=== PATIENT | female | born 1950 | race Caucasian/White ===

== ENCOUNTER → 2020-06-22 | Outpatient (CLI) | payer MEDICARE ==
[~2020-06-22] VITALS: Ht 162.6 cm; Wt 53.5 kg
[~2020-06-22] MED LIST: MAGNESIUM SULFATE 1GM 100 ML IV ONE; MULTIVIT INFUSN,ADULT 4,VIT K 10 ML, THIAMINE INJ 100 MG, FOLIC ACID INJ 1 MG in IV NOR... IV ONE
== END | disposition home or self-care (01) ==
LOC: OPS 10:39
PROVIDERS: ATTEND Internal Medicine
DX: K70.0 Alcoholic fatty liver (principal)
CPT/HCPCS: 96365; 96368; J3411; J3475; J3490; J7030; 96366

== ENCOUNTER → 2020-10-17 | Outpatient (CLI) | payer MEDICARE ==
[~2020-10-17] VITALS: Ht 170.2 cm; Wt 55.8 kg
[~2020-10-17] MED LIST changes: +LIDOCAINE WITH 8.4% SOD BICARB 3 ML DISP.SYRIN. ONE; -MAGNESIUM SULFATE 1GM 100 ML IV ONE; -MULTIVIT INFUSN,ADULT 4,VIT K 10 ML, THIAMINE INJ 100 MG, FOLIC ACID INJ 1 MG in IV NOR... IV ONE
[2020-10-17 08:32] VITALS: BP 132/72
--- NOTE | 2020-10-17 09:31 | NUR ---
pt arrived on foot to unit. she stated that her incision line has been draining clear yellow liquid since she was sent home post surgery about 10 days ago. upon inspection the mid abd incision line was continuously draining from the very top of the incision line. no specific open area noted , the rest of the incision line is dry and intact. Within minutes of pt changing into a hospital gown and a blanket covering her , she was soaked. fitted an ostomy bag over incision line to catch the continuous flow of ascites fluid. pt's sister stated that the pt has not been seen for follow up from surgeon. she stated that she didn't even have an appointment . discussed with pt and her sister that the surgeon needs to be seen as soon as she can get in so that he can look at the incision site. gave them the name and phone number of the surgeon's office. she mad an appointment for tomorrow afternoon. showed patient how to empty ostomy bag and to measure drainage and keep a total amount record for the doctor. the paracentesis was not done as pt did not have enough fluid accumulation in an area to safely access for drainage. discussed with pt and family that once wound is healed and she is not continuously leaking anymore that her ascites fluid will probably start to accumulate and that she will need to follow up with her primary physician and they will have to order a paracentesis at that time. pt out to vehicle per w/c
--- NOTE | 2020-10-17 09:34 | RAD ---
Limited abdominal ultrasound 10/17/2020 INDICATION: Evaluate for ascites, possible paracentesis Discussion: Limited abdominal ultrasound was performed. Only scant ascites is seen between the diaphragm and liver. No other significant ascites was identified throughout all 4 quadrants of the abdomen. There was not adequate fluid for paracentesis. IMPRESSION: Only trace ascites between liver and diaphragm noted. Paracentesis was not performed.
== END | disposition home or self-care (01) ==
LOC: INTRAD 07:22
PROVIDERS: ATTEND Internal Medicine
DX: R18.8 Other ascites (principal); F41.9 Anxiety disorder, unspecified; F32.9 Major depressive disorder, single episode, unspecified; Z79.899 Other long term (current) drug therapy; Z87.891 Personal history of nicotine dependence; Z72.89 Other problems related to lifestyle
CPT/HCPCS: 76705

== ENCOUNTER 2020-12-05 10:08 | Outpatient (CLI) | payer MEDICARE ==
[2020-12-05] VITALS (7 sets, daily range): BP systolic 13–146; BP diastolic 64–77
[~2020-12-05] VITALS: Ht 170.2 cm; Wt 59.0 kg
[2020-12-05 10:59] LABS: BASO % 0 % (0-3); EOS # 0.1 x10^3/uL (0.0-0.7); EOS % 1 % (0-3); HEMATOCRIT 34.6 % (36.0-47.0); HEMOGLOBIN 11.7 g/dL (12.0-15.5); LYMPH # 0.8 x10^3/uL (1.0-4.8); LYMPH % 12 % (24-48); MEAN CORPUSCULAR HEMOGLOBIN 36 pg (25-35); MEAN CORPUSCULAR HGB CONC 34 g/dL (31-37); MEAN CORPUSCULAR VOLUME 108 fL (79-100); MONO # 0.4 x10^3/uL (0.0-1.1); MONO % 6 % (0-9); NEUT # 5.9 x10^3/uL (1.8-7.7); NEUT % 81 % (31-73); PLATELET COUNT 149 x10^3/uL (140-400); RED BLOOD COUNT 3.21 x10^6/uL (3.50-5.40); RED CELL DISTRIBUTION WIDTH 12.6 % (11.5-14.5); WHITE BLOOD COUNT 7.2 x10^3/uL (4.0-11.0)
[2020-12-05] MEDS ORDERED: VITA80003 PO (11:11)
[2020-12-05] MEDS ORDERED: VITA1TAB31 PO (11:12)
[2020-12-05] MEDS ORDERED: IBUP-1027 PO (11:13)
[2020-12-05] MEDS ORDERED: MILK140C PO (11:13)
[2020-12-05 11:23] LABS: PROTHROMBIN TIME PATIENT 15.3 SEC (11.7-14.0)
[2020-12-05] MEDS ORDERED: LIDOCAINE WITH 8.4% SOD BICARB 3 ML DISP.SYRIN. ONE (11:53)
[2020-12-05] MEDS ORDERED: LIDOCAINE WITH 8.4% SOD BICARB 3 ML DISP.SYRIN. IJ ONE (12:30)
--- NOTE | 2020-12-05 13:30 | NUR ---
Discharge Note: JOSIAH GREENBERG Discharge instructions and discharge home medications reviewed with Patient and a copy given. All questions have been answered and understanding verbalized. The following instructions and handouts were given: PARACENTESIS RIGHT LOWER ABDOMINAL DRESSING REMAINED CLEAN, DRY AND INTACT. Patient discharged to HOME with HER BROTHER, DOREEN via PRIVATE VEHICLE.
[2020-12-05 14:00] LABS: BF CLARITY CLEAR; BF COLOR YELLOW; BF MON % 36 %; BF PMN % 64 %; BF RBC COUNT 60 /cmm (Not Established); BF SOURCE ASCITES; BF WBC COUNT 2153 /cmm (Not Established)
--- NOTE | 2020-12-06 08:43 | RAD ---
Ultrasound-guided paracentesis 12/06/2020 6:39 AM Procedure: The risks and benefits of the procedure were discussed the patient. Informed consent was obtained. A timeout procedure was performed. Sonographic evaluation of the abdomen was performed demonstrating ascites . The right lower quadrant was prepped and draped using maximum sterile barrier technique. 1% lidocaine without epinephrine was administered for local anesthesia. Real-time ultrasonographic guidance was used in passing a 5 English Yueh catheter into the fluid collection. 3.1 L of serous ascites was removed. The catheter was removed and pressure held to achieve hemostasis. A sterile dressing was applied. Impression: Successful ultrasound-guided paracentesis
--- NOTE | 2020-12-06 18:06 | PATHOLOGY ---
Note [facility] Accession Number: [id number] TESTS RESULT FLAG UNITS REF RANGE LAB Clinician Provided Cytology Information No. of containers..01 Other (Miscellaneous) Source: 01 PERITONEAL FLUID DIAGNOSIS: 02 PERITONEAL FLUID NEGATIVE FOR MALIGNANT CELLS. FOCALLY REACTIVE MESOTHELIAL CELLS PRESENT WITHIN A BACKGROUND OF CHRONIC AND ACUTE INFLAMMATORY CELLS. THIS INTERPRETATION INCLUDES EVALUATION OF A CELL BLOCK. Signed out by: 02 Jacob Martinez MD, Pathologist NPI- [id number] Performed by: Shannen Jackson, Master Police Detective ([facility]) Gross description: 32ML, YELLOW, 1TP 1CB /LCS 12/06/2020 0631 Local FLAG LEGEND: L-Low Normal,H-High Normal,LL-Alert Low,HH-Alert High <-Panic Low,>-Panic High,A-Abnormal,AA-Critical Abnormal Performed at: [facility] [place] [address] Dennis Liz MD, [address] [facility] [address] [place] [address] Jacob Martinez MD, Performed at: [address], [place], [place] [id number] MD Dennis Liz MD Phone: [phone]
== END 2020-12-05 13:45 | disposition home or self-care (01) ==
LOC: INTRAD 10:08
PROVIDERS: ATTEND Internal Medicine
DX: K70.31 Alcoholic cirrhosis of liver with ascites (principal); F41.9 Anxiety disorder, unspecified; F32.9 Major depressive disorder, single episode, unspecified; Z87.891 Personal history of nicotine dependence; Z79.899 Other long term (current) drug therapy; Z72.89 Other problems related to lifestyle; Z98.890 Other specified postprocedural states
CPT/HCPCS: 36415; 49083; 85025; 85610; 87071; 87075; 89050; C1892; J3490

== ENCOUNTER 2020-12-27 08:02 | Outpatient (CLI) | payer MEDICARE ==
[~2020-12-27] VITALS: Ht 165.1 cm; Wt 59.0 kg
[2020-12-27] VITALS (9 sets, daily range): BP systolic 118–128; BP diastolic 64–80
[~2020-12-27 08:02] MED LIST changes: +IBUP-1027 PO; -LIDOCAINE WITH 8.4% SOD BICARB 3 ML DISP.SYRIN. ONE; +MILK140C PO; +VITA1TAB31 PO; +VITA80003 PO
[2020-12-27] MEDS ORDERED: LIDOCAINE WITH 8.4% SOD BICARB 3 ML DISP.SYRIN. ONE (09:07)
[2020-12-27] MEDS ORDERED: LIDOCAINE WITH 8.4% SOD BICARB 3 ML DISP.SYRIN. IJ ONE (09:15)
[2020-12-27] MEDS ORDERED: ALBUMIN HUMAN 25% 50 ML IV ONE (10:00)
[2020-12-27] MEDS ORDERED: ALBUMIN HUMAN 25% 100 ML IV ONE ×2 (10:00→10:22)
--- NOTE | 2020-12-27 11:08 | NUR ---
OLGA barkley'gisselle. Pt home with family. Discharge instructions reviewed with pt.
--- NOTE | 2020-12-28 08:01 | RAD ---
Ultrasound-guided paracentesis 12/28/2020 5:56 AM Procedure: The risks and benefits of the procedure were discussed the patient. Informed consent was obtained. A timeout procedure was performed. Sonographic evaluation of the abdomen was performed demonstrating ascites . The right lower quadrant was prepped and draped using maximum sterile barrier technique. 1% lidocaine without epinephrine was administered for local anesthesia. Real-time ultrasonographic guidance was used in passing a 5 Luxembourgish Yueh catheter into the fluid collection. 5.3 L of serous ascites was removed. The catheter was removed and pressure held to achieve hemostasis. A sterile dressing was applied. Impression: Successful ultrasound-guided paracentesis
== END 2020-12-27 11:32 | disposition home or self-care (01) ==
LOC: INTRAD 08:02
PROVIDERS: ATTEND Internal Medicine
DX: R18.8 Other ascites (principal); F41.9 Anxiety disorder, unspecified; F32.9 Major depressive disorder, single episode, unspecified; Z79.899 Other long term (current) drug therapy; Z98.890 Other specified postprocedural states; Z87.891 Personal history of nicotine dependence; Z72.89 Other problems related to lifestyle
CPT/HCPCS: 49083; C1892; J3490

== ENCOUNTER 2021-01-03 17:20 | Inpatient (IN) | payer MEDICARE ==
[~2021-01-03] VITALS: Ht 170.2 cm; Wt 59.3 kg
[2021-01-03] MEDS ORDERED: PIPERACILLIN/TAZOBACTAM 3.375 GM in IV NORMAL SALINE 50ML 50 ML IV ONE (18:45)
--- NOTE | 2021-01-03 18:48 | ED.ADGEN ---
Past Medical History Past Medical History: Liver Disease, Other Additional Past Medical Histor: "LIVER FAILURE" Past Surgical History: Tonsillectomy Smoking Status: Former Smoker Alcohol Use: Occasionally General Adult EDM: Chief Complaint: ABDOMINAL PAIN HPI: HPI: Patient is a 70-year-old female with past medical history of cirrhosis who presents to the emergency room with a distended abdomen and tachycardia. She saw her primary care physician today who noticed that she was tachycardic and wa s concerned that she might have peritonitis. Patient does have a hernia and the family has noticed that there is some purple discoloration to it. They state that the primary care physician was able to get it fully reduced in the clinic. This hernia is new. She had a hernia repair for hernia above this in September. Patient denies any URI symptoms, shortness of breath, cough, fever, chills, swe ats, nausea, vomiting, diarrhea. She has been lethargic and listless. Review of Systems: Review of Systems: Complete ROS is negative unless otherwise documented in HPI Current Medications: Current Medications Medications (Trade) Dose Ordered Sig/Ramya Start Time Stop Time Status Last Admin Dose Admin Info (CONTRAST GIVEN -- Rx MONITORING) 1 each PRN DAILY PRN 01/03/21 20:45 01/05/21 20:44 Iohexol (Omnipaque 240 Mg/ml) 50 ml 1X ONCE 01/03/21 20:45 01/03/21 20:46 DC 01/03/21 20:46 50 ML Iohexol (Omnipaque 300 Mg/ml) 60 ml 1X ONCE 01/03/21 20:00 01/03/21 20:01 DC 01/03/21 20:00 60 ML Piperacillin Sod/ Tazobactam Sod 3.375 gm/Sodium Chloride 50 ml @ 100 mls/hr 1X ONCE 01/03/21 18:45 01/03/21 19:14 DC 01/03/21 19:12 100 MLS/HR Sodium Chloride 1,000 ml @ 1,000 mls/hr 1X ONCE 01/03/21 21:45 01/03/21 22:44 Allergies: Allergies: Allergies Coded Allergies Type Severity Reaction Last Updated Verified No Known Drug Allergies 06/22/20 No Physical Exam: PE: General: Awake, alert, NAD. Cachectic, well hydrated. Cooperative HEENT: Atraumatic, EOMI, PERRL, airway patent, moist oral mucosa Neck: Supple, trachea midline Respiratory: CTA bilaterally, normal effort, no wheezing/crackles CV: Sinus tachycardia, no murmur, cap refill <2 GI: Soft, distended abdomen, nontender, umbilical hernia with bruising on the overlying skin MSK: No obvious deformities Skin: Warm, dry, intact Neuro: A&O x3, speech NL, sensory and motor grossly intact, no focal deficits Psych: Normal affect, normal mood, not suicidal or homicidal Current Patient Data: Labs: Laboratory Tests Test 01/03/21 18:42 01/03/21 19:58 White Blood Count 14.3 x10^3/uL (4.0-11.0) H Red Blood Count 3.54 x10^6/uL (3.50-5.40) Hemoglobin 12.2 g/dL (12.0-15.5) Hematocrit 36.5 % (36.0-47.0) Mean Corpuscular Volume 103 fL (79-100) H Mean Corpuscular Hemoglobin 34 pg (25-35) Mean Corpuscular Hemoglobin Concent 33 g/dL (31-37) Red Cell Distribution Width 13.3 % (11.5-14.5) Platelet Count 356 x10^3/uL (140-400) Neutrophils (%) (Auto) 88 % (31-73) H Lymphocytes (%) (Auto) 7 % (24-48) L Monocytes (%) (Auto) 5 % (0-9) Eosinophils (%) (Auto) 0 % (0-3) Basophils (%) (Auto) 0 % (0-3) Neutrophils # (Auto) 12.6 x10^3/uL (1.8-7.7) H Lymphocytes # (Auto) 1.0 x10^3/uL (1.0-4.8) Monocytes # (Auto) 0.7 x10^3/uL (0.0-1.1) Eosinophils # (Auto) 0.0 x10^3/uL (0.0-0.7) Basophils # (Auto) 0.0 x10^3/uL (0.0-0.2) Segmented Neutrophils % 83 % (35-66) H Band Neutrophils % 2 % (0-9) Lymphocytes % 12 % (24-48) L Monocytes % 3 % (0-10) Toxic Granulation Slight Platelet Estimate Adequate (ADEQUATE) Macrocytosis Slight Sodium Level 133 mmol/L (136-145) L Potassium Level 4.4 mmol/L (3.5-5.1) Chloride Level 97 mmol/L (98-107) L Carbon Dioxide Level 27 mmol/L (21-32) Anion Gap 9 (6-14) Blood Urea Nitrogen 25 mg/dL (7-20) H Creatinine 1.0 mg/dL (0.6-1.0) Estimated GFR (Cockcroft-Gault) 55.0 BUN/Creatinine Ratio 25 (6-20) H Glucose Level 138 mg/dL (70-99) H Lactic Acid Level 3.3 mmol/L (0.4-2.0) H Calcium Level 9.1 mg/dL (8.5-10.1) Total Bilirubin 2.3 mg/dL (0.2-1.0) H Aspartate Amino Transferase (AST) 31 U/L (15-37) Alanine Aminotransferase (ALT) 21 U/L (14-59) Alkaline Phosphatase 137 U/L (46-116) H Total Protein 7.9 g/dL (6.4-8.2) Albumin 2.1 g/dL (3.4-5.0) L Albumin/Globulin Ratio 0.4 (1.0-1.7) L Urine Collection Type U cath Urine Color Kajal Urine Clarity Hazy Urine pH 5.0 (<5.0-8.0) Urine Specific Dyess >=1.030 (1.000-1.030) Urine Protein Negative mg/dL (NEG-TRACE) Urine Glucose (UA) Negative mg/dL (NEG) Urine Ketones (Stick) Negative mg/dL (NEG) Urine Blood Negative (NEG) Urine Nitrite Positive (NEG) Urine Bilirubin Negative (NEG) Urine Urobilinogen Dipstick 1.0 mg/dL (0.2 mg/dL) Urine Leukocyte Esterase Trace (NEG) Urine RBC 0 /HPF (0-2) Urine WBC 1-4 /HPF (0-4) Urine Bacteria Mod /HPF (0-FEW) Urine Mucus Mod /LPF Laboratory Tests 01/03/21 18:42 Laboratory Tests 01/03/21 18:42 Vital Signs: Vital Signs Date Time Temp Pulse Resp B/P (MAP) Pulse Ox O2 Delivery O2 Flow Rate FiO2 2/17/21 18:04 98.3 135 27 144/90 (108) 94 Room Air 98.3 EKG: EKG: [] Heart Score: Risk Factors: Risk Factors: DM, Current or recent (<one month) smoker, HTN, HLP, family history of CAD, obesity. Risk Scores: Score 0 - 3: 2.5% MACE over next 6 weeks - Discharge Home Score 4 - 6: 20.3% MACE over next 6 weeks - Admit for Clinical Observation Score 7 - 10: 72.7% MACE over next 6 weeks - Early Invasive Strategies Radiology/Procedures: Radiology/Procedures: [] Course & Med Decision Making: Course & Med Decision Making Pertinent Labs and Imaging studies reviewed. (See chart for details) Patient is a 70-year-old female who presents to the emergency room with concerns of possible peritonitis. Family does feel like her abdomen is more distended than it was after her paracentesis. Patient is tachycardic upon arrival. Pat ient was given Zosyn, blood cultures and lactic were ordered. Patient is hernia is reducible. CT on pelvis will be done to evaluate for any bowel or other signs of infection. We will also determine the amount of ascites. CT shows large amount of ascites with a possible transition point within the hernia concerning for possible small bowel obstruction. Patient does not have any signs of ischemic bowel on the CT. Patient's hernia is fully reducible on exam. She does not have any abdominal pain or vomiting. She does not have any nausea. Given that she is asymptomatic and clinically does not appear to have a small bowel obstruction will hold off on putting an NG in at this time. I will consult Dr. Sneed her surgeon for evaluation in the morning. GI is also consulted. I discussed the case with Dr. Delgadillo who will admit the patient for further care and evaluation. Nona Disclaimer: Nona Disclaimer: This electronic medical record was generated, in whole or in part, using a voice recognition dictation system. Departure Departure Impression: Primary Impression: UTI (urinary tract infection) Additional Impressions: Hernia Sepsis Disposition: ADMITTED INPT THIS HOSP Condition: STABLE Referrals: SCOTT MCCORMICK MD (PCP) Problem Qualifiers ANDRES HAUSER MD Jan 03, 2021 18:48
[2021-01-03 19:11] LABS: BASO % 0 % (0-3); EOS % 0 % (0-3); HEMATOCRIT 36.5 % (36.0-47.0); HEMOGLOBIN 12.2 g/dL (12.0-15.5); LYMPH % 7 % (24-48); MEAN CORPUSCULAR HEMOGLOBIN 34 pg (25-35); MEAN CORPUSCULAR HGB CONC 33 g/dL (31-37); MEAN CORPUSCULAR VOLUME 103 fL (79-100); MONO # 0.7 x10^3/uL (0.0-1.1); MONO % 5 % (0-9); NEUT # 12.6 x10^3/uL (1.8-7.7); NEUT % 88 % (31-73); PLATELET COUNT 356 x10^3/uL (140-400); RED BLOOD COUNT 3.54 x10^6/uL (3.50-5.40); RED CELL DISTRIBUTION WIDTH 13.3 % (11.5-14.5); WHITE BLOOD COUNT 14.3 x10^3/uL (4.0-11.0)
[2021-01-03 19:24] LABS: CALCIUM 9.1 mg/dL (8.5-10.1); POTASSIUM 4.4 mmol/L (3.5-5.1)
--- NOTE | 2021-01-03 19:24 | RAD ---
XR CHEST 1V History: Reason: sepsis / Spl. Instructions: / History: Comparison: None. Findings: Low lung volumes. Elevation the right hemidiaphragm. Linear bibasilar opacities, likely atelectasis. Possible small right pleural effusion. No pneumothorax. Normal heart size. Impression: 1. Low lung volumes with elevation the right hemidiaphragm and linear bibasilar opacities, likely at electasis. 2. Possible small right pleural effusion. Electronically signed by: Gael Powell DO (01/03/2021 7:22 PM) [facility]
[2021-01-03 19:30] LABS: ALBUMIN 2.1 g/dL (3.4-5.0); ALBUMIN/GLOBULIN RATIO 0.4 (1.0-1.7); TOTAL BILIRUBIN 2.3 mg/dL (0.2-1.0); TOTAL PROTEIN 7.9 g/dL (6.4-8.2)
[2021-01-03 19:49] LABS: % BANDS 2 % (0-9); % LYMPHS 12 % (24-48); % MONOS 3 % (0-10); % SEGS 83 % (35-66); PLT ESTIMATE ADEQUATE (ADEQUATE)
[2021-01-03 19:53] LABS: TOXIC GRANULATION SLIGHT
[2021-01-03] MEDS ORDERED: IOHEXOL 300 MG/ML 100ML VIAL. IV ONE (20:00)
[2021-01-03 20:11] LABS: BILIRUBIN,URINE NEGATIVE (NEG); COLOR,URINE AMBER; NITRITE,URINE POSITIVE (NEG); PROTEIN,URINE NEGATIVE (NEG-TRACE)
[2021-01-03 20:16] LABS: CLARITY,URINE HAZY
[2021-01-03 20:17] LABS: BACTERIA,URINE MOD /HPF (0-FEW); RBC,URINE 0 /HPF (0-2)
[2021-01-03] MEDS ORDERED: IOHEXOL 240 MG/ML 50ML VIAL. PO ONE (20:45)
[2021-01-03] MEDS ORDERED: CONTRAST GIVEN. MC PRN (20:45)
--- NOTE | 2021-01-03 21:06 | RAD ---
CT ABDOMEN+PELVIS W History: Reason: abd pain, hernia, tachycardia / Spl. Instructions: OMNI 60ML / History: Technique: After the administration of intravenous contrast, CT imaging was performed of the abdomen and pelvis. Multiplanar images are reviewed. Exposure: One or more of the following individualized dose reduction techniques were utilized for thi s examination: 1. Automated exposure control 2. Adjustment of the mA and/or kV according to patient size 3. Use of iterative reconstruction technique. Comparison: October 05, 2020 Findings: Lower chest: Elevation of the right hemidiaphragm. Right middle and lower lobe atelectasis. Linear le ft basilar atelectasis. Abdomen and pelvis: Large abdominal and pelvic ascites. The liver, spleen, adrenal glands, pancreas a nd gallbladder are unremarkable. No biliary ductal dilatation. Patent portal veins. Small right renal hypodensity, likely cyst although too small to further characterize. No hydronephrosis. Colonic diverticulosis. Normal appendix. There are regions of colonic wall thickening may relate to n ondistention or venous congestion. Small retroperitoneal lymph nodes, unchanged. Decompressed urinary bladder. Mild atheromatous plaque within the nonaneurysmal abdominal aorta and branch vessels. Mildly dilated small bowel loops with transition point at the level of the anterior abdominal wall he rnia containing several loops of small bowel. Decompressed distal small bowel loops. Contrast noted w ithin the proximal mid small bowel loops. Fluid within the hernia sac. Diffuse mesenteric edema. Bones: No pathologic osseous lesions. Impression: 1. Mildly dilated small bowel loops with transition point at the anterior abdominal wall bowel conta ining hernia, concerning for small bowel obstruction. 2. Large abdominal and pelvic ascites. Electronically signed by: Gael Powell DO (01/03/2021 9:04 PM) [facility]
[2021-01-03] MEDS ORDERED: IV NORMAL SALINE 1000ML BAG 1,000 ML IV ONE (21:45)
[2021-01-03 23:30] VITALS: BP 123/69
[2021-01-04] MEDS ORDERED: IBUPROFEN 400 MG TABLET. PO PRN (00:45)
[2021-01-04] MEDS ORDERED: MAGNESIUM HYDROXIDE 2,400 MG/30 ML ORAL.SUSP. PO PRN (01:30)
[2021-01-04] MEDS ORDERED: CALCIUM CARBONATE 500 MG TAB.CHEW PO PRN (01:30)
[2021-01-04] MEDS ORDERED: ONDANSETRON PF 4 MG/2 ML VIAL. IVP PRN (01:30)
[2021-01-04] MEDS ORDERED: BISACODYL 10 MG SUPP.RECT. PR PRN (01:30)
[2021-01-04] MEDS ORDERED: MAG HYDROX/ALUMINUM HYD/SIMETH 30 ML ORAL.SUSP PO PRN (01:30)
[2021-01-04] MEDS: IBUPROFEN 400 MG TABLET. PO PRN ×2 (02:50→16:39)
[2021-01-04 03:00] VITALS: BP 125/62
[2021-01-04 06:23] LABS: BASO # 0.1 x10^3/uL (0.0-0.2); BASO % 1 % (0-3); EOS % 0 % (0-3); HEMATOCRIT 31.7 % (36.0-47.0); HEMOGLOBIN 10.7 g/dL (12.0-15.5); LYMPH # 1.2 x10^3/uL (1.0-4.8); LYMPH % 9 % (24-48); MEAN CORPUSCULAR HEMOGLOBIN 35 pg (25-35); MEAN CORPUSCULAR HGB CONC 34 g/dL (31-37); MEAN CORPUSCULAR VOLUME 102 fL (79-100); MONO # 0.8 x10^3/uL (0.0-1.1); MONO % 6 % (0-9); NEUT # 11.4 x10^3/uL (1.8-7.7); NEUT % 84 % (31-73); PLATELET COUNT 277 x10^3/uL (140-400); RED BLOOD COUNT 3.11 x10^6/uL (3.50-5.40); RED CELL DISTRIBUTION WIDTH 13.1 % (11.5-14.5); WHITE BLOOD COUNT 13.6 x10^3/uL (4.0-11.0)
[2021-01-04 06:41] LABS: CALCIUM 8.3 mg/dL (8.5-10.1); CREATININE 0.8 mg/dL (0.6-1.0); GFR 71.1; POTASSIUM 3.5 mmol/L (3.5-5.1)
[2021-01-04 07:00] VITALS: BP 102/62
[2021-01-04] MEDS: HEPARIN for SUB-Q USE 5,000 UNIT/ML VIAL. SQ SCH ×2 (08:54→12:30)
[2021-01-04] MEDS ORDERED: PIP/TAZO PER PHARMACY MC PRN (09:00)
--- NOTE | 2021-01-04 09:02 | PDOC2 ---
CARLOS A WHEAT PHLEBOTOMY SERVICES REPRESENTATIVE 01/04/21 0902: CONSULT Date of Consult Date of Consult DATE: 01/04/21 TIME: 08:46 Reason for Consult Reason for Consult: SBO, hernia Referring Physician Referring Physician: ER Identification/Chief Complaint Chief Complaint distention, tachycardia Source Source: Chart review, Patient History of Present Illness Reason for Visit: Hx of alcoholic cirrhosis, underwent umbilical hernia repair with Dr Cat 10/05/20. Seen by PCP yesterday and noted distention, tachycardia, and abdominal bugle had some discoloration. Noted she had a paracentesis on 12/27 5.3 L of serous ascites was removed--significant ascites again noted reports no abdominal pain, no n/v, had a stool today per patient Past Medical History Heme/Onc: No pertinent hx Hepatobiliary: Cirrhosis Psych: Addictions Past Surgical History Past Surgical History: Hernia Repair Family History Family History: No Significant Social History Quit ALCOHOL: heavy (quit 11/16/20) Current Problem List Problem List Problems Medical Problems: (1) Sepsis Status: Acute Current Medications Current Medications Current Medications Piperacillin Sod/ Tazobactam Sod 3.375 gm/Sodium Chloride 50 ml @ 100 mls/hr 1X ONCE IV Last administered on 01/03/21at 19:12; Start 01/03/21 at 18:45; Stop 01/03/21 at 19:14; Status DC Iohexol (Omnipaque 300 Mg/ml) 60 ml 1X ONCE IV Last administered on 01/03/21at 20:00; Start 01/03/21 at 20:00; Stop 01/03/21 at 20:01; Status DC Iohexol (Omnipaque 240 Mg/ml) 50 ml 1X ONCE PO Last administered on 01/03/21at 20:46; Start 01/03/21 at 20:45; Stop 01/03/21 at 20:46; Status DC Info (CONTRAST GIVEN -- Rx MONITORING) 1 each PRN DAILY PRN MC SEE COMMENTS; Start 01/03/21 at 20:45; Stop 01/05/21 at 20:44 Sodium Chloride 1,000 ml @ 1,000 mls/hr 1X ONCE IV Last administered on 01/03/21at 21:54; Start 01/03/21 at 21:45; Stop 01/03/21 at 22:44; Status DC Ibuprofen (Motrin) 400 mg PRN Q6HRS PRN PO INFLAMMATION; Start 01/04/21 at 00:45 Ondansetron HCl (Zofran) 4 mg PRN Q6HRS PRN IVP NAUSEA/VOMITING; Start 01/04/21 at 01:30 Al Hydroxide/Mg Hydroxide (Mylanta Plus Xs) 30 ml PRN Q3HRS PRN PO HEARTBURN / GAS; Start 01/04/21 at 01:30 Calcium Carbonate/ Glycine (Tums) 500 mg PRN Q3HRS PRN PO UPSET STOMACH; Start 01/04/21 at 01:30 Ibuprofen (Motrin) 400 mg PRN Q6HRS PRN PO MILD PAIN 1-3 Last administered on 01/04/21at 02:50; Start 01/04/21 at 01:30 Magnesium Hydroxide (Milk Of Magnesia) 2,400 mg PRN Q12HR PRN PO CONSTIPATION; Start 01/04/21 at 01:30 Bisacodyl (Dulcolax Supp) 10 mg PRN DAILY PRN [place] CONSTIPATION; Start 01/04/21 at 01:30 Heparin Sodium (Porcine) (Heparin Sodium) 5,000 unit Q12HR SQ ; Start 01/04/21 at 09:00 Active Scripts Active Reported Milk Thistle (Milk Thistle Seed Extract) 140 Mg Capsule 140 Mg PO DAILY Ibuprofen 400 Mg Tablet 400 Mg PO PRN Q6HRS PRN D3 + K2 Dots 1,000 Units Tab (Vitamin D3/Vitamin K2) 1 Each Tab.rapdis 1 Tab PO DAILY 30 Days Vitamin A 8,000 Unit Capsule 1 Cap PO DAILY 30 Days Allergies Allergies: Coded Allergies: No Known Drug Allergies (Unverified , 06/22/20) ROS General: YES: Fatigue, Malaise; No: Chills PSYCHOLOGICAL ROS: No: Anxiety, Depression Eyes: No Blurry vision, No Double vision HEENT: No: Heacaches, Sore Throat Hematological and Lymphatic: YES: Bleeding Problems; No: Blood Clots Respiratory: No: Cough, Shortness of breath Cardiovascular: No Chest Pain, No Palpitations Gastrointestinal: Yes Other (see hpi) Genitourinary: No Dysuria, No Hematuria Musculoskeletal: No Joint Pain, No Muscle Pain Neurological: No Impaired Coord/balance, No Numbness/Tingling Skin: No Pruritus, No Rash Physical Exam General: Cooperative, No acute distress, Other HEENT: Other (scleral icterus ) Lungs: Clear to auscultation, Normal air movement Heart: Other (tachy) Abdomen: Other (distended from ascites, large umbilical hernia with skin discoloration, however reducible and none tender ) Extremities: No clubbing, No cyanosis Skin: No rashes, No breakdown Neuro: Normal speech, Sensation intact Psych/Mental Status: Mental status NL, Mood NL Vitals VITALS Vital Signs Date Time Temp Pulse Resp B/P (MAP) Pulse Ox O2 Delivery O2 Flow Rate FiO2 01/04/21 07:28 Room Air 01/04/21 07:00 97.6 104 16 102/62 (75) 95 97.6 Labs Labs Laboratory Tests Test 01/03/21 18:42 01/03/21 19:58 01/04/21 01:01 01/04/21 05:19 White Blood Count 14.3 x10^3/uL (4.0-11.0) 13.6 x10^3/uL (4.0-11.0) Red Blood Count 3.54 x10^6/uL (3.50-5.40) 3.11 x10^6/uL (3.50-5.40) Hemoglobin 12.2 g/dL (12.0-15.5) 10.7 g/dL (12.0-15.5) Hematocrit 36.5 % (36.0-47.0) 31.7 % (36.0-47.0) Mean Corpuscular Volume 103 fL (79-100) 102 fL (79-100) Mean Corpuscular Hemoglobin 34 pg (25-35) 35 pg (25-35) Mean Corpuscular Hemoglobin Concent 33 g/dL (31-37) 34 g/dL (31-37) Red Cell Distribution Width 13.3 % (11.5-14.5) 13.1 % (11.5-14.5) Platelet Count 356 x10^3/uL (140-400) 277 x10^3/uL (140-400) Neutrophils (%) (Auto) 88 % (31-73) 84 % (31-73) Lymphocytes (%) (Auto) 7 % (24-48) 9 % (24-48) Monocytes (%) (Auto) 5 % (0-9) 6 % (0-9) Eosinophils (%) (Auto) 0 % (0-3) 0 % (0-3) Basophils (%) (Auto) 0 % (0-3) 1 % (0-3) Neutrophils # (Auto) 12.6 x10^3/uL (1.8-7.7) 11.4 x10^3/uL (1.8-7.7) Lymphocytes # (Auto) 1.0 x10^3/uL (1.0-4.8) 1.2 x10^3/uL (1.0-4.8) Monocytes # (Auto) 0.7 x10^3/uL (0.0-1.1) 0.8 x10^3/uL (0.0-1.1) Eosinophils # (Auto) 0.0 x10^3/uL (0.0-0.7) 0.0 x10^3/uL (0.0-0.7) Basophils # (Auto) 0.0 x10^3/uL (0.0-0.2) 0.1 x10^3/uL (0.0-0.2) Segmented Neutrophils % 83 % (35-66) Band Neutrophils % 2 % (0-9) Lymphocytes % 12 % (24-48) Monocytes % 3 % (0-10) Toxic Granulation Slight Platelet Estimate Adequate (ADEQUATE) Macrocytosis Slight Sodium Level 133 mmol/L (136-145) 131 mmol/L (136-145) Potassium Level 4.4 mmol/L (3.5-5.1) 3.5 mmol/L (3.5-5.1) Chloride Level 97 mmol/L (98-107) 96 mmol/L (98-107) Carbon Dioxide Level 27 mmol/L (21-32) 26 mmol/L (21-32) Anion Gap 9 (6-14) 9 (6-14) Blood Urea Nitrogen 25 mg/dL (7-20) 20 mg/dL (7-20) Creatinine 1.0 mg/dL (0.6-1.0) 0.8 mg/dL (0.6-1.0) Estimated GFR (Cockcroft-Gault) 55.0 71.1 BUN/Creatinine Ratio 25 (6-20) Glucose Level 138 mg/dL (70-99) 105 mg/dL (70-99) Lactic Acid Level 3.3 mmol/L (0.4-2.0) 1.7 mmol/L (0.4-2.0) Calcium Level 9.1 mg/dL (8.5-10.1) 8.3 mg/dL (8.5-10.1) Total Bilirubin 2.3 mg/dL (0.2-1.0) Aspartate Amino Transf (AST/SGOT) 31 U/L (15-37) Alanine Aminotransferase (ALT/SGPT) 21 U/L (14-59) Alkaline Phosphatase 137 U/L (46-116) Total Protein 7.9 g/dL (6.4-8.2) Albumin 2.1 g/dL (3.4-5.0) Albumin/Globulin Ratio 0.4 (1.0-1.7) Urine Collection Type U cath Urine Color Kajal Urine Clarity Hazy Urine pH 5.0 (<5.0-8.0) Urine Specific [place] >=1.030 (1.000-1.030) Urine Protein Negative mg/dL (NEG-TRACE) Urine Glucose (UA) Negative mg/dL (NEG) Urine Ketones (Stick) Negative mg/dL (NEG) Urine Blood Negative (NEG) Urine Nitrite Positive (NEG) Urine Bilirubin Negative (NEG) Urine Urobilinogen Dipstick 1.0 mg/dL (0.2 mg/dL) Urine Leukocyte Esterase Trace (NEG) Urine RBC 0 /HPF (0-2) Urine WBC 1-4 /HPF (0-4) Urine Bacteria Mod /HPF (0-FEW) Urine Mucus Mod /LPF Laboratory Tests Test 01/03/21 18:42 01/03/21 19:58 01/04/21 01:01 01/04/21 05:19 White Blood Count 14.3 x10^3/uL (4.0-11.0) 13.6 x10^3/uL (4.0-11.0) Red Blood Count 3.54 x10^6/uL (3.50-5.40) 3.11 x10^6/uL (3.50-5.40) Hemoglobin 12.2 g/dL (12.0-15.5) 10.7 g/dL (12.0-15.5) Hematocrit 36.5 % (36.0-47.0) 31.7 % (36.0-47.0) Mean Corpuscular Volume 103 fL (79-100) 102 fL (79-100) Mean Corpuscular Hemoglobin 34 pg (25-35) 35 pg (25-35) Mean Corpuscular Hemoglobin Concent 33 g/dL (31-37) 34 g/dL (31-37) Red Cell Distribution Width 13.3 % (11.5-14.5) 13.1 % (11.5-14.5) Platelet Count 356 x10^3/uL (140-400) 277 x10^3/uL (140-400) Neutrophils (%) (Auto) 88 % (31-73) 84 % (31-73) Lymphocytes (%) (Auto) 7 % (24-48) 9 % (24-48) Monocytes (%) (Auto) 5 % (0-9) 6 % (0-9) Eosinophils (%) (Auto) 0 % (0-3) 0 % (0-3) Basophils (%) (Auto) 0 % (0-3) 1 % (0-3) Neutrophils # (Auto) 12.6 x10^3/uL (1.8-7.7) 11.4 x10^3/uL (1.8-7.7) Lymphocytes # (Auto) 1.0 x10^3/uL (1.0-4.8) 1.2 x10^3/uL (1.0-4.8) Monocytes # (Auto) 0.7 x10^3/uL (0.0-1.1) 0.8 x10^3/uL (0.0-1.1) Eosinophils # (Auto) 0.0 x10^3/uL (0.0-0.7) 0.0 x10^3/uL (0.0-0.7) Basophils # (Auto) 0.0 x10^3/uL (0.0-0.2) 0.1 x10^3/uL (0.0-0.2) Segmented Neutrophils % 83 % (35-66) Band Neutrophils % 2 % (0-9) Lymphocytes % 12 % (24-48) Monocytes % 3 % (0-10) Toxic Granulation Slight Platelet Estimate Adequate (ADEQUATE) Macrocytosis Slight Sodium Level 133 mmol/L (136-145) 131 mmol/L (136-145) Potassium Level 4.4 mmol/L (3.5-5.1) 3.5 mmol/L (3.5-5.1) Chloride Level 97 mmol/L (98-107) 96 mmol/L (98-107) Carbon Dioxide Level 27 mmol/L (21-32) 26 mmol/L (21-32) Anion Gap 9 (6-14) 9 (6-14) Blood Urea Nitrogen 25 mg/dL (7-20) 20 mg/dL (7-20) Creatinine 1.0 mg/dL (0.6-1.0) 0.8 mg/dL (0.6-1.0) Estimated GFR (Cockcroft-Gault) 55.0 71.1 BUN/Creatinine Ratio 25 (6-20) Glucose Level 138 mg/dL (70-99) 105 mg/dL (70-99) Lactic Acid Level 3.3 mmol/L (0.4-2.0) 1.7 mmol/L (0.4-2.0) Calcium Level 9.1 mg/dL (8.5-10.1) 8.3 mg/dL (8.5-10.1) Total Bilirubin 2.3 mg/dL (0.2-1.0) Aspartate Amino Transf (AST/SGOT) 31 U/L (15-37) Alanine Aminotransferase (ALT/SGPT) 21 U/L (14-59) Alkaline Phosphatase 137 U/L (46-116) Total Protein 7.9 g/dL (6.4-8.2) Albumin 2.1 g/dL (3.4-5.0) Albumin/Globulin Ratio 0.4 (1.0-1.7) Urine Collection Type U cath Urine Color Kajal Urine Clarity Hazy Urine pH 5.0 (<5.0-8.0) Urine Specific [place] >=1.030 (1.000-1.030) Urine Protein Negative mg/dL (NEG-TRACE) Urine Glucose (UA) Negative mg/dL (NEG) Urine Ketones (Stick) Negative mg/dL (NEG) Urine Blood Negative (NEG) Urine Nitrite Positive (NEG) Urine Bilirubin Negative (NEG) Urine Urobilinogen Dipstick 1.0 mg/dL (0.2 mg/dL) Urine Leukocyte Esterase Trace (NEG) Urine RBC 0 /HPF (0-2) Urine WBC 1-4 /HPF (0-4) Urine Bacteria Mod /HPF (0-FEW) Urine Mucus Mod /LPF Assessment/Plan Assessment/Plan alcoholic cirrhosis --ascites, umbilical hernia---does not appear obstructed--no pain, having bowel function--? worsened by her ongoing ascites will review with Dr Cat, poor surgical candidate JADYN CAT MD 01/04/21 1103: CONSULT Assessment/Plan Assessment/Plan Patient seen and examined by me currently resting comfortably in bed denies any abdominal pain. Recurrent umbilical hernia secondary to her ascites from her alcoholic liver disease. No signs of obstruction hernia was easily reduced without any pain. No reason to repair umbilical hernia at this time due to significantly high surgical risk as well as recurrence as long as ascites is present. Agree with Brenda assessment plan CARLOS A WHEAT APRN Jan 04, 2021 09:02 JADYN CAT MD Jan 04, 2021 11:03
--- NOTE | 2021-01-04 09:16 | NUR ---
SW following. Discussed with RN, pt from home with brother, room air, cardiac diet. Surgery and GI consulted. Surgery still reviewing. Pt had a paracentesis on 01/03/21. Currently on IV abx. RN advised no SW needs at this time. SW will continue to follow.
--- NOTE | 2021-01-04 09:17 | PDOC1 ---
History and Physical Date of Admission Date of Admission DATE: 01/04/21 TIME: 09:16 Source Source: Chart review, Patient History of Present Illness History of Present Illness Ms. Galeano, is a 70-year-old female with past medical history of cirrhosis who presents to the emergency room with a distended abdomen and tachycardia. She saw her primary care physician today who noticed that she was tachycardic and was concerned that she might have peritonitis. Patient does have a hernia and the family has noticed that there is some purple discoloration to it. They state that the primary care physician was able to get it fully reduced in the clinic. This hernia is new. She had a hernia repair for hernia above this in September. Patient denies any URI symptoms, shortness of breath, cough, fever, chills, sweats, nausea, vomiting, diarrhea. She has been lethargic and listless. Past Medical History Cardiovascular: HTN Heme/Onc: No pertinent hx Hepatobiliary: Cirrhosis Psych: Addictions Past Surgical History Past Surgical History: Hernia Repair Family History Family History: No Significant Social History Smoke: No ALCOHOL: heavy (quit 11/16/20) Drugs: None Current Problem List Problem List Problems Medical Problems: (1) Sepsis Status: Acute Current Medications Current Medications Current Medications Piperacillin Sod/ Tazobactam Sod 3.375 gm/Sodium Chloride 50 ml @ 100 mls/hr 1X ONCE IV Last administered on 01/03/21at 19:12; Start 01/03/21 at 18:45; Stop 01/03/21 at 19:14; Status DC Iohexol (Omnipaque 300 Mg/ml) 60 ml 1X ONCE IV Last administered on 01/03/21at 20:00; Start 01/03/21 at 20:00; Stop 01/03/21 at 20:01; Status DC Iohexol (Omnipaque 240 Mg/ml) 50 ml 1X ONCE PO Last administered on 01/03/21at 20:46; Start 01/03/21 at 20:45; Stop 01/03/21 at 20:46; Status DC Info (CONTRAST GIVEN -- Rx MONITORING) 1 each PRN DAILY PRN MC SEE COMMENTS; Start 01/03/21 at 20:45; Stop 01/05/21 at 20:44 Sodium Chloride 1,000 ml @ 1,000 mls/hr 1X ONCE IV Last administered on 01/03/21at 21:54; Start 01/03/21 at 21:45; Stop 01/03/21 at 22:44; Status DC Ibuprofen (Motrin) 400 mg PRN Q6HRS PRN PO INFLAMMATION; Start 01/04/21 at 00:45 Ondansetron HCl (Zofran) 4 mg PRN Q6HRS PRN IVP NAUSEA/VOMITING; Start 01/04/21 at 01:30 Al Hydroxide/Mg Hydroxide (Mylanta Plus Xs) 30 ml PRN Q3HRS PRN PO HEARTBURN / GAS; Start 01/04/21 at 01:30 Calcium Carbonate/ Glycine (Tums) 500 mg PRN Q3HRS PRN PO UPSET STOMACH; Start 01/04/21 at 01:30 Ibuprofen (Motrin) 400 mg PRN Q6HRS PRN PO MILD PAIN 1-3 Last administered on 01/04/21at 02:50; Start 01/04/21 at 01:30 Magnesium Hydroxide (Milk Of Magnesia) 2,400 mg PRN Q12HR PRN PO CONSTIPATION; Start 01/04/21 at 01:30 Bisacodyl (Dulcolax Supp) 10 mg PRN DAILY PRN [place] CONSTIPATION; Start 01/04/21 at 01:30 Heparin Sodium (Porcine) (Heparin Sodium) 5,000 unit Q12HR SQ Last administered on 01/04/21at 08:54; Start 01/04/21 at 09:00 Piperacillin Sod/ Tazobactam Sod (Zosyn Per Pharmacy) 1 each PRN DAILY PRN MC SEE COMMENTS; Start 01/04/21 at 09:00 Piperacillin Sod/ Tazobactam Sod 3.375 gm/Sodium Chloride 50 ml @ 100 mls/hr Q6H IV ; Start 01/04/21 at 09:00 Active Scripts Active Reported Milk Thistle (Milk Thistle Seed Extract) 140 Mg Capsule 140 Mg PO DAILY Ibuprofen 400 Mg Tablet 400 Mg PO PRN Q6HRS PRN D3 + K2 Dots 1,000 Units Tab (Vitamin D3/Vitamin K2) 1 Each Tab.rapdis 1 Tab PO DAILY 30 Days Vitamin A 8,000 Unit Capsule 1 Cap PO DAILY 30 Days Allergies Allergies: Coded Allergies: No Known Drug Allergies (Unverified , 06/22/20) ROS General: No: Chills, Night Sweats, Fatigue, Malaise, Appetite, Other HEENT: No: Heacaches, Visual Changes, Hearing change, Nasal congestion, Nasal discharge, Oral lesions, Sinus pain, Sore Throat, Epistaxis, Sneezing, Snoring, Tinnitus, Vertigo, Vocal changes, Other Respiratory: No: Cough, Hemoptysis, Orthopnea, Pleuritic Pain, Shortness of breath, SOB with excertion, Sputum Changes, Stridor, Tachypnea, Wheezing, Other Cardiovascular: No Chest Pain, No Palpitations, No Orthopnea, No Paroxysmal Noc. Dyspnea, No Edema, No Lt Headedness, No Other Gastrointestinal: No Nausea, No Vomiting, No Abdominal Pain, No Diarrhea, No Constipation, No Melena, No Hematochezia, No Other Genitourinary: No Dysuria, No Frequency, No Incontinence, No Hematuria, No Re tention, No Discharge, No Urgency, No Pain, No Flank Pain, No Other, No , No , No , No , No , No , No Musculoskeletal: No Gait Disturbance, No Joint Pain, No Joint Stiffness, No Joint Swelling, No Muscle Pain, No Muscular Weakness, No Pain In:, No Swelling In:, No Other Neurological: No Behavorial Changes, No Bowel/Bladder ControlChng, No Confusion, No Dizziness, No Gait Disturbance, No Headaches, No Impaired Coord/balance, No Memory Loss, No Numbness/Tingling, No Seizures, No Speech Problems, No Tremors, No Visual Changes, No Weakness, No Other Skin: No Dry Skin, No Eczema, No Hair Changes, No Lumps, No Mole Changes, No Mottling, No Nail Changes, No Pruritus, No Rash, No Skin Lesion Changes, No Other, No Acne Physical Exam General: Alert, Cooperative, mild distress, Other HEENT: Atraumatic, Other (icterus) Lungs: Clear to auscultation Abdomen: Other (disteded, fluid, hernia vental is repaired, some fluid wave noted, ) Extremities: No cyanosis Neuro: Normal tone, Sensation intact Psych/Mental Status: Mental status NL, Mood NL Vitals Vitals Vital Signs Date Time Temp Pulse Resp B/P (MAP) Pulse Ox O2 Delivery O2 Flow Rate FiO2 01/04/21 07:28 Room Air 01/04/21 07:00 97.6 104 16 102/62 (75) 95 97.6 Labs Labs Laboratory Tests Test 01/03/21 18:42 01/03/21 19:58 01/04/21 01:01 01/04/21 05:19 White Blood Count 14.3 x10^3/uL (4.0-11.0) 13.6 x10^3/uL (4.0-11.0) Red Blood Count 3.54 x10^6/uL (3.50-5.40) 3.11 x10^6/uL (3.50-5.40) Hemoglobin 12.2 g/dL (12.0-15.5) 10.7 g/dL (12.0-15.5) Hematocrit 36.5 % (36.0-47.0) 31.7 % (36.0-47.0) Mean Corpuscular Volume 103 fL (79-100) 102 fL (79-100) Mean Corpuscular Hemoglobin 34 pg (25-35) 35 pg (25-35) Mean Corpuscular Hemoglobin Concent 33 g/dL (31-37) 34 g/dL (31-37) Red Cell Distribution Width 13.3 % (11.5-14.5) 13.1 % (11.5-14.5) Platelet Count 356 x10^3/uL (140-400) 277 x10^3/uL (140-400) Neutrophils (%) (Auto) 88 % (31-73) 84 % (31-73) Lymphocytes (%) (Auto) 7 % (24-48) 9 % (24-48) Monocytes (%) (Auto) 5 % (0-9) 6 % (0-9) Eosinophils (%) (Auto) 0 % (0-3) 0 % (0-3) Basophils (%) (Auto) 0 % (0-3) 1 % (0-3) Neutrophils # (Auto) 12.6 x10^3/uL (1.8-7.7) 11.4 x10^3/uL (1.8-7.7) Lymphocytes # (Auto) 1.0 x10^3/uL (1.0-4.8) 1.2 x10^3/uL (1.0-4.8) Monocytes # (Auto) 0.7 x10^3/uL (0.0-1.1) 0.8 x10^3/uL (0.0-1.1) Eosinophils # (Auto) 0.0 x10^3/uL (0.0-0.7) 0.0 x10^3/uL (0.0-0.7) Basophils # (Auto) 0.0 x10^3/uL (0.0-0.2) 0.1 x10^3/uL (0.0-0.2) Segmented Neutrophils % 83 % (35-66) Band Neutrophils % 2 % (0-9) Lymphocytes % 12 % (24-48) Monocytes % 3 % (0-10) Toxic Granulation Slight Platelet Estimate Adequate (ADEQUATE) Macrocytosis Slight Sodium Level 133 mmol/L (136-145) 131 mmol/L (136-145) Potassium Level 4.4 mmol/L (3.5-5.1) 3.5 mmol/L (3.5-5.1) Chloride Level 97 mmol/L (98-107) 96 mmol/L (98-107) Carbon Dioxide Level 27 mmol/L (21-32) 26 mmol/L (21-32) Anion Gap 9 (6-14) 9 (6-14) Blood Urea Nitrogen 25 mg/dL (7-20) 20 mg/dL (7-20) Creatinine 1.0 mg/dL (0.6-1.0) 0.8 mg/dL (0.6-1.0) Estimated GFR (Cockcroft-Gault) 55.0 71.1 BUN/Creatinine Ratio 25 (6-20) Glucose Level 138 mg/dL (70-99) 105 mg/dL (70-99) Lactic Acid Level 3.3 mmol/L (0.4-2.0) 1.7 mmol/L (0.4-2.0) Calcium Level 9.1 mg/dL (8.5-10.1) 8.3 mg/dL (8.5-10.1) Total Bilirubin 2.3 mg/dL (0.2-1.0) Aspartate Amino Transf (AST/SGOT) 31 U/L (15-37) Alanine Aminotransferase (ALT/SGPT) 21 U/L (14-59) Alkaline Phosphatase 137 U/L (46-116) Total Protein 7.9 g/dL (6.4-8.2) Albumin 2.1 g/dL (3.4-5.0) Albumin/Globulin Ratio 0.4 (1.0-1.7) Urine Collection Type U cath Urine Color Kajal Urine Clarity Hazy Urine pH 5.0 (<5.0-8.0) Urine Specific [place] >=1.030 (1.000-1.030) Urine Protein Negative mg/dL (NEG-TRACE) Urine Glucose (UA) Negative mg/dL (NEG) Urine Ketones (Stick) Negative mg/dL (NEG) Urine Blood Negative (NEG) Urine Nitrite Positive (NEG) Urine Bilirubin Negative (NEG) Urine Urobilinogen Dipstick 1.0 mg/dL (0.2 mg/dL) Urine Leukocyte Esterase Trace (NEG) Urine RBC 0 /HPF (0-2) Urine WBC 1-4 /HPF (0-4) Urine Bacteria Mod /HPF (0-FEW) Urine Mucus Mod /LPF Laboratory Tests Test 01/03/21 18:42 01/03/21 19:58 01/04/21 01:01 01/04/21 05:19 White Blood Count 14.3 x10^3/uL (4.0-11.0) 13.6 x10^3/uL (4.0-11.0) Red Blood Count 3.54 x10^6/uL (3.50-5.40) 3.11 x10^6/uL (3.50-5.40) Hemoglobin 12.2 g/dL (12.0-15.5) 10.7 g/dL (12.0-15.5) Hematocrit 36.5 % (36.0-47.0) 31.7 % (36.0-47.0) Mean Corpuscular Volume 103 fL (79-100) 102 fL (79-100) Mean Corpuscular Hemoglobin 34 pg (25-35) 35 pg (25-35) Mean Corpuscular Hemoglobin Concent 33 g/dL (31-37) 34 g/dL (31-37) Red Cell Distribution Width 13.3 % (11.5-14.5) 13.1 % (11.5-14.5) Platelet Count 356 x10^3/uL (140-400) 277 x10^3/uL (140-400) Neutrophils (%) (Auto) 88 % (31-73) 84 % (31-73) Lymphocytes (%) (Auto) 7 % (24-48) 9 % (24-48) Monocytes (%) (Auto) 5 % (0-9) 6 % (0-9) Eosinophils (%) (Auto) 0 % (0-3) 0 % (0-3) Basophils (%) (Auto) 0 % (0-3) 1 % (0-3) Neutrophils # (Auto) 12.6 x10^3/uL (1.8-7.7) 11.4 x10^3/uL (1.8-7.7) Lymphocytes # (Auto) 1.0 x10^3/uL (1.0-4.8) 1.2 x10^3/uL (1.0-4.8) Monocytes # (Auto) 0.7 x10^3/uL (0.0-1.1) 0.8 x10^3/uL (0.0-1.1) Eosinophils # (Auto) 0.0 x10^3/uL (0.0-0.7) 0.0 x10^3/uL (0.0-0.7) Basophils # (Auto) 0.0 x10^3/uL (0.0-0.2) 0.1 x10^3/uL (0.0-0.2) Segmented Neutrophils % 83 % (35-66) Band Neutrophils % 2 % (0-9) Lymphocytes % 12 % (24-48) Monocytes % 3 % (0-10) Toxic Granulation Slight Platelet Estimate Adequate (ADEQUATE) Macrocytosis Slight Sodium Level 133 mmol/L (136-145) 131 mmol/L (136-145) Potassium Level 4.4 mmol/L (3.5-5.1) 3.5 mmol/L (3.5-5.1) Chloride Level 97 mmol/L (98-107) 96 mmol/L (98-107) Carbon Dioxide Level 27 mmol/L (21-32) 26 mmol/L (21-32) Anion Gap 9 (6-14) 9 (6-14) Blood Urea Nitrogen 25 mg/dL (7-20) 20 mg/dL (7-20) Creatinine 1.0 mg/dL (0.6-1.0) 0.8 mg/dL (0.6-1.0) Estimated GFR (Cockcroft-Gault) 55.0 71.1 BUN/Creatinine Ratio 25 (6-20) Glucose Level 138 mg/dL (70-99) 105 mg/dL (70-99) Lactic Acid Level 3.3 mmol/L (0.4-2.0) 1.7 mmol/L (0.4-2.0) Calcium Level 9.1 mg/dL (8.5-10.1) 8.3 mg/dL (8.5-10.1) Total Bilirubin 2.3 mg/dL (0.2-1.0) Aspartate Amino Transf (AST/SGOT) 31 U/L (15-37) Alanine Aminotransferase (ALT/SGPT) 21 U/L (14-59) Alkaline Phosphatase 137 U/L (46-116) Total Protein 7.9 g/dL (6.4-8.2) Albumin 2.1 g/dL (3.4-5.0) Albumin/Globulin Ratio 0.4 (1.0-1.7) Urine Collection Type U cath Urine Color Kajal Urine Clarity Hazy Urine pH 5.0 (<5.0-8.0) Urine Specific [place] >=1.030 (1.000-1.030) Urine Protein Negative mg/dL (NEG-TRACE) Urine Glucose (UA) Negative mg/dL (NEG) Urine Ketones (Stick) Negative mg/dL (NEG) Urine Blood Negative (NEG) Urine Nitrite Positive (NEG) Urine Bilirubin Negative (NEG) Urine Urobilinogen Dipstick 1.0 mg/dL (0.2 mg/dL) Urine Leukocyte Esterase Trace (NEG) Urine RBC 0 /HPF (0-2) Urine WBC 1-4 /HPF (0-4) Urine Bacteria Mod /HPF (0-FEW) Urine Mucus Mod /LPF VTE Prophylaxis Ordered VTE Prophylaxis Devices: No VTE Pharmacological Prophylaxi: Yes Assessment/Plan Assessment/Plan sepsis UTI abd ascites, cirrhosis, liver disease from EtOH abuse for years. will check paracentesis to r/o SBP on zosyn mal;nutrition, weight loss long discussion with patient and her son on risks of recurrent paracentesis and benefit of fluid balance, and need to est. psychology care and f/u at for possible liver transplant list. Justifications for Admission Other Justification Cirrhosis, abdominal ascites, UTI JENNIFER ARREGUIN MD Jan 04, 2021 09:17
[2021-01-04] MEDS: PIPERACILLIN/TAZOBACTAM 3.375 GM in IV NORMAL SALINE 50ML 50 ML IV SCH ×3 (09:30→21:10)
--- NOTE | 2021-01-04 10:23 | PDOC2 ---
GI CONSULT Date of Service: DATE: 01/04/21 TIME: 10:22 Reason For Consult: hernia, possible SBO, cirrhosis HPI: HPI: 70 y/o female admitted through ER. Very pleasant, not the greatest historian. Sent to ER for abdominal distention and tachycardia per PCP. Chart indicates h/o alcoholic liver disease. Had paracentesis on 12/05/20 and 12/28/20 (5.3L). Fluid studies okay. This time w/ possible UTI, also concern for abd wall hernia w/ obstruction on CT. Decreased appetite and weight loss (35-50 pounds) recently, though weight has stabilized. Denies reflux/heartburn, dysphagia, n/v, diarrhea, constipation, hematochezia, or melena. Unremarkable liver on imaging here. Recalls seeing Dr. Crystal, a corn popper at , thinks she has had testing for Hepatitis there, doesn't know if she's on the transplant list. EGD and colonoscopy long ago, recalls no significant findings. No GB, pancreas, or PUD history. Takes milk thistle at home. Also thinks recently she was given two new medications, one that starts with an S. PMH: PMH: recurrent ascites requiring paracentesis tonsillectomy, umbilical hernia repair FH: Family History: No pertinent hx (denies liver disease) Social History: Smoke: Quit ALCOHOL: heavy (drank wine in the past - last drink 11/16/20) ROS: GEN: Denies fevers, chills, sweats HEENT: Denies blurred vision, sore throat CV: Denies chest pain RESP: Denies shortness of air, cough GI: Per HPI : Denies hematuria, dysuria ENDO: +weight loss NEURO: Denies confusion, dizziness MSK: Denies weakness, joint pain/swelling SKIN: Denies jaundice, pruritus Vitals: Vitals: Vital Signs Date Time Temp Pulse Resp B/P (MAP) Pulse Ox O2 Delivery O2 Flow Rate FiO2 01/04/21 07:28 Room Air 01/04/21 07:00 97.6 104 16 102/62 (74) 95 97.6 Labs: Labs: Laboratory Tests Test 01/03/21 18:42 01/03/21 19:58 01/04/21 01:01 01/04/21 05:19 White Blood Count 14.3 x10^3/uL (4.0-11.0) 13.6 x10^3/uL (4.0-11.0) Red Blood Count 3.54 x10^6/uL (3.50-5.40) 3.11 x10^6/uL (3.50-5.40) Hemoglobin 12.2 g/dL (12.0-15.5) 10.7 g/dL (12.0-15.5) Hematocrit 36.5 % (36.0-47.0) 31.7 % (36.0-47.0) Mean Corpuscular Volume 103 fL (79-100) 102 fL (79-100) Mean Corpuscular Hemoglobin 34 pg (25-35) 35 pg (25-35) Mean Corpuscular Hemoglobin Concent 33 g/dL (31-37) 34 g/dL (31-37) Red Cell Distribution Width 13.3 % (11.5-14.5) 13.1 % (11.5-14.5) Platelet Count 356 x10^3/uL (140-400) 277 x10^3/uL (140-400) Neutrophils (%) (Auto) 88 % (31-73) 84 % (31-73) Lymphocytes (%) (Auto) 7 % (24-48) 9 % (24-48) Monocytes (%) (Auto) 5 % (0-9) 6 % (0-9) Eosinophils (%) (Auto) 0 % (0-3) 0 % (0-3) Basophils (%) (Auto) 0 % (0-3) 1 % (0-3) Neutrophils # (Auto) 12.6 x10^3/uL (1.8-7.7) 11.4 x10^3/uL (1.8-7.7) Lymphocytes # (Auto) 1.0 x10^3/uL (1.0-4.8) 1.2 x10^3/uL (1.0-4.8) Monocytes # (Auto) 0.7 x10^3/uL (0.0-1.1) 0.8 x10^3/uL (0.0-1.1) Eosinophils # (Auto) 0.0 x10^3/uL (0.0-0.7) 0.0 x10^3/uL (0.0-0.7) Basophils # (Auto) 0.0 x10^3/uL (0.0-0.2) 0.1 x10^3/uL (0.0-0.2) Segmented Neutrophils % 83 % (35-66) Band Neutrophils % 2 % (0-9) Lymphocytes % 12 % (24-48) Monocytes % 3 % (0-10) Toxic Granulation Slight Platelet Estimate Adequate (ADEQUATE) Macrocytosis Slight Sodium Level 133 mmol/L (136-145) 131 mmol/L (136-145) Potassium Level 4.4 mmol/L (3.5-5.1) 3.5 mmol/L (3.5-5.1) Chloride Level 97 mmol/L (98-107) 96 mmol/L (98-107) Carbon Dioxide Level 27 mmol/L (21-32) 26 mmol/L (21-32) Anion Gap 9 (6-14) 9 (6-14) Blood Urea Nitrogen 25 mg/dL (7-20) 20 mg/dL (7-20) Creatinine 1.0 mg/dL (0.6-1.0) 0.8 mg/dL (0.6-1.0) Estimated GFR (Cockcroft-Gault) 55.0 71.1 BUN/Creatinine Ratio 25 (6-20) Glucose Level 138 mg/dL (70-99) 105 mg/dL (70-99) Lactic Acid Level 3.3 mmol/L (0.4-2.0) 1.7 mmol/L (0.4-2.0) Calcium Level 9.1 mg/dL (8.5-10.1) 8.3 mg/dL (8.5-10.1) Total Bilirubin 2.3 mg/dL (0.2-1.0) Aspartate Amino Transf (AST/SGOT) 31 U/L (15-37) Alanine Aminotransferase (ALT/SGPT) 21 U/L (14-59) Alkaline Phosphatase 137 U/L (46-116) Total Protein 7.9 g/dL (6.4-8.2) Albumin 2.1 g/dL (3.4-5.0) Albumin/Globulin Ratio 0.4 (1.0-1.7) Urine Collection Type U cath Urine Color Kajal Urine Clarity Hazy Urine pH 5.0 (<5.0-8.0) Urine Specific [place] >=1.030 (1.000-1.030) Urine Protein Negative mg/dL (NEG-TRACE) Urine Glucose (UA) Negative mg/dL (NEG) Urine Ketones (Stick) Negative mg/dL (NEG) Urine Blood Negative (NEG) Urine Nitrite Positive (NEG) Urine Bilirubin Negative (NEG) Urine Urobilinogen Dipstick 1.0 mg/dL (0.2 mg/dL) Urine Leukocyte Esterase Trace (NEG) Urine RBC 0 /HPF (0-2) Urine WBC 1-4 /HPF (0-4) Urine Bacteria Mod /HPF (0-FEW) Urine Mucus Mod /LPF Allergies: Coded Allergies: No Known Drug Allergies (Unverified , 06/22/20) Medications: Current Medications Medications (Trade) Dose Ordered Sig/Ramya Route PRN Reason Start Time Stop Time Status Last Admin Dose Admin Piperacillin Sod/ Tazobactam Sod 3.375 gm/Sodium Chloride 50 ml @ 100 mls/hr 1X ONCE IV 01/03/21 18:45 01/03/21 19:14 DC 01/03/21 19:12 Iohexol (Omnipaque 300 Mg/ml) 60 ml 1X ONCE IV 01/03/21 20:00 01/03/21 20:01 DC 01/03/21 20:00 Iohexol (Omnipaque 240 Mg/ml) 50 ml 1X ONCE PO 01/03/21 20:45 01/03/21 20:46 DC 01/03/21 20:46 Sodium Chloride 1,000 ml @ 1,000 mls/hr 1X ONCE IV 01/03/21 21:45 01/03/21 22:44 DC 01/03/21 21:54 Ibuprofen (Motrin) 400 mg PRN Q6HRS PRN PO MILD PAIN 1-3 01/04/21 01:30 01/04/21 02:50 Heparin Sodium (Porcine) (Heparin Sodium) 5,000 unit Q12HR SQ 01/04/21 09:00 01/04/21 08:54 Piperacillin Sod/ Tazobactam Sod 3.375 gm/Sodium Chloride 50 ml @ 100 mls/hr Q6H IV 01/04/21 09:00 01/04/21 09:30 Imaging: Imaging: CT A/P Impression: 1. Mildly dilated small bowel loops with transition point at the anterior abdominal wall bowel containing hernia, concerning for small bowel obstruction. 2. Large abdominal and pelvic ascites. PE: GEN: NAD HEENT: Atraumatic, PERRL LUNGS: CTAB HEART: RRR ABD: BS+, distended w/ ascites, large reducible hernia EXTREMITY: No edema SKIN: No rashes, no jaundice NEURO/PSYCH: A & O 3, forgetful A/P: A/P: Tachycardia, UTI Recurrent ascites, h/o alcoholic liver disease - ?seen at [facility] ?on diuretics - last paracentesis 12/28/20 Macrocytic anemia, leukocytosis, lactic acidosis, hyponatremia Decreased appetite, weight loss Abd wall hernia containing SB w/ mild dilation and transition point (per CT) - clinically doesn't seem obstructed currently CRC screen - reports past colonoscopy -- Will check doppler, ask for paracentesis, and ask for records from [facility]. Check INR, additional labs. Follow surgery recs re: hernia. KATHIE CLEMENTS Jan 04, 2021 10:22
[2021-01-04 11:00] VITALS: BP 102/56
[2021-01-04] MEDS: IV NORMAL SALINE 1000ML BAG 1,000 ML IV SCH ×2 (11:18→21:10)
[2021-01-04 15:00] VITALS: BP 100/58
[2021-01-04] MEDS ORDERED: VANCOMYCIN 1.25 GM in IV NORMAL SALINE 250ML 250 ML IV ONE (15:30)
--- NOTE | 2021-01-04 17:13 | RAD ---
EXAM: Abdominal Doppler sonogram. HISTORY: Ascites. TECHNIQUE: Argueta scale and color Doppler sonographic imaging of the abdomen was performed. COMPARISON: CT dated 01/03/2021. FINDINGS: There is hepatic surface nodularity due to cirrhosis. No focal hepatic lesion is seen sonog raphically. There is moderate to large amount of ascites. The portal veins are patent with normal dir ectional flow. The hepatic veins and splenic vein are not assessed. IMPRESSION: 1. Patent portal veins with normal directional flow. 2. Hepatic cirrhosis. 3. Moderate to large ascites. Electronically signed by: Annie Soria MD (01/04/2021 5:11 PM) [id number]
[2021-01-04] MEDS ORDERED: SPIR100T4 PO (18:05)
[2021-01-04] MEDS ORDERED: VITA1TAB19 PO (18:05)
[2021-01-04] MEDS ORDERED: FURO-69 PO (18:08)
[2021-01-04] MEDS: VANCOMYCIN PER PHARMACY MC PRN (18:15)
--- NOTE | 2021-01-04 18:17 | NUR ---
Pharmacy Vancomycin Dosing Note S:Consulted to monitor and dose vancomycin started 01/04/21. O:JOSIAH GREENBERG is a 70 year old F with Empiric . Height: 5 feet, 7 inches Weight: 52.6 kg [place] Body Weight: 61.60 Adjusted Body Weight: 58.00 Dosing Weight: Actual Other Antibiotics: ZOSYN LABS: Last BUN: Last Creatinine: 0.8 Creatinine Clearance: 45 mL/min Last WBC: 13.6 Last Procalcitonin: 0.99 Tmax (past 24 hours): 99.6 Microbiology: I/O: Drug Levels: Last level: on at Last dose given 01/04/21 at 1600 Vancomycin Dosing: Loading Dose: 1250 mg x1 Dosing Weight: Actual Target Trough: 10-20 A: Based on: WEIGHT AND RENAL FUNCTION, VANCOMYCIN 1.25GM IV BOLUS GIVEN, P: 1. Begin Vancomycin 750 mg IV q24h 2. Follow up Trough level on 01/06/21 at 1530 3. Pharmacy will continue to monitor, follow and adjust therapy as needed. MARLO JO [facility], 01/04/21 [id number]
[2021-01-04 19:00] VITALS: BP 110/68
[2021-01-04 23:00] VITALS: BP 105/66
[2021-01-05] VITALS (10 sets, daily range): BP systolic 98–127; BP diastolic 52–72
[2021-01-05] MEDS: PIPERACILLIN/TAZOBACTAM 3.375 GM in IV NORMAL SALINE 50ML 50 ML IV SCH ×4 (05:33→20:59)
[2021-01-05] MEDS ORDERED: LIDOCAINE WITH 8.4% SOD BICARB 3 ML DISP.SYRIN. ONE (07:43)
--- NOTE | 2021-01-05 08:28 | PDOC ---
CARLOS A WHEAT LEATHER DRIER 01/05/21 0828: SURGICAL PROGRESS NOTE DATE: 01/05/21 TIME: 08:26 Subjective paracentesis planned today "hernia is hideous looking" Vital Signs Vital Signs Date Time Temp Pulse Resp B/P (MAP) Pulse Ox O2 Delivery O2 Flow Rate FiO2 01/05/21 07:00 98.1 91 16 102/62 (75) 95 Room Air 98.1 I&O Intake and Output 01/05/21 06:59 Intake Total 0 ml Balance 0 ml Intake Oral 0 ml # Voids 1 General: Alert, Oriented X3, Cooperative Abdomen: Soft, Other (Nontender, hernia reducible, ascites noted ) Labs Laboratory Tests Test 01/03/21 18:42 01/03/21 19:58 01/04/21 01:01 01/04/21 05:19 White Blood Count 14.3 x10^3/uL (4.0-11.0) 13.6 x10^3/uL (4.0-11.0) Red Blood Count 3.54 x10^6/uL (3.50-5.40) 3.11 x10^6/uL (3.50-5.40) Hemoglobin 12.2 g/dL (12.0-15.5) 10.7 g/dL (12.0-15.5) Hematocrit 36.5 % (36.0-47.0) 31.7 % (36.0-47.0) Mean Corpuscular Volume 103 fL (79-100) 102 fL (79-100) Mean Corpuscular Hemoglobin 34 pg (25-35) 35 pg (25-35) Mean Corpuscular Hemoglobin Concent 33 g/dL (31-37) 34 g/dL (31-37) Red Cell Distribution Width 13.3 % (11.5-14.5) 13.1 % (11.5-14.5) Platelet Count 356 x10^3/uL (140-400) 277 x10^3/uL (140-400) Neutrophils (%) (Auto) 88 % (31-73) 84 % (31-73) Lymphocytes (%) (Auto) 7 % (24-48) 9 % (24-48) Monocytes (%) (Auto) 5 % (0-9) 6 % (0-9) Eosinophils (%) (Auto) 0 % (0-3) 0 % (0-3) Basophils (%) (Auto) 0 % (0-3) 1 % (0-3) Neutrophils # (Auto) 12.6 x10^3/uL (1.8-7.7) 11.4 x10^3/uL (1.8-7.7) Lymphocytes # (Auto) 1.0 x10^3/uL (1.0-4.8) 1.2 x10^3/uL (1.0-4.8) Monocytes # (Auto) 0.7 x10^3/uL (0.0-1.1) 0.8 x10^3/uL (0.0-1.1) Eosinophils # (Auto) 0.0 x10^3/uL (0.0-0.7) 0.0 x10^3/uL (0.0-0.7) Basophils # (Auto) 0.0 x10^3/uL (0.0-0.2) 0.1 x10^3/uL (0.0-0.2) Segmented Neutrophils % 83 % (35-66) Band Neutrophils % 2 % (0-9) Lymphocytes % 12 % (24-48) Monocytes % 3 % (0-10) Toxic Granulation Slight Platelet Estimate Adequate (ADEQUATE) Macrocytosis Slight Sodium Level 133 mmol/L (136-145) 131 mmol/L (136-145) Potassium Level 4.4 mmol/L (3.5-5.1) 3.5 mmol/L (3.5-5.1) Chloride Level 97 mmol/L (98-107) 96 mmol/L (98-107) Carbon Dioxide Level 27 mmol/L (21-32) 26 mmol/L (21-32) Anion Gap 9 (6-14) 9 (6-14) Blood Urea Nitrogen 25 mg/dL (7-20) 20 mg/dL (7-20) Creatinine 1.0 mg/dL (0.6-1.0) 0.8 mg/dL (0.6-1.0) Estimated GFR (Cockcroft-Gault) 55.0 71.1 BUN/Creatinine Ratio 25 (6-20) Glucose Level 138 mg/dL (70-99) 105 mg/dL (70-99) Lactic Acid Level 3.3 mmol/L (0.4-2.0) 1.7 mmol/L (0.4-2.0) Calcium Level 9.1 mg/dL (8.5-10.1) 8.3 mg/dL (8.5-10.1) Total Bilirubin 2.3 mg/dL (0.2-1.0) Aspartate Amino Transf (AST/SGOT) 31 U/L (15-37) Alanine Aminotransferase (ALT/SGPT) 21 U/L (14-59) Alkaline Phosphatase 137 U/L (46-116) Total Protein 7.9 g/dL (6.4-8.2) Albumin 2.1 g/dL (3.4-5.0) Albumin/Globulin Ratio 0.4 (1.0-1.7) Urine Collection Type U cath Urine Color Kajal Urine Clarity Hazy Urine pH 5.0 (<5.0-8.0) Urine Specific [place] >=1.030 (1.000-1.030) Urine Protein Negative mg/dL (NEG-TRACE) Urine Glucose (UA) Negative mg/dL (NEG) Urine Ketones (Stick) Negative mg/dL (NEG) Urine Blood Negative (NEG) Urine Nitrite Positive (NEG) Urine Bilirubin Negative (NEG) Urine Urobilinogen Dipstick 1.0 mg/dL (0.2 mg/dL) Urine Leukocyte Esterase Trace (NEG) Urine RBC 0 /HPF (0-2) Urine WBC 1-4 /HPF (0-4) Urine Bacteria Mod /HPF (0-FEW) Urine Mucus Mod /LPF Prothrombin Time 17.0 SEC (11.7-14.0) Prothromb Time International Ratio 1.4 (0.8-1.1) Iron Level 19 ug/dL (50-170) Total Iron Binding Capacity 123 ug/dL (250-450) Iron Saturation 15 % (15-34) Vitamin B12 Level 324 pg/mL (247-911) Procalcitonin 0.99 ng/mL (0.00-0.10) Hepatitis A IgM Antibody Nonreactive (Nonreactive) Hepatitis B Surface Antigen Nonreactive (Nonreactive) Hepatitis B Core IgM Antibody Nonreactive (Nonreactive) Hepatitis C IgG Antibody Nonreactive (Nonreactive) Test 01/04/21 12:07 01/04/21 12:45 01/04/21 14:45 Tumor Marker Alpha Fetoprotein 1.9 ng/mL (0.0-8.3) Coronavirus (PCR) Not detected (Not Detected) SARS-CoV-2 Antigen (Rapid) Negative (NEGATIVE) Ammonia < 10 mcmol/L (11-34) Laboratory Tests Test 01/04/21 12:07 01/04/21 12:45 01/04/21 14:45 Tumor Marker Alpha Fetoprotein 1.9 ng/mL (0.0-8.3) Coronavirus (PCR) Not detected (Not Detected) SARS-CoV-2 Antigen (Rapid) Negative (NEGATIVE) Ammonia < 10 mcmol/L (11-34) Problem List Problems Medical Problems: (1) Sepsis Status: Acute Assessment/Plan no plans for hernia repair, reoccurrence with her ongoing ascites related cirrhosis hernia continues to be reducible, non-tender will sign off, please call with questions Justicifation of Admission Dx: Justifications for Admission: Justification of Admission Dx: N/A JADYN CAT MD 01/05/21 0846: SURGICAL PROGRESS NOTE Assessment/Plan Agree with Stephen's assessment and plan CARLOS A WHEAT APRN Jan 05, 2021 08:28 JADYN CAT MD Jan 05, 2021 08:46
[2021-01-05] MEDS ORDERED: LIDOCAINE WITH 8.4% SOD BICARB 3 ML DISP.SYRIN. IJ ONE (08:45)
--- NOTE | 2021-01-05 09:07 | PDOC ---
Date of Service: DATE: 01/05/21 TIME: 09:00 Subjective: Subjective: On the toilet. IR waiting to take her for paracentesis. Objective: Objective: D/w surgery - no plans for hernia repair. Vital Signs: Vital Signs Date Time Temp Pulse Resp B/P (MAP) Pulse Ox O2 Delivery O2 Flow Rate FiO2 01/05/21 08:58 105 15 109/65 (80) 95 Room Air 01/05/21 07:00 98.1 98.1 Labs: Laboratory Tests Test 01/04/21 12:07 01/04/21 12:45 01/04/21 14:45 Tumor Marker Alpha Fetoprotein 1.9 ng/mL Coronavirus (PCR) Not detected SARS-CoV-2 Antigen (Rapid) Negative Ammonia < 10 mcmol/L BLOOD CULTURE Final GRAM POSITIVE COCCI GROWTH IN ONE OF TWO BOTTLES OF ONE SET CALLED TO MEAGAN CASANOVA 01/04/21 AT 1430 BY [employer] CULTURE SENT TO [facility] FOR FURTHER WORKUP Imaging: Doppler US 01/04 IMPRESSION: 1. Patent portal veins with normal directional flow. 2. Hepatic cirrhosis. 3. Moderate to large ascites. PE: GEN: NAD LUNGS: CTAB HEART: RRR ABD: distended NEURO/PSYCH: A & O 3 A/P: UTI, GPC bacteremia Recurrent ascites, alcoholic liver disease Macrocytic anemia (low normal B12), mild coagulopathy, hyponatremia, abnormal LFTs Abd wall hernia containing SB COVID negative 01/04 -- Await paracentesis/fluid studies. Follow labs. Will follow-up re: any records received from Hepatology. ?on diuretics at home - ?restart Could also consider addition of B12. Salt restriction. No alcohol. With most recent labs, MELD 19. Justicifation of Admission Dx: Justifications for Admission: Justification of Admission Dx: N/A KATHIE CLEMENTS Jan 05, 2021 09:07
--- NOTE | 2021-01-05 10:15 | NUR ---
SW following. Discussed with RN, pt from home with brother, room air, cardiac diet, COVID-19 negative. Pt having a paracentesis today. GI following. RN advised no SW needs at this time. SW will continue to follow.
--- NOTE | 2021-01-05 10:33 | PDOC ---
PROGRESS NOTES Date of Service: DATE: 01/05/21 TIME: 10:31 Chief Complaint Chief Complaint sepsis UTI severe malnutrition, abd ascites, cirrhosis, liver disease from EtOH abuse for years. will check paracentesis to r/o SBP History of Present Illness History of Present Illness on zosyn mal;nutrition, weight loss paracentesis today, feels better, Vitals Vitals Vital Signs Date Time Temp Pulse Resp B/P (MAP) Pulse Ox O2 Delivery O2 Flow Rate FiO2 01/05/21 09:13 104 15 110/52 (71) 95 Room Air 01/05/21 07:00 98.1 98.1 Physical Exam General: Alert, Oriented X3, Cooperative Heart: Regular rate, Other (tachy) Lungs: Clear Abdomen: Soft, Other (Nontender, hernia reducible, ascites noted ) Extremities: No cyanosis Skin: No rashes, No breakdown Labs LABS Laboratory Tests Test 01/04/21 12:07 01/04/21 12:45 01/04/21 14:45 Tumor Marker Alpha Fetoprotein 1.9 ng/mL (0.0-8.3) Coronavirus (PCR) Not detected (Not Detected) SARS-CoV-2 Antigen (Rapid) Negative (NEGATIVE) Ammonia < 10 mcmol/L (11-34) Assessment and Plan Assessmemt and Plan Problems Medical Problems: (1) Sepsis Status: Acute Comment Review of Relevant I have reviewed the following items chilo (where applicable) has been applied. Labs Laboratory Tests Test 01/03/21 18:42 01/03/21 19:58 01/04/21 01:01 01/04/21 05:19 White Blood Count 14.3 x10^3/uL (4.0-11.0) 13.6 x10^3/uL (4.0-11.0) Red Blood Count 3.54 x10^6/uL (3.50-5.40) 3.11 x10^6/uL (3.50-5.40) Hemoglobin 12.2 g/dL (12.0-15.5) 10.7 g/dL (12.0-15.5) Hematocrit 36.5 % (36.0-47.0) 31.7 % (36.0-47.0) Mean Corpuscular Volume 103 fL (79-100) 102 fL (79-100) Mean Corpuscular Hemoglobin 34 pg (25-35) 35 pg (25-35) Mean Corpuscular Hemoglobin Concent 33 g/dL (31-37) 34 g/dL (31-37) Red Cell Distribution Width 13.3 % (11.5-14.5) 13.1 % (11.5-14.5) Platelet Count 356 x10^3/uL (140-400) 277 x10^3/uL (140-400) Neutrophils (%) (Auto) 88 % (31-73) 84 % (31-73) Lymphocytes (%) (Auto) 7 % (24-48) 9 % (24-48) Monocytes (%) (Auto) 5 % (0-9) 6 % (0-9) Eosinophils (%) (Auto) 0 % (0-3) 0 % (0-3) Basophils (%) (Auto) 0 % (0-3) 1 % (0-3) Neutrophils # (Auto) 12.6 x10^3/uL (1.8-7.7) 11.4 x10^3/uL (1.8-7.7) Lymphocytes # (Auto) 1.0 x10^3/uL (1.0-4.8) 1.2 x10^3/uL (1.0-4.8) Monocytes # (Auto) 0.7 x10^3/uL (0.0-1.1) 0.8 x10^3/uL (0.0-1.1) Eosinophils # (Auto) 0.0 x10^3/uL (0.0-0.7) 0.0 x10^3/uL (0.0-0.7) Basophils # (Auto) 0.0 x10^3/uL (0.0-0.2) 0.1 x10^3/uL (0.0-0.2) Segmented Neutrophils % 83 % (35-66) Band Neutrophils % 2 % (0-9) Lymphocytes % 12 % (24-48) Monocytes % 3 % (0-10) Toxic Granulation Slight Platelet Estimate Adequate (ADEQUATE) Macrocytosis Slight Sodium Level 133 mmol/L (136-145) 131 mmol/L (136-145) Potassium Level 4.4 mmol/L (3.5-5.1) 3.5 mmol/L (3.5-5.1) Chloride Level 97 mmol/L (98-107) 96 mmol/L (98-107) Carbon Dioxide Level 27 mmol/L (21-32) 26 mmol/L (21-32) Anion Gap 9 (6-14) 9 (6-14) Blood Urea Nitrogen 25 mg/dL (7-20) 20 mg/dL (7-20) Creatinine 1.0 mg/dL (0.6-1.0) 0.8 mg/dL (0.6-1.0) Estimated GFR (Cockcroft-Gault) 55.0 71.1 BUN/Creatinine Ratio 25 (6-20) Glucose Level 138 mg/dL (70-99) 105 mg/dL (70-99) Lactic Acid Level 3.3 mmol/L (0.4-2.0) 1.7 mmol/L (0.4-2.0) Calcium Level 9.1 mg/dL (8.5-10.1) 8.3 mg/dL (8.5-10.1) Total Bilirubin 2.3 mg/dL (0.2-1.0) Aspartate Amino Transf (AST/SGOT) 31 U/L (15-37) Alanine Aminotransferase (ALT/SGPT) 21 U/L (14-59) Alkaline Phosphatase 137 U/L (46-116) Total Protein 7.9 g/dL (6.4-8.2) Albumin 2.1 g/dL (3.4-5.0) Albumin/Globulin Ratio 0.4 (1.0-1.7) Urine Collection Type U cath Urine Color K[place] Urine Clarity Hazy Urine pH 5.0 (<5.0-8.0) Urine Specific [place] >=1.030 (1.000-1.030) Urine Protein Negative mg/dL (NEG-TRACE) Urine Glucose (UA) Negative mg/dL (NEG) Urine Ketones (Stick) Negative mg/dL (NEG) Urine Blood Negative (NEG) Urine Nitrite Positive (NEG) Urine Bilirubin Negative (NEG) Urine Urobilinogen Dipstick 1.0 mg/dL (0.2 mg/dL) Urine Leukocyte Esterase Trace (NEG) Urine RBC 0 /HPF (0-2) Urine WBC 1-4 /HPF (0-4) Urine Bacteria Mod /HPF (0-FEW) Urine Mucus Mod /LPF Prothrombin Time 17.0 SEC (11.7-14.0) Prothromb Time International Ratio 1.4 (0.8-1.1) Iron Level 19 ug/dL (50-170) Total Iron Binding Capacity 123 ug/dL (250-450) Iron Saturation 15 % (15-34) Vitamin B12 Level 324 pg/mL (247-911) Procalcitonin 0.99 ng/mL (0.00-0.10) Hepatitis A IgM Antibody Nonreactive (Nonreactive) Hepatitis B Surface Antigen Nonreactive (Nonreactive) Hepatitis B Core IgM Antibody Nonreactive (Nonreactive) Hepatitis C IgG Antibody Nonreactive (Nonreactive) Test 01/04/21 12:07 01/04/21 12:45 01/04/21 14:45 Tumor Marker Alpha Fetoprotein 1.9 ng/mL (0.0-8.3) Coronavirus (PCR) Not detected (Not Detected) SARS-CoV-2 Antigen (Rapid) Negative (NEGATIVE) Ammonia < 10 mcmol/L (11-34) Laboratory Tests Test 01/04/21 12:07 01/04/21 12:45 01/04/21 14:45 Tumor Marker Alpha Fetoprotein 1.9 ng/mL (0.0-8.3) Coronavirus (PCR) Not detected (Not Detected) SARS-CoV-2 Antigen (Rapid) Negative (NEGATIVE) Ammonia < 10 mcmol/L (11-34) Microbiology 01/03/21 Blood Culture - Preliminary, Resulted Medications Current Medications Piperacillin Sod/ Tazobactam Sod 3.375 gm/Sodium Chloride 50 ml @ 100 mls/hr 1X ONCE IV Last administered on 01/03/21at 19:12; Start 01/03/21 at 18:45; Stop 01/03/21 at 19:14; Status DC Iohexol (Omnipaque 300 Mg/ml) 60 ml 1X ONCE IV Last administered on 01/03/21at 20:00; Start 01/03/21 at 20:00; Stop 01/03/21 at 20:01; Status DC Iohexol (Omnipaque 240 Mg/ml) 50 ml 1X ONCE PO Last administered on 01/03/21at 20:46; Start 01/03/21 at 20:45; Stop 01/03/21 at 20:46; Status DC Info (CONTRAST GIVEN -- Rx MONITORING) 1 each PRN DAILY PRN MC SEE COMMENTS; Start 01/03/21 at 20:45; Stop 01/05/21 at 20:44 Sodium Chloride 1,000 ml @ 1,000 mls/hr 1X ONCE IV Last administered on 01/03/21at 21:54; Start 01/03/21 at 21:45; Stop 01/03/21 at 22:44; Status DC Ibuprofen (Motrin) 400 mg PRN Q6HRS PRN PO INFLAMMATION; Start 01/04/21 at 00:45; Status Cancel Ondansetron HCl (Zofran) 4 mg PRN Q6HRS PRN IVP NAUSEA/VOMITING; Start 01/04/21 at 01:30 Al Hydroxide/Mg Hydroxide (Mylanta Plus Xs) 30 ml PRN Q3HRS PRN PO HEARTBURN / GAS; Start 01/04/21 at 01:30 Calcium Carbonate/ Glycine (Tums) 500 mg PRN Q3HRS PRN PO UPSET STOMACH; Start 01/04/21 at 01:30 Ibuprofen (Motrin) 400 mg PRN Q6HRS PRN PO MILD PAIN 1-3 Last administered on 01/04/21at 16:39; Start 01/04/21 at 01:30 Magnesium Hydroxide (Milk Of Magnesia) 2,400 mg PRN Q12HR PRN PO CONSTIPATION; Start 01/04/21 at 01:30 Bisacodyl (Dulcolax Supp) 10 mg PRN DAILY PRN [place] CONSTIPATION; Start 01/04/21 at 01:30 Heparin Sodium (Porcine) (Heparin Sodium) 5,000 unit Q12HR SQ Last administered on 01/04/21at 08:54; Start 01/04/21 at 09:00 Piperacillin Sod/ Tazobactam Sod (Zosyn Per Pharmacy) 1 each PRN DAILY PRN MC SEE COMMENTS; Start 01/04/21 at 09:00 Piperacillin Sod/ Tazobactam Sod 3.375 gm/Sodium Chloride 50 ml @ 100 mls/hr Q6H IV Last administered on 01/05/21at 10:16; Start 01/04/21 at 09:00 Sodium Chloride 1,000 ml @ 75 mls/hr [id number] IV Last administered on 01/04/21at 21:10; Start 01/04/21 at 12:00 Vancomycin HCl (Vanco Per Pharmacy) 1 each PRN DAILY PRN MC SEE COMMENTS Last administered on 01/04/21at 18:15; Start 01/04/21 at 14:45 Vancomycin HCl 1.25 gm/Sodium Chloride 250 ml @ 166.667 mls/hr 1X ONCE IV Last administered on 01/04/21at 15:58; Start 01/04/21 at 15:30; Stop 01/04/21 at 16:59; Status DC Vancomycin HCl 750 mg/Sodium Chloride 250 ml @ 250 mls/hr Q24H IV ; Start 01/05/21 at 16:00 Vancomycin HCl (Vancomycin Trough Level) 1 each 1X ONCE MC ; Start 01/06/21 at 15:30; Stop 01/06/21 at 15:31 Lidocaine HCl (Buffered Lidocaine 1%) 3 ml STK-MED ONCE .ROUTE ; Start 01/05/21 at 07:43; Stop 01/05/21 at 07:43; Status DC Lidocaine HCl (Buffered Lidocaine 1%) 3 ml 1X ONCE IJ Last administered on 01/05/21at 08:50; Start 01/05/21 at 08:45; Stop 01/05/21 at 08:46; Status DC Active Scripts Active Reported Lasix (Furosemide) 20 Mg Tablet 20 Mg PO DAILY B Complex (Vitamin B Complex) 1 Each Tablet 1 Tab PO DAILY 30 Days Spironolactone 100 Mg Tablet 100 Mg PO DAILY Milk Thistle (Milk Thistle Seed Extract) 140 Mg Capsule 140 Mg PO DAILY Ibuprofen 400 Mg Tablet 400 Mg PO PRN Q6HRS PRN D3 + K2 Dots 1,000 Units Tab (Vitamin D3/Vitamin K2) 1 Each Tab.rapdis 1 Tab PO DAILY 30 Days Vitamin A 8,000 Unit Capsule 1 Cap PO DAILY 30 Days Vitals/I & O Vital Sign - Last 24 Hours 01/04/21 01/04/21 01/04/21 01/04/21 11:00 15:00 19:00 20:00 Temp 97.6 98.0 98.8 97.6 98.0 98.8 Pulse 100 98 116 Resp 16 16 16 B/P (MAP) 102/56 (71) 100/58 (72) 110/68 (82) Pulse Ox 97 97 96 O2 Delivery Room Air Room Air Room Air Room Air 2/01/05/21 01/05/21 01/05/21 23:00 03:00 07:00 07:25 Temp 98.3 98.1 98.1 98.3 98.1 98.1 Pulse 109 89 91 Resp 16 16 16 B/P (MAP) 105/66 (79) 106/60 (75) 102/62 (75) Pulse Ox 96 96 95 O2 Delivery Room Air Room Air Room Air Room Air 01/05/21 01/05/21 01/05/21 08:43 08:58 09:13 Pulse 95 105 104 Resp 15 15 15 B/P (MAP) 127/65 (85) 109/65 (80) 110/52 (71) Pulse Ox 95 95 95 O2 Delivery Room Air Room Air Room Air Intake and Output 01/04/21 01/04/21 01/05/21 15:00 23:00 07:00 Intake Total 0 ml Balance 0 ml Nutrition Consultation Dietary Evaluation: Recommendations by RD: Dietary education by RD, Increase Calorie Intake, Protein supplementation Comments: sending ensure with meals continue low Na ( Cardiac ) diet Expected Outcomes/Goals: to meet >75% est nutr needs Malnutrition Findings: Muscle Mass (Severe): Severe Depletion Weight Status: Underweight Fluid Accumulation (Severe): Severe Justicifation of Admission Dx: Justifications for Admission: Justification of Admission Dx: N/A JENNIFER ARREGUIN MD Jan 05, 2021 10:32
[2021-01-05 10:35] LABS: BF CLARITY HAZY; BF COLOR YELLOW; BF SOURCE ASCITES
[2021-01-05 10:36] LABS: BF RBC COUNT 433 /cmm (Not Established); BF WBC COUNT 1189 /cmm (Not Established)
[2021-01-05] MEDS: VANCOMYCIN PER PHARMACY MC PRN (11:15)
--- NOTE | 2021-01-05 11:15 | RAD ---
Procedure: Ultrasound guided paracentesis Clinical Indication: Adult female with recurrent abdominal ascites Sedation: Local anesthesia only Antibiotics: None Fluoro Time: None Contrast: Not applicable Sterility: The procedure was performed in its entirety using appropriate elements of sterile technique. Consent: The procedure was explained in its entirety to the patient or the patients designated customer contact representative by a member of the treatment team, including a discussion of the risks, benefits and commonly accepted alternatives to the procedure, as well as the expected consequences of no therapy whatsoever. Discussion of the risks included, but was not limited to, those that are most frequent and those that are rare but possibly severe or life-threatening, as well as the possibility of unforeseen complications. Technique and Findings: Following informed consent, the patient was prepped and draped in the usual sterile fashion. Ultrasound interrogation of the abdomen revealed abdominal ascites. A hard copy ultrasound image was recorded. 1% Lidocaine was used to achieve local anesthesia over the area of interest, and a 6 [place] [id number] catheter was advanced into the peritoneal cavity under ultrasound guidance. 4000 cc of thin yellow ascites was then withdrawn. The catheter was removed and hemostasis was achieved with manual compression. Complications: No immediate Impression: 1. Ultrasound-guided paracentesis as described
[2021-01-05] MEDS: IBUPROFEN 400 MG TABLET. PO PRN ×2 (11:44→22:41)
[2021-01-05 12:10] LABS: BF MON % 23 %; BF PMN % 77 %
[2021-01-05 13:00] LABS: HEMATOCRIT 29.3 % (36.0-47.0); HEMOGLOBIN 9.8 g/dL (12.0-15.5); RED BLOOD COUNT 2.87 x10^6/uL (3.50-5.40); RED CELL DISTRIBUTION WIDTH 12.8 % (11.5-14.5); WHITE BLOOD COUNT 11.1 x10^3/uL (4.0-11.0)
[2021-01-05 13:19] LABS: ALBUMIN 1.5 g/dL (3.4-5.0); ALBUMIN/GLOBULIN RATIO 0.3 (1.0-1.7); CALCIUM 7.8 mg/dL (8.5-10.1); CREATININE 0.7 mg/dL (0.6-1.0); TOTAL BILIRUBIN 1.6 mg/dL (0.2-1.0); TOTAL PROTEIN 6.1 g/dL (6.4-8.2)
[2021-01-05 13:24] LABS: POTASSIUM 2.9 mmol/L (3.5-5.1)
[2021-01-05] MEDS ORDERED: POTASSIUM CHLORIDE 20 MEQ TABLET.ER. PO ONE ×2 (14:30→18:00)
[2021-01-05] MEDS ORDERED: CYANOCOBALAMIN (VITAMIN B-12) 1,000 MCG/ML VIAL. IM ONE (14:30)
[2021-01-05] MEDS: VITAMIN B12,B9,B6 COMPLEX 1 TABLET. PO SCH (14:35)
[2021-01-05] MEDS: CHOLECALCIFEROL (VITAMIN D3) 5,000 UNIT CAPSULE PO SCH (14:35)
[2021-01-05] MEDS ORDERED: MAGNESIUM SULFATE 2GM 50 ML IV ONE (15:00)
[2021-01-05] MEDS ORDERED: VANCOMYCIN 750 MG in IV NORMAL SALINE 250ML 250 ML IV SCH (16:00)
[2021-01-05] MEDS: HEPARIN for SUB-Q USE 5,000 UNIT/ML VIAL. SQ SCH (20:56)
[2021-01-05] MEDS: LACTOBACILLUS RHAMNOSUS GG 1 CAPSULE. PO SCH (20:57)
[2021-01-06] MEDS: PIPERACILLIN/TAZOBACTAM 3.375 GM in IV NORMAL SALINE 50ML 50 ML IV SCH ×4 (02:22→17:43)
[2021-01-06 03:00] VITALS: BP 101/63
[2021-01-06 07:00] VITALS: BP 99/63
[2021-01-06] MEDS: CHOLECALCIFEROL (VITAMIN D3) 5,000 UNIT CAPSULE PO SCH (08:58)
[2021-01-06] MEDS: POTASSIUM CHLORIDE 20 MEQ TABLET.ER. PO SCH (08:58)
[2021-01-06] MEDS: VITAMIN B12,B9,B6 COMPLEX 1 TABLET. PO SCH (08:58)
[2021-01-06] MEDS: LACTOBACILLUS RHAMNOSUS GG 1 CAPSULE. PO SCH ×2 (08:58→20:07)
[2021-01-06] MEDS: IBUPROFEN 400 MG TABLET. PO PRN ×2 (08:59→20:07)
[2021-01-06] MEDS: HEPARIN for SUB-Q USE 5,000 UNIT/ML VIAL. SQ SCH ×2 (09:00→20:33)
[2021-01-06] MEDS ORDERED: PIP/TAZO PER PHARMACY MC PRN (09:15)
--- NOTE | 2021-01-06 09:19 | PDOC ---
PROGRESS NOTES Date of Service: DATE: 01/06/21 TIME: 09:14 Chief Complaint Chief Complaint sepsis UTI MSSA bacteremia, severe malnutrition, abd ascites, cirrhosis, liver disease from EtOH abuse for years. s/p paracentesis History of Present Illness History of Present Illness on zosyn since admit, blood cx showed Gm pos cocci, yesterdaay, VANCOmycin dosed, now today, MSSA pos cult. panchal sens. will stop the vanc, order echo, consult ID, severe malntrition paracentesis yesterday, cont current, that cx is pending, the PMN count is < 250, not likely SBP, risk of secondary staph infection is high Vitals Vitals Vital Signs Date Time Temp Pulse Resp B/P (MAP) Pulse Ox O2 Delivery O2 Flow Rate FiO2 01/06/21 07:00 98.4 80 18 99/63 (75) 94 Room Air 98.4 Physical Exam General: Alert, Oriented X3, Cooperative Heart: Regular rate, Other (tachy) Lungs: Clear Abdomen: Soft, Other (Nontender, hernia reducible, ascites noted ) Extremities: No cyanosis Skin: No rashes, No breakdown Labs LABS Laboratory Tests Test 01/05/21 12:48 White Blood Count 11.1 x10^3/uL (4.0-11.0) Red Blood Count 2.87 x10^6/uL (3.50-5.40) Hemoglobin 9.8 g/dL (12.0-15.5) Hematocrit 29.3 % (36.0-47.0) Mean Corpuscular Volume 102 fL (79-100) Mean Corpuscular Hemoglobin 34 pg (25-35) Mean Corpuscular Hemoglobin Concent 33 g/dL (31-37) Red Cell Distribution Width 12.8 % (11.5-14.5) Platelet Count 256 x10^3/uL (140-400) Sodium Level 131 mmol/L (136-145) Potassium Level 2.9 mmol/L (3.5-5.1) Chloride Level 99 mmol/L (98-107) Carbon Dioxide Level 24 mmol/L (21-32) Anion Gap 8 (6-14) Blood Urea Nitrogen 21 mg/dL (7-20) Creatinine 0.7 mg/dL (0.6-1.0) Estimated GFR (Cockcroft-Gault) 83.0 BUN/Creatinine Ratio 30 (6-20) Glucose Level 116 mg/dL (70-99) Calcium Level 7.8 mg/dL (8.5-10.1) Total Bilirubin 1.6 mg/dL (0.2-1.0) Aspartate Amino Transf (AST/SGOT) 23 U/L (15-37) Alanine Aminotransferase (ALT/SGPT) 14 U/L (14-59) Alkaline Phosphatase 108 U/L (46-116) Total Protein 6.1 g/dL (6.4-8.2) Albumin 1.5 g/dL (3.4-5.0) Albumin/Globulin Ratio 0.3 (1.0-1.7) Assessment and Plan Assessmemt and Plan Problems Medical Problems: (1) Sepsis Status: Acute Comment Review of Relevant I have reviewed the following items chilo (where applicable) has been applied. Labs Laboratory Tests Test 01/04/21 12:07 01/04/21 12:45 01/04/21 14:45 01/05/21 08:45 Tumor Marker Alpha Fetoprotein 1.9 ng/mL (0.0-8.3) Coronavirus (PCR) Not detected (Not Detected) SARS-CoV-2 Antigen (Rapid) Negative (NEGATIVE) Ammonia < 10 mcmol/L (11-34) Body Fluid Source Ascites Body Fluid Color Yellow Body Fluid Clarity Hazy Body Fluid Nucleated Cells 1189 /cmm (Not Established) Body Fluid Mononuclear WBCs (%) 23 % Body Fluid Polymorphonuclear Cells 77 % Body Fluid Total RBCs Counted 433 /cmm (Not Established) Test 01/05/21 12:48 White Blood Count 11.1 x10^3/uL (4.0-11.0) Red Blood Count 2.87 x10^6/uL (3.50-5.40) Hemoglobin 9.8 g/dL (12.0-15.5) Hematocrit 29.3 % (36.0-47.0) Mean Corpuscular Volume 102 fL (79-100) Mean Corpuscular Hemoglobin 34 pg (25-35) Mean Corpuscular Hemoglobin Concent 33 g/dL (31-37) Red Cell Distribution Width 12.8 % (11.5-14.5) Platelet Count 256 x10^3/uL (140-400) Sodium Level 131 mmol/L (136-145) Potassium Level 2.9 mmol/L (3.5-5.1) Chloride Level 99 mmol/L (98-107) Carbon Dioxide Level 24 mmol/L (21-32) Anion Gap 8 (6-14) Blood Urea Nitrogen 21 mg/dL (7-20) Creatinine 0.7 mg/dL (0.6-1.0) Estimated GFR (Cockcroft-Gault) 83.0 BUN/Creatinine Ratio 30 (6-20) Glucose Level 116 mg/dL (70-99) Calcium Level 7.8 mg/dL (8.5-10.1) Total Bilirubin 1.6 mg/dL (0.2-1.0) Aspartate Amino Transf (AST/SGOT) 23 U/L (15-37) Alanine Aminotransferase (ALT/SGPT) 14 U/L (14-59) Alkaline Phosphatase 108 U/L (46-116) Total Protein 6.1 g/dL (6.4-8.2) Albumin 1.5 g/dL (3.4-5.0) Albumin/Globulin Ratio 0.3 (1.0-1.7) Laboratory Tests Test 01/05/21 12:48 White Blood Count 11.1 x10^3/uL (4.0-11.0) Red Blood Count 2.87 x10^6/uL (3.50-5.40) Hemoglobin 9.8 g/dL (12.0-15.5) Hematocrit 29.3 % (36.0-47.0) Mean Corpuscular Volume 102 fL (79-100) Mean Corpuscular Hemoglobin 34 pg (25-35) Mean Corpuscular Hemoglobin Concent 33 g/dL (31-37) Red Cell Distribution Width 12.8 % (11.5-14.5) Platelet Count 256 x10^3/uL (140-400) Sodium Level 131 mmol/L (136-145) Potassium Level 2.9 mmol/L (3.5-5.1) Chloride Level 99 mmol/L (98-107) Carbon Dioxide Level 24 mmol/L (21-32) Anion Gap 8 (6-14) Blood Urea Nitrogen 21 mg/dL (7-20) Creatinine 0.7 mg/dL (0.6-1.0) Estimated GFR (Cockcroft-Gault) 83.0 BUN/Creatinine Ratio 30 (6-20) Glucose Level 116 mg/dL (70-99) Calcium Level 7.8 mg/dL (8.5-10.1) Total Bilirubin 1.6 mg/dL (0.2-1.0) Aspartate Amino Transf (AST/SGOT) 23 U/L (15-37) Alanine Aminotransferase (ALT/SGPT) 14 U/L (14-59) Alkaline Phosphatase 108 U/L (46-116) Total Protein 6.1 g/dL (6.4-8.2) Albumin 1.5 g/dL (3.4-5.0) Albumin/Globulin Ratio 0.3 (1.0-1.7) Microbiology 01/03/21 Blood Culture - Final, Complete 01/03/21 Antimicrobic Susceptibility - Final, Complete Medications Current Medications Piperacillin Sod/ Tazobactam Sod 3.375 gm/Sodium Chloride 50 ml @ 100 mls/hr 1X ONCE IV Last administered on 01/03/21at 19:12; Start 01/03/21 at 18:45; Stop 01/03/21 at 19:14; Status DC Iohexol (Omnipaque 300 Mg/ml) 60 ml 1X ONCE IV Last administered on 01/03/21at 20:00; Start 01/03/21 at 20:00; Stop 01/03/21 at 20:01; Status DC Iohexol (Omnipaque 240 Mg/ml) 50 ml 1X ONCE PO Last administered on 01/03/21at 20:46; Start 01/03/21 at 20:45; Stop 01/03/21 at 20:46; Status DC Info (CONTRAST GIVEN -- Rx MONITORING) 1 each PRN DAILY PRN MC SEE COMMENTS; Start 01/03/21 at 20:45; Stop 01/05/21 at 20:44; Status DC Sodium Chloride 1,000 ml @ 1,000 mls/hr 1X ONCE IV Last administered on 01/03/21at 21:54; Start 01/03/21 at 21:45; Stop 01/03/21 at 22:44; Status DC Ibuprofen (Motrin) 400 mg PRN Q6HRS PRN PO INFLAMMATION; Start 01/04/21 at 00:45; Status Cancel Ondansetron HCl (Zofran) 4 mg PRN Q6HRS PRN IVP NAUSEA/VOMITING; Start 01/04/21 at 01:30 Al Hydroxide/Mg Hydroxide (Mylanta Plus Xs) 30 ml PRN Q3HRS PRN PO HEARTBURN / GAS; Start 01/04/21 at 01:30 Calcium Carbonate/ Glycine (Tums) 500 mg PRN Q3HRS PRN PO UPSET STOMACH; Start 01/04/21 at 01:30 Ibuprofen (Motrin) 400 mg PRN Q6HRS PRN PO INFLAMMATION Last administered on 01/06/21at 08:59; Start 01/04/21 at 01:30 Magnesium Hydroxide (Milk Of Magnesia) 2,400 mg PRN Q12HR PRN PO CONSTIPATION; Start 01/04/21 at 01:30 Bisacodyl (Dulcolax Supp) 10 mg PRN DAILY PRN [place] CONSTIPATION; Start 01/04/21 at 01:30 Heparin Sodium (Porcine) (Heparin Sodium) 5,000 unit Q12HR SQ Last administered on 01/06/21at 09:00; Start 01/04/21 at 09:00 Piperacillin Sod/ Tazobactam Sod (Zosyn Per Pharmacy) 1 each PRN DAILY PRN MC SEE COMMENTS; Start 01/04/21 at 09:00; Status Cancel Piperacillin Sod/ Tazobactam Sod 3.375 gm/Sodium Chloride 50 ml @ 100 mls/hr Q6H IV Last administered on 01/06/21at 09:00; Start 01/04/21 at 09:00; Stop 01/06/21 at 09:09; Status DC Sodium Chloride 1,000 ml @ 75 mls/hr [id number] IV Last administered on 01/04/21at 21:10; Start 01/04/21 at 12:00; Stop 01/05/21 at 13:56; Status DC Vancomycin HCl (Vanco Per Pharmacy) 1 each PRN DAILY PRN MC SEE COMMENTS Last administered on 01/05/21at 11:15; Start 01/04/21 at 14:45 Vancomycin HCl 1.25 gm/Sodium Chloride 250 ml @ 166.667 mls/hr 1X ONCE IV Last administered on 01/04/21at 15:58; Start 01/04/21 at 15:30; Stop 01/04/21 at 16:59; Status DC Vancomycin HCl 750 mg/Sodium Chloride 250 ml @ 250 mls/hr Q24H IV Last administered on 01/05/21at 17:49; Start 01/05/21 at 16:00 Vancomycin HCl (Vancomycin Trough Level) 1 each 1X ONCE MC ; Start 01/06/21 at 15:30; Stop 01/06/21 at 15:31 Lidocaine HCl (Buffered Lidocaine 1%) 3 ml STK-MED ONCE .ROUTE ; Start 01/05/21 at 07:43; Stop 01/05/21 at 07:43; Status DC Lidocaine HCl (Buffered Lidocaine 1%) 3 ml 1X ONCE IJ Last administered on 01/05/21at 08:50; Start 01/05/21 at 08:45; Stop 01/05/21 at 08:46; Status DC Lactobacillus Rhamnosus (Culturelle) 1 cap BID PO Last administered on 01/06/21at 08:58; Start 01/05/21 at 21:00 Vitamin B Complex (Folbic Tablet) 1 tab DAILY PO Last administered on 01/06/21at 08:58; Start 01/05/21 at 14:30 Cyanocobalamin (Vitamin B-12) 1,000 mcg 1X ONCE IM Last administered on 01/05/21at 14:36; Start 01/05/21 at 14:30; Stop 01/05/21 at 14:31; Status DC Potassium Chloride (Klor-Con) 20 meq [id number] PO Last administered on 01/06/21at 08:58; Start 01/06/21 at 08:00 Potassium Chloride (Klor-Con) 40 meq 1X ONCE PO Last administered on 01/05/21at 14:35; Start 01/05/21 at 14:30; Stop 01/05/21 at 14:31; Status DC Magnesium Sulfate 50 ml @ 25 mls/hr 1X ONCE IV Last administered on 01/05/21at 14:35; Start 01/05/21 at 15:00; Stop 01/05/21 at 16:59; Status DC Vitamin D (Vitamin D3) 5,000 unit DAILY PO Last administered on 01/06/21at 08:58; Start 01/05/21 at 14:30 Potassium Chloride (Klor-Con) 20 meq 1X ONCE PO Last administered on 01/05/21at 17:49; Start 01/05/21 at 18:00; Stop 01/05/21 at 18:01; Status DC Piperacillin Sod/ Tazobactam Sod (Zosyn Per Pharmacy) 1 each PRN DAILY PRN MC SEE COMMENTS; Start 01/06/21 at 09:15; Status UNV Active Scripts Active Reported Lasix (Furosemide) 20 Mg Tablet 20 Mg PO DAILY B Complex (Vitamin B Complex) 1 Each Tablet 1 Tab PO DAILY 30 Days Spironolactone 100 Mg Tablet 100 Mg PO DAILY Milk Thistle (Milk Thistle Seed Extract) 140 Mg Capsule 140 Mg PO DAILY Ibuprofen 400 Mg Tablet 400 Mg PO PRN Q6HRS PRN D3 + K2 Dots 1,000 Units Tab (Vitamin D3/Vitamin K2) 1 Each Tab.rapdis 1 Tab PO DAILY 30 Days Vitamin A 8,000 Unit Capsule 1 Cap PO DAILY 30 Days Vitals/I & O Vital Sign - Last 24 Hours 01/05/21 01/05/21 01/05/21 01/05/21 11:00 15:00 19:00 20:00 Temp 98.1 97.9 98.3 98.1 97.9 98.3 Pulse 100 98 121 Resp 16 16 18 B/P (MAP) 116/70 (85) 120/69 (86) 98/56 (70) Pulse Ox 94 95 95 O2 Delivery Room Air Room Air Room Air Room Air 01/05/21 01/05/21 01/05/21 01/06/21:19 20: 23:00 03:00 Temp 97.9 98.3 99.2 98.4 97.9 98.3 99.2 98.4 Pulse 98 121 99 111 Resp 18 18 18 B/P (MAP) 120/69 (86) 98/56 (70) 109/72 (84) 101/63 (76) Pulse Ox 95 95 97 94 O2 Delivery Room Air Room Air Room Air Room Air 01/06/21 07:00 Temp 98.4 98.4 Pulse 80 Resp 18 B/P (MAP) 99/63 (75) Pulse Ox 94 O2 Delivery Room Air Intake and Output 01/05/21 01/05/21 01/06/21 15:00 23:00 07:00 Output Total 4000 ml Balance -4000 ml Nutrition Consultation Dietary Evaluation: Recommendations by RD: Dietary education by RD, Increase Calorie Intake, Protein supplementation Comments: sending ensure with meals continue low Na ( Cardiac ) diet Expected Outcomes/Goals: to meet >75% est nutr needs Malnutrition Findings: Muscle Mass (Severe): Severe Depletion Weight Status: Underweight Fluid Accumulation (Severe): Severe Justicifation of Admission Dx: Justifications for Admission: Justification of Admission Dx: N/A JENNIFER ARREGUIN MD Jan 06, 2021 09:19
[2021-01-06 11:00] VITALS: BP 109/69
[2021-01-06] MEDS: FUROSEMIDE 20 MG TABLET PO SCH (11:47)
[2021-01-06] MEDS: SPIRONOLACTONE 25 MG TABLET PO SCH (11:47)
--- NOTE | 2021-01-06 13:06 | PDOC ---
Infectious Disease Note Vital Sign Vital Signs Vital Signs Date Time Temp Pulse Resp B/P (MAP) Pulse Ox O2 Delivery O2 Flow Rate FiO2 01/06/21 11:00 98.8 122 18 109/69 (82) 96 Room Air 98.8 Labs Lab Laboratory Tests Test 01/05/21 12:48 White Blood Count 11.1 x10^3/uL (4.0-11.0) Red Blood Count 2.87 x10^6/uL (3.50-5.40) Hemoglobin 9.8 g/dL (12.0-15.5) Hematocrit 29.3 % (36.0-47.0) Mean Corpuscular Volume 102 fL (79-100) Mean Corpuscular Hemoglobin 34 pg (25-35) Mean Corpuscular Hemoglobin Concent 33 g/dL (31-37) Red Cell Distribution Width 12.8 % (11.5-14.5) Platelet Count 256 x10^3/uL (140-400) Sodium Level 131 mmol/L (136-145) Potassium Level 2.9 mmol/L (3.5-5.1) Chloride Level 99 mmol/L (98-107) Carbon Dioxide Level 24 mmol/L (21-32) Anion Gap 8 (6-14) Blood Urea Nitrogen 21 mg/dL (7-20) Creatinine 0.7 mg/dL (0.6-1.0) Estimated GFR (Cockcroft-Gault) 83.0 BUN/Creatinine Ratio 30 (6-20) Glucose Level 116 mg/dL (70-99) Calcium Level 7.8 mg/dL (8.5-10.1) Total Bilirubin 1.6 mg/dL (0.2-1.0) Aspartate Amino Transf (AST/SGOT) 23 U/L (15-37) Alanine Aminotransferase (ALT/SGPT) 14 U/L (14-59) Alkaline Phosphatase 108 U/L (46-116) Total Protein 6.1 g/dL (6.4-8.2) Albumin 1.5 g/dL (3.4-5.0) Albumin/Globulin Ratio 0.3 (1.0-1.7) Micro Final GROWTH OF GRAM POSITIVE COCCI FINAL ID= [STAPHYLOCOCCUS AUREUS] STAPHYLOCOCCUS AUREUS ANTIMICROBIAL SUSCEPTIBILITY Final Comment POS ISSAC TYPE 38 STAPHYLOCOCCUS AUREUS ANTIBIOTIC RESULT INTERPRETATION AZITHROMYCIN <=2 S CLINDAMYCIN <=0.25 S CEFOXITIN SCREEN <=4 NEG CIPROFLOXACIN <=1 S CEFTAROLINE <=0.5 S DAPTOMYCIN <=0.5 S ERYTHROMYCIN <=0.25 S GENTAMICIN <=4 S LINEZOLID 2 S LEVOFLOXACIN <=1 S OXACILLIN <=0.25 S PENICILLIN >2 Hyun RIFAMPIN <=1 S TRIMETHOPRIM/SULFAMETHOXAZOLE <=0.5/9.5 S TETRACYCLINE <=4 S VANCOMYCIN 1 S Objective Assessment MSSA sepsis POA, 01/03. MSSA peritonitis from 12/05/20. Repeat paracentesis 01/05 no growth. Leukocytosis Alcoholic liver disease with ascites Umbilical hernia s/p repair Sep 2020. Wt loss Plan Plan of Care Hold PICC Repeat BC Echo Continue Zosyn for now Monitor lab values and temp Supportive care Thank you Likely Peritonitis with h/o MSSA in November and now bacteremia and 1100 + WBC in peritoneal fluid Narrow to Nafcillin. F/u Echo and repeat Blood cults Abd distended and likely will need repeat paracentesis Attending Co-Sign Attending Co-Sign The patient was seen and interviewed as well as examined at the bedside. The chart was reviewed. The case was discussed. Agree with the plan of care. BRYAN ROMAN APRN Jan 06, 2021 13:06 DANIEL GRAHAM MD Jan 06, 2021 17:55
[2021-01-06 13:41] LABS: CALCIUM 8.1 mg/dL (8.5-10.1); CREATININE 0.7 mg/dL (0.6-1.0); POTASSIUM 3.7 mmol/L (3.5-5.1)
[2021-01-06 15:00] VITALS: BP 113/72
[2021-01-06 19:00] VITALS: BP 99/71
--- NOTE | 2021-01-06 19:28 | CONS ---
DATE OF CONSULTATION: 01/06/2021 Ismael Fair, nurse practitioner dictating for Dr. Daniel Monae, Infectious Disease. REQUESTING PHYSICIAN: Dr. Hall. REASON FOR CONSULTATION: Methicillin-sensitive Staphylococcus aureus bacteremia. HISTORY OF PRESENT ILLNESS: This patient is a 70-year-old female who has a history of alcoholic liver disease with ascites, who was admitted from primary care office with abdominal distension, tachycardia and leukocytosis. A CT abdomen/pelvis revealed large abdominal and pelvic ascites and findings concerning for a small-bowel obstruction. She was started on vancomycin and Zosyn. She was evaluated by General Surgery with no surgical plans at this time. She underwent a paracentesis on the . Abdominal fluid analysis showed wbc's 1100 with no growth so far. Blood cultures are now positive for MSSA. The patient reports mild abdominal pain and increased distention. She underwent a paracentesis on 12/05/2020. Abdominal fluid analysis at that time showed wbc's greater than 2000 with growth of MSSA. She denies fevers or chills. Her appetite has been poor. She has been losing weight. Her stools have been loose. Denies nausea, vomiting or rash. She does not recall taking any antibiotics within the last month or so. PAST MEDICAL HISTORY: Alcohol liver disease with ascites, hypertension, depression, anxiety, anemia. PAST SURGICAL HISTORY: Umbilical hernia repair in 09/2020, tonsillectomy. FAMILY HISTORY: Noncontributory. SOCIAL HISTORY: She lives at home. She is a former smoker. History of heavy alcohol. ALLERGIES: No known drug allergies. MEDICATIONS: Zosyn. Previously on vancomycin. Lactulose. Other medications are available and have been reviewed on the JAN. REVIEW OF SYSTEMS: Per HPI, otherwise all other review of systems are negative. PHYSICAL EXAMINATION: VITAL SIGNS: Temperature 98.8, blood pressure 109/69, heart rate 122, respiratory rate 18, pulse oximetry 96 on room air. GENERAL: The patient is propped up in bed, alert, thin, in no distress. HEENT: Pupils equally round, normal conjunctivae, mild icterus. Oral cavity, pink. No lesions seen. NECK: Supple. LUNGS: Diminished aeration at the bases. No accessory muscle use. HEART: Normal S1, S2. No murmur appreciated. ABDOMEN: Distended, taut, mildly tender with bowel sounds present. Umbilical hernia noted. EXTREMITIES: No gross edema or cyanosis. SKIN: Warm to touch. No signs of rash. Peripheral IV looks okay. NEUROLOGIC: Alert, answering questions appropriately. LABORATORY DATA: WBC 11.1 from 14.3 on admission, hemoglobin 9.8, platelets 256,000. Sodium 132, potassium 3.7, creatinine 0.7, BUN 19, glucose 113. Lactic acid 1.7 from 3.3, total bilirubin 1.6, AST 23, ALT 14. Albumin 1.5. Procalcitonin 0.99. Urinalysis, few wbc's, nitrite, moderate bacteria. Blood cultures from 01/03/2021 showed Staphylococcus aureus, oxacillin sensitive, ascites yellow hazy with wbc's 1189 and no growth so far. Abdominal/pelvis CT per HPI. Chest x-ray showed low lung volumes with elevation of the right hemidiaphragm and linear bibasilar opacities, likely atelectasis; and possible small right pleural effusion. Abdominal ultrasound showed patent portal veins with normal directional flow, hepatic cirrhosis, moderate to large ascites. IMPRESSION: 1. Methicillin-sensitive Staphylococcus aureus sepsis from 01/03/2021. 2. Methicillin-sensitive Staphylococcus aureus peritonitis from 12/05/2020. Repeat paracentesis on 01/05/2021 also indicative peritonitis with 1100 wbc's. 3. Leukocytosis. 4. Alcoholic liver disease with ascites. 5. Umbilical hernia. 6. Weight loss. PLAN: 1. Dr. Monae recommends switching the Zosyn to nafcillin. 2. Obtain echocardiogram and repeat blood cultures. 3. hold PICC placement. 4. Monitor laboratory values and temperature. 5. Follow up culture results. 6. May need repeat paracentesis with increased abdominal distention. 7. Discussed with nursing. Thank you, Dr. Hall, for asking us to participate in this patient's care. Should you have further questions or concerns, please call. The patient is seen and examined and plan of care implemented by Dr. Daniel Monae. DANIEL MONAE MD DR: ALTAGRACIA/nelson JOB#: [id number] / [id number]
[2021-01-06] MEDS: NAFCILLIN 2 GM in IV DEXTROSE 5% 100ML 100 ML IV SCH ×2 (19:58→23:21)
[2021-01-06 23:00] VITALS: BP 119/70
[2021-01-07 03:00] VITALS: BP 113/67
[2021-01-07] MEDS: NAFCILLIN 2 GM in IV DEXTROSE 5% 100ML 100 ML IV SCH ×6 (03:59→23:51)
[2021-01-07 07:00] VITALS: BP 108/70
[2021-01-07] MEDS: POTASSIUM CHLORIDE 20 MEQ TABLET.ER. PO SCH (08:49)
[2021-01-07] MEDS: VITAMIN B12,B9,B6 COMPLEX 1 TABLET. PO SCH (08:49)
[2021-01-07] MEDS: FUROSEMIDE 20 MG TABLET PO SCH (08:49)
[2021-01-07] MEDS: CHOLECALCIFEROL (VITAMIN D3) 5,000 UNIT CAPSULE PO SCH (08:49)
[2021-01-07] MEDS: SPIRONOLACTONE 25 MG TABLET PO SCH (08:50)
[2021-01-07] MEDS: LACTOBACILLUS RHAMNOSUS GG 1 CAPSULE. PO SCH ×2 (08:51→20:17)
[2021-01-07] MEDS: HEPARIN for SUB-Q USE 5,000 UNIT/ML VIAL. SQ SCH ×2 (08:56→20:22)
--- NOTE | 2021-01-07 09:29 | PDOC ---
Infectious Disease Note Subjective Subjective Doing alright Denies increase abdominal distension or pain Loose stools, taking lactulose Denies fever or chills ROS ROS as mentioned above otherwise negative Vital Sign Vital Signs Vital Signs Date Time Temp Pulse Resp B/P (MAP) Pulse Ox O2 Delivery O2 Flow Rate FiO2 01/07/21 07:20 Room Air 01/07/21 07:00 98.0 103 16 108/70 (83) 93 98.0 Physical Exam PHYSICAL EXAM GENERAL: Propped up in bed, alert, thin, smiling HEENT: Pupils equally round, normal conjunctivae, mild icterus. Oral cavity, pink. No lesions seen. NECK: Supple. LUNGS: Diminished aeration at the bases. No accessory muscle use. HEART: Normal S1, S2. No murmur appreciated. ABDOMEN: Distended, taut, mildly tender with bowel sounds present. Umbilical hernia noted. EXTREMITIES: No gross edema or cyanosis. SKIN: Warm to touch. No signs of rash. NEUROLOGIC: Alert, answering questions appropriately. Peripheral IV looks okay. Labs Lab Laboratory Tests Test 01/06/21 13:10 Sodium Level 132 mmol/L (136-145) Potassium Level 3.7 mmol/L (3.5-5.1) Chloride Level 98 mmol/L (98-107) Carbon Dioxide Level 26 mmol/L (21-32) Anion Gap 8 (6-14) Blood Urea Nitrogen 19 mg/dL (7-20) Creatinine 0.7 mg/dL (0.6-1.0) Estimated GFR (Cockcroft-Gault) 83.0 Glucose Level 113 mg/dL (70-99) Calcium Level 8.1 mg/dL (8.5-10.1) Micro Final GROWTH OF GRAM POSITIVE COCCI FINAL ID= [STAPHYLOCOCCUS AUREUS] STAPHYLOCOCCUS AUREUS ANTIMICROBIAL SUSCEPTIBILITY Final Comment POS ISSAC TYPE 38 STAPHYLOCOCCUS AUREUS ANTIBIOTIC RESULT INTERPRETATION AZITHROMYCIN <=2 S CLINDAMYCIN <=0.25 S CEFOXITIN SCREEN <=4 NEG CIPROFLOXACIN <=1 S CEFTAROLINE <=0.5 S DAPTOMYCIN <=0.5 S ERYTHROMYCIN <=0.25 S GENTAMICIN <=4 S LINEZOLID 2 S LEVOFLOXACIN <=1 S OXACILLIN <=0.25 S PENICILLIN >2 Hyun RIFAMPIN <=1 S TRIMETHOPRIM/SULFAMETHOXAZOLE <=0.5/9.5 S TETRACYCLINE <=4 S VANCOMYCIN 1 S Abd fluid 2-19 ANAEROBIC-AEROBIC CULTURE Preliminary Preliminary No Growth on 01/06/21 at 0958 Objective Assessment MSSA sepsis from 01/03/2021. MSSA peritonitis from 12/05/2020. Repeat paracentesis on 01/05/2021 also indicative peritonitis with 1100 wbc's. Leukocytosis. Alcoholic liver disease with ascites. Umbilical hernia. Weight loss. Plan Plan of Care Continue Nafcillin Hold PICC Repeat BC 2-20 pending Awaiting Echo Monitor lab values and temp Supportive care May need repeat paracentesis with increased abdominal distention. Looking better today Attending Co-Sign Attending Co-Sign The patient was seen and interviewed as well as examined at the bedside. The chart was reviewed. The case was discussed. Agree with the plan of care. BRYAN ROMAN APRN Jan 07, 2021 09:29 DANIEL GRAHAM MD Jan 07, 2021 16:56
[2021-01-07 11:00] VITALS: BP 124/85
[2021-01-07] MEDS: IBUPROFEN 400 MG TABLET. PO PRN ×2 (11:54→18:56)
[2021-01-07 15:00] VITALS: BP 114/75
--- NOTE | 2021-01-07 15:18 | PDOC ---
PROGRESS NOTES Date of Service: DATE: 01/07/21 TIME: 15:17 Chief Complaint Chief Complaint sepsis UTI MSSA bacteremia, severe malnutrition, abd ascites, hepatic cirrhosis, liver disease from EtOH abuse for years. s/p paracentesis History of Present Illness History of Present Illness 01/07 ID consult following, narrowed abx to Nafcillin repeat cx pending echo ordered, May need PICC and IV abx, pt thinks she feels well for DC, need coordination for ID and the abx blood cx showed Gm pos cocci, yesterdaay, VANCOmycin dosed, now today, MSSA pos cult. panchal sens. will stop the vanc, order echo, consult ID, severe malntrition paracentesis yesterday, cont current, that cx is pending, the PMN count is < 250, not likely SBP, risk of secondary staph infection is high Vitals Vitals Vital Signs Date Time Temp Pulse Resp B/P (MAP) Pulse Ox O2 Delivery O2 Flow Rate FiO2 01/07/21 11:00 98.4 120 16 124/85 (98) 94 Room Air 98.4 Physical Exam Physical Exam GENERAL: Propped up in bed, alert, thin, smiling HEENT: Pupils equally round, normal conjunctivae, mild icterus. Oral cavity, pink. No lesions seen. NECK: Supple. LUNGS: Diminished aeration at the bases. No accessory muscle use. HEART: Normal S1, S2. No murmur appreciated. ABDOMEN: Distended, taut, mildly tender with bowel sounds present. Umbilical hernia noted. EXTREMITIES: No gross edema or cyanosis. SKIN: Warm to touch. No signs of rash. NEUROLOGIC: Alert, answering questions appropriately. Peripheral IV looks okay. General: Alert, Oriented X3, Cooperative Heart: Regular rate, Other (tachy) Lungs: Clear Abdomen: Soft, Other (Nontender, hernia reducible, ascites noted ) Extremities: No cyanosis Skin: No rashes, No breakdown Assessment and Plan Assessmemt and Plan Problems Medical Problems: (1) Sepsis Status: Acute Comment Review of Relevant I have reviewed the following items chilo (where applicable) has been applied. Labs Laboratory Tests Test 01/06/21 13:10 Sodium Level 132 mmol/L (136-145) Potassium Level 3.7 mmol/L (3.5-5.1) Chloride Level 98 mmol/L (98-107) Carbon Dioxide Level 26 mmol/L (21-32) Anion Gap 8 (6-14) Blood Urea Nitrogen 19 mg/dL (7-20) Creatinine 0.7 mg/dL (0.6-1.0) Estimated GFR (Cockcroft-Gault) 83.0 Glucose Level 113 mg/dL (70-99) Calcium Level 8.1 mg/dL (8.5-10.1) Microbiology 01/06/21 Blood Culture - Preliminary, Resulted NO GROWTH AFTER 1 DAY 01/05/21 Gram Stain - Final, Resulted 01/05/21 Aerobic and Anaerobic Culture - Preliminary, Resulted Medications Current Medications Piperacillin Sod/ Tazobactam Sod 3.375 gm/Sodium Chloride 50 ml @ 100 mls/hr 1X ONCE IV Last administered on 01/03/21at 19:12; Start 01/03/21 at 18:45; Stop 01/03/21 at 19:14; Status DC Iohexol (Omnipaque 300 Mg/ml) 60 ml 1X ONCE IV Last administered on 01/03/21at 20:00; Start 01/03/21 at 20:00; Stop 01/03/21 at 20:01; Status DC Iohexol (Omnipaque 240 Mg/ml) 50 ml 1X ONCE PO Last administered on 01/03/21at 20:46; Start 01/03/21 at 20:45; Stop 01/03/21 at 20:46; Status DC Info (CONTRAST GIVEN -- Rx MONITORING) 1 each PRN DAILY PRN MC SEE COMMENTS; Start 01/03/21 at 20:45; Stop 01/05/21 at 20:44; Status DC Sodium Chloride 1,000 ml @ 1,000 mls/hr 1X ONCE IV Last administered on 01/03/21at 21:54; Start 01/03/21 at 21:45; Stop 01/03/21 at 22:44; Status DC Ibuprofen (Motrin) 400 mg PRN Q6HRS PRN PO INFLAMMATION; Start 01/04/21 at 00:45; Status Cancel Ondansetron HCl (Zofran) 4 mg PRN Q6HRS PRN IVP NAUSEA/VOMITING; Start 01/04/21 at 01:30 Al Hydroxide/Mg Hydroxide (Mylanta Plus Xs) 30 ml PRN Q3HRS PRN PO HEARTBURN / GAS; Start 01/04/21 at 01:30 Calcium Carbonate/ Glycine (Tums) 500 mg PRN Q3HRS PRN PO UPSET STOMACH; Start 01/04/21 at 01:30 Ibuprofen (Motrin) 400 mg PRN Q6HRS PRN PO INFLAMMATION Last administered on 01/07/21at 11:54; Start 01/04/21 at 01:30 Magnesium Hydroxide (Milk Of Magnesia) 2,400 mg PRN Q12HR PRN PO CONSTIPATION; Start 01/04/21 at 01:30 Bisacodyl (Dulcolax Supp) 10 mg PRN DAILY PRN NE CONSTIPATION; Start 01/04/21 at 01:30 Heparin Sodium (Porcine) (Heparin Sodium) 5,000 unit Q12HR SQ Last administered on 01/07/21at 08:56; Start 01/04/21 at 09:00 Piperacillin Sod/ Tazobactam Sod (Zosyn Per Pharmacy) 1 each PRN DAILY PRN MC SEE COMMENTS; Start 01/04/21 at 09:00; Status Cancel Piperacillin Sod/ Tazobactam Sod 3.375 gm/Sodium Chloride 50 ml @ 100 mls/hr Q6H IV Last administered on 01/06/21at 09:00; Start 01/04/21 at 09:00; Stop 01/06/21 at 09:09; Status DC Sodium Chloride 1,000 ml @ 75 mls/hr [id number] IV Last administered on 01/04/21at 21:10; Start 01/04/21 at 12:00; Stop 01/05/21 at 13:56; Status DC Vancomycin HCl (Vanco Per Pharmacy) 1 each PRN DAILY PRN MC SEE COMMENTS Last administered on 01/05/21at 11:15; Start 01/04/21 at 14:45; Stop 01/06/21 at 09:17; Status DC Vancomycin HCl 1.25 gm/Sodium Chloride 250 ml @ 166.667 mls/hr 1X ONCE IV Last administered on 01/04/21at 15:58; Start 01/04/21 at 15:30; Stop 01/04/21 at 16:59; Status DC Vancomycin HCl 750 mg/Sodium Chloride 250 ml @ 250 mls/hr Q24H IV Last administered on 01/05/21at 17:49; Start 01/05/21 at 16:00; Stop 01/06/21 at 09:15; Status DC Vancomycin HCl (Vancomycin Trough Level) 1 each 1X ONCE MC ; Start 01/06/21 at 15:30; Stop 01/06/21 at 09:17; Status DC Lidocaine HCl (Buffered Lidocaine 1%) 3 ml STK-MED ONCE .ROUTE ; Start 01/05/21 at 07:43; Stop 01/05/21 at 07:43; Status DC Lidocaine HCl (Buffered Lidocaine 1%) 3 ml 1X ONCE IJ Last administered on 01/05/21at 08:50; Start 01/05/21 at 08:45; Stop 01/05/21 at 08:46; Status DC Lactobacillus Rhamnosus (Culturelle) 1 cap BID PO Last administered on 01/07/21at 08:51; Start 01/05/21 at 21:00 Vitamin B Complex (Folbic Tablet) 1 tab DAILY PO Last administered on 01/07/21at 08:49; Start 01/05/21 at 14:30 Cyanocobalamin (Vitamin B-12) 1,000 mcg 1X ONCE IM Last administered on 01/05/21at 14:36; Start 01/05/21 at 14:30; Stop 01/05/21 at 14:31; Status DC Potassium Chloride (Klor-Con) 20 meq [id number] PO Last administered on 01/07/21at 08:49; Start 01/06/21 at 08:00 Potassium Chloride (Klor-Con) 40 meq 1X ONCE PO Last administered on 01/05/21at 14:35; Start 01/05/21 at 14:30; Stop 01/05/21 at 14:31; Status DC Magnesium Sulfate 50 ml @ 25 mls/hr 1X ONCE IV Last administered on 01/05/21at 14:35; Start 01/05/21 at 15:00; Stop 01/05/21 at 16:59; Status DC Vitamin D (Vitamin D3) 5,000 unit DAILY PO Last administered on 01/07/21at 08:49; Start 01/05/21 at 14:30 Potassium Chloride (Klor-Con) 20 meq 1X ONCE PO Last administered on 01/05/21at 17:49; Start 01/05/21 at 18:00; Stop 01/05/21 at 18:01; Status DC Piperacillin Sod/ Tazobactam Sod (Zosyn Per Pharmacy) 1 each PRN DAILY PRN MC SEE COMMENTS; Start 01/06/21 at 09:15; Stop 01/06/21 at 17:55; Status DC Piperacillin Sod/ Tazobactam Sod 3.375 gm/Sodium Chloride 50 ml @ 100 mls/hr Q6HRS IV Last administered on 01/06/21at 17:43; Start 01/06/21 at 12:00; Stop 01/06/21 at 17:55; Status DC Furosemide (Lasix) 20 mg DAILY PO Last administered on 01/07/21at 08:49; Start 01/06/21 at 10:30 Spironolactone (Aldactone) 100 mg DAILY PO Last administered on 01/07/21at 08: 50; Start 01/06/21 at 10:30 Nafcillin Sodium 2 gm/Dextrose 100 ml @ 200 mls/hr Q4HRS IV Last administered on 01/07/21at 11:52; Start 01/06/21 at 20:00 Active Scripts Active Reported Lasix (Furosemide) 20 Mg Tablet 20 Mg PO DAILY B Complex (Vitamin B Complex) 1 Each Tablet 1 Tab PO DAILY 30 Days Spironolactone 100 Mg Tablet 100 Mg PO DAILY Milk Thistle (Milk Thistle Seed Extract) 140 Mg Capsule 140 Mg PO DAILY Ibuprofen 400 Mg Tablet 400 Mg PO PRN Q6HRS PRN D3 + K2 Dots 1,000 Units Tab (Vitamin D3/Vitamin K2) 1 Each Tab.rapdis 1 Tab PO DAILY 30 Days Vitamin A 8,000 Unit Capsule 1 Cap PO DAILY 30 Days Vitals/I & O Vital Sign - Last 24 Hours 01/06/21 01/06/21 01/06/21 01/07/21 19:00 20:00 23:00 03:00 Temp 98.4 98.4 97.8 98.4 98.4 97.8 Pulse 106 108 93 Resp 18 18 18 B/P (MAP) 99/71 (80) 119/70 (86) 113/67 (82) Pulse Ox 96 94 95 O2 Delivery Room Air Room Air Room Air Room Air 01/07/21 01/07/21 01/07/21 07:00 07:20 11:00 Temp 98.0 98.4 98.0 98.4 Pulse 103 120 Resp 16 16 B/P (MAP) 108/70 (83) 124/85 (98) Pulse Ox 93 94 O2 Delivery Room Air Room Air Room Air Intake and Output 01/06/21 01/06/21 01/07/21 15:00 23:00 07:00 Intake Total 950 ml Balance 950 ml Nutrition Consultation Dietary Evaluation: Recommendations by RD: Dietary education by RD, Increase Calorie Intake, Protein supplementation Comments: sending ensure with meals continue low Na ( Cardiac ) diet Expected Outcomes/Goals: to meet >75% est nutr needs Malnutrition Findings: Muscle Mass (Severe): Severe Depletion Weight Status: Underweight Fluid Accumulation (Severe): Severe Justicifation of Admission Dx: Justifications for Admission: Justification of Admission Dx: N/A JENNIFER ARREGUIN MD Jan 07, 2021 15:18
[2021-01-07 19:00] VITALS: BP 86/49
[2021-01-07 23:00] VITALS: BP 103/59
[2021-01-08 03:00] VITALS: BP 98/52
[2021-01-08] MEDS: NAFCILLIN 2 GM in IV DEXTROSE 5% 100ML 100 ML IV SCH ×5 (03:14→19:55)
[2021-01-08] MEDS: IBUPROFEN 400 MG TABLET. PO PRN ×2 (05:59→19:56)
[2021-01-08 07:00] VITALS: BP 106/62
--- NOTE | 2021-01-08 08:58 | PDOC ---
Infectious Disease Note Subjective: Subjective Pt complaints of increase in abdominal distension and abdominal discomfort Loose stools, taking lactulose Denies fever or chills Vital Signs: Vital Signs Vital Signs Date Time Temp Pulse Resp B/P (MAP) Pulse Ox O2 Delivery O2 Flow Rate FiO2 01/08/21 07:00 97.9 96 18 106/62 (77) 95 Room Air 97.9 Physical Exam: PHYSICAL EXAM GENERAL: alert, thin, smiling HEENT: Pupils equally round, normal conjunctivae, mild icterus. Oral cavity, pink. No lesions seen. NECK: Supple. LUNGS: Diminished aeration at the bases. No accessory muscle use. HEART: Normal S1, S2. No murmur appreciated. ABDOMEN: Distended, taut, mildly tender with bowel sounds present. Umbilical hernia noted. EXTREMITIES: No gross edema or cyanosis. SKIN: Warm to touch. No signs of rash. NEUROLOGIC: Alert, answering questions appropriately. Peripheral IV looks okay. Medications: Inpatient Meds: Medications reviewed. Labs: Micro Micro Final GROWTH OF GRAM POSITIVE COCCI FINAL ID= [STAPHYLOCOCCUS AUREUS] STAPHYLOCOCCUS AUREUS ANTIMICROBIAL SUSCEPTIBILITY Final Comment POS ISSAC TYPE 38 STAPHYLOCOCCUS AUREUS ANTIBIOTIC RESULT INTERPRETATION AZITHROMYCIN <=2 S CLINDAMYCIN <=0.25 S CEFOXITIN SCREEN <=4 NEG CIPROFLOXACIN <=1 S CEFTAROLINE <=0.5 S DAPTOMYCIN <=0.5 S ERYTHROMYCIN <=0.25 S GENTAMICIN <=4 S LINEZOLID 2 S LEVOFLOXACIN <=1 S OXACILLIN <=0.25 S PENICILLIN >2 Hyun RIFAMPIN <=1 S TRIMETHOPRIM/SULFAMETHOXAZOLE <=0.5/9.5 S TETRACYCLINE <=4 S VANCOMYCIN 1 S Abd fluid 01-05 ANAEROBIC-AEROBIC CULTURE Preliminary Preliminary No Growth on 01/06/21 at 0958 Objective: Assessment: MSSA sepsis from 01/03/2021. MSSA peritonitis from 12/05/2020. Repeat paracentesis on 01/05/2021 also indicative peritonitis with 1100 wbc's. -Cult neg so far Leukocytosis. Alcoholic liver disease with recurrent ascites. Umbilical hernia. Weight loss. Coagulopathy Hyponatremia, Abd wall hernia containing SB COVID negative 01/04 Plan: Plan of Care Continue Nafcillin Hold PICC Repeat BC 01/06 neg so far F/U Echo results May need repeat paracentesis with increased abdominal distention. Monitor lab values and temp Supportive care CJ HUMPHRIES MD Jan 08, 2021 08:58
--- NOTE | 2021-01-08 09:21 | NUR ---
SW following. Discussed with RN, pt from home with brother, room air, cardiac diet, gets around jazmín, COVID-19 negative. Pt on IV abx q4. RN does not anticipate pt will need custodial IV abx. MARY will continue to follow. Addendum: 01/08/21 at 1505 by YU HERNANDEZ RN notified MARY of pt's brother, Lan wanting to speak to SW about hospice. RN reported pt and family spoke with Dr. Rodas at length today RE hospice. MARY spoke with Lan, he would like a nurse but is not sure about hospice because pt is apparently a candidate for a transplant surgery, and they do not want her to lose her place on the list if she goes on hospice. MARY explained about home health, Lan agreeable to speak with Fabricio Herrera RN to discuss further. MARY notified Fabricio Herrera RN. MARY will continue to follow.
[2021-01-08] MEDS: CHOLECALCIFEROL (VITAMIN D3) 5,000 UNIT CAPSULE PO SCH (10:03)
[2021-01-08] MEDS: LACTOBACILLUS RHAMNOSUS GG 1 CAPSULE. PO SCH ×2 (10:03→19:55)
[2021-01-08] MEDS: VITAMIN B12,B9,B6 COMPLEX 1 TABLET. PO SCH (10:03)
[2021-01-08] MEDS: POTASSIUM CHLORIDE 20 MEQ TABLET.ER. PO SCH (10:03)
[2021-01-08] MEDS: FUROSEMIDE 20 MG TABLET PO SCH (10:04)
[2021-01-08] MEDS: SPIRONOLACTONE 25 MG TABLET PO SCH (10:04)
--- NOTE | 2021-01-08 10:09 | PDOC ---
Date of Service: DATE: 01/08/21 TIME: 10:00 Objective: Objective: D/w nurse - possibly not caring for self appropriately at home (lives w/ brother). On Lasix and Aldactone, also DERRICK diet. Vital Signs: Vital Signs Date Time Temp Pulse Resp B/P (MAP) Pulse Ox O2 Delivery O2 Flow Rate FiO2 01/08/21 07:00 97.9 96 18 106/62 (77) 95 Room Air 97.9 Labs: GRAM STAIN Final Final NO ORGANISMS SEEN. SQUAMOUS EPI CELL:NOT APPLICABLE PMN (WBCs):RARE ANAEROBIC-AEROBIC CULTURE Preliminary Preliminary No Growth on 01/06/21 at 0958 No Growth on 01/07/21 at 1038 BLOOD CULTURE LC Final Final GROWTH OF GRAM POSITIVE COCCI FINAL ID= [STAPHYLOCOCCUS AUREUS] STAPHYLOCOCCUS AUREUS BLOOD CULTURE Preliminary NO GROWTH AFTER 1 DAY Imaging: Echo 01/08 pending PE: out of room A/P: MSSA bacteremia, UTI, ?peritonitis - ID following Cirrhosis (suspect alcohol - sober since MARIA EUGENIA- viral Hep neg), recurrent ascites s/p paracentesis 01/05 (4L) - patent PV on doppler 01/04 ACD, macrocytosis w/ low-normal B12, mild coagulopathy, mild hyperbilirubinemia Abd wall hernia containing SB - no surgery plans COVID negative 01/04 -- Out of room for echo - will follow-up later. Justicifation of Admission Dx: Justifications for Admission: Justification of Admission Dx: N/A KATHIE CLEMENTS Jan 08, 2021 10:09
[2021-01-08] MEDS: HEPARIN for SUB-Q USE 5,000 UNIT/ML VIAL. SQ SCH ×2 (10:13→21:00)
[2021-01-08 11:00] VITALS: BP 102/50
--- NOTE | 2021-01-08 13:54 | CARD ---
MR#: [id number] Date of Study: 01/08/2021 Ordering Physician: JENNIFER ARREGUIN, Referring Physician: JENNIFER ARREGUIN, Tech: Milagro Ervin [facility] APPROVED REPORT EXAM: Two-dimensional and M-mode echocardiogram with Doppler and color Doppler. Other Information Quality : GoodHR: 91bpm INDICATION MRSA, Sepsis 2D DIMENSIONS RVDd3.4 (2.9-3.5cm)Left Atrium(2D)3.9 (1.6-4.0cm) IVSd1.0 (0.7-1.1cm)Aortic Root(2D)3.2 (2.0-3.7cm) LVDd4.3 (3.9-5.9cm)LVOT Diameter2.0 (1.8-2.4cm) PWd0.9 (0.7-1.1cm)LVDs2.3 (2.5-4.0cm) FS (%) 32.0 %SV27.8 ml LVEF(%)61.3 (>50%) Aortic Valve AoV Peak Alex.101.5cm/sAoV VTI17.9cm AO Peak GR.4.1mmHgLVOT Peak Alex.82.9cm/s LVOT VTI 14.78cmAO Mean GR.2mmHg SRAVANTHI (VMAX)2.29ei4EQY (VTI)2.61cm2 Mitral Valve MV E Scdyzplt86.2cm/sMV E Peak Gr.100mmHg MV DECEL [id number] A Pdoxwcuu39.1cm/s MV LQJ16leN/A Ratio0.9 MVA (PHT)4.72cm2 TDI E/Lateral E'4.8E/Medial E'7.5 Pulmonary Valve PV Peak Dggadzui42.1cm/sPV Peak Grad.3mmHg Tricuspid Valve TR P. Tdanqcye812bn/sRAP FUVIWFKK6qrTr TR Peak Gr.81axHeJIZC16mcGm Pulmonary Vein S1 Hyxlozex58.0cm/sD2 Ifvmopzd72.8cm/s PVa vlhmqjyb52rtqf LEFT VENTRICLE The left ventricle is normal size. There is borderline to mild concentric left ventricular hypertroph y. The left ventricular systolic function is normal and the ejection fraction is within normal range. The Ejection Fraction is 55%. There is normal LV segmental wall motion. Transmitral Doppler flow pat tern is Grade I-abnormal relaxation pattern. RIGHT VENTRICLE The right ventricle is normal size. There is normal right ventricular wall thickness. The right ventr icular systolic function is normal. ATRIA The left atrium size is normal. The right atrium size is normal. The interatrial septum is intact wit h no evidence for an atrial septal defect or patent foramen ovale as noted on 2-D or Doppler imaging. AORTIC VALVE The aortic valve is normal in structure and function. Doppler and Color Flow revealed no significant aortic regurgitation. There is no significant aortic valvular stenosis. Calculated aortic valve area is 2.67 cm2 with maximum pressure gradient of 5 mmHg and mean pressure gradient of 3 mmHg. MITRAL VALVE The mitral valve is mildly thickened. The mitral valve appears thickened but no clear vegetation note d. There is no evidence of mitral valve prolapse. There is no mitral valve stenosis. Doppler and [place] r-flow revealed mild mitral regurgitation. TRICUSPID VALVE The tricuspid valve is normal in structure and function. Doppler and Color Flow revealed trace tricus pid regurgitation with an estimated PAP of 32 mmHg. There is no tricuspid valve stenosis. PULMONIC VALVE Doppler and Color Flow revealed no pulmonic valvular regurgitation. There is no pulmonic valvular henry nosis. GREAT VESSELS The aortic root is normal in size. The ascending aorta is normal in size. The IVC is normal in size a nd collapses >50% with inspiration. PERICARDIAL EFFUSION There is no evidence of significant pericardial effusion. Critical Notification Critical Value: No <Conclusion> The left ventricular systolic function is normal and the ejection fraction is within normal range. Th e Ejection Fraction is 55%. There is normal LV segmental wall motion. The mitral valve is mildly thickened. The mitral valve appears thickened but no clear vegetation note d. Signed by : Lloyd Lux, Electronically Approved : 01/08/2021 13:53:44
--- NOTE | 2021-01-08 14:00 | PDOC ---
[employer] PROGRESS NOTE Date of Service DOS: DATE: 01/08/21 TIME: 13:55 Chief Complaint Chief Complaint sepsis UTI MSSA bacteremia, severe malnutrition, abd ascites, hepatic cirrhosis, liver disease from EtOH abuse for years, MELD 18 s/p paracentesis History of Present Illness History of Present Illness 01/08/2021 No acute events overnight. Patient seen and examined bedside. Patient did have an episode of vomiting that required IV antiemetics. Patient's abdominal distention also worsening. Will defer to GI for possible repeat paracentesis before discharge. Advance care planning: A total time of > 17 minutes was spent from 1130 to 1150 face to face in discussion with the patient and family regarding their goals of care, transplantation, hospice. As of now, there is no final decision of whether the patient wants to go through transplant evaluation or hospice care. Detailed instructions and goals were discussed with the brother and sister regarding strict I's and O's, daily weights, low-sodium diet and fluid restr iction. Patient will also need to consider being on diuretics and repeat routine paracentesis until a definitive transplant plan can be laid out for them. They have been following with associate director of sales Dr. Crystal at [facility] in the past but was lost to follow-up mainly because the patient relapsed into drinking alcohol again. According to the brother the patient has been sober for the last 2 months and felt that it would be a good time to reconsider the transplant route. 01/07 ID consult following, narrowed abx to Nafcillin repeat cx pending echo ordered, May need PICC and IV abx, pt thinks she feels well for DC, need coordination for ID and the abx blood cx showed Gm pos cocci, yesterdaay, VANCOmycin dosed, now today, MSSA pos cult. panchal sens. will stop the vanc, order echo, consult ID, severe malntrition paracentesis yesterday, cont current, that cx is pending, the PMN count is < 250, not likely SBP, risk of secondary staph infection is high Vitals/I&O Vitals/I&O: Vital Signs Date Time Temp Pulse Resp B/P (MAP) Pulse Ox O2 Delivery O2 Flow Rate FiO2 01/08/21 11:00 98.2 91 18 102/50 (67) 95 Room Air 98.2 I & O 01/07/21 01/07/21 01/08/21 15:00 23:00 07:00 Intake Total 600 ml Balance 600 ml Physical Exam Physical Exam: GENERAL: alert, thin, smiling HEENT: Pupils equally round, normal conjunctivae, mild icterus. Oral cavity, pink. No lesions seen. NECK: Supple. LUNGS: Diminished aeration at the bases. No accessory muscle use. HEART: Normal S1, S2. No murmur appreciated. ABDOMEN: Distended, taut, mildly tender with bowel sounds present. Umbilical hernia noted. EXTREMITIES: No gross edema or cyanosis. SKIN: Warm to touch. No signs of rash. NEUROLOGIC: Alert, answering questions appropriately. Peripheral IV looks okay. General: Alert, Oriented X3, Cooperative Heart: Regular rate, Other (tachy) Lungs: Clear Abdomen: Soft, Other (Nontender, hernia reducible, ascites noted ) Extremities: No cyanosis Skin: No rashes, No breakdown Assessment and Plan Assessmemt and Plan Problems Medical Problems: (1) Sepsis Status: Acute Comment Review of Relevant I have reviewed the following items chilo (where applicable) has been applied. Justifications for Admission Other Justification Cirrhosis, abdominal ascites, UTI ANNA VELASQUEZ MD Jan 08, 2021 14:00
[2021-01-08 15:00] VITALS: BP 118/64
[2021-01-08] MEDS: PANTOPRAZOLE IV PUSH 40 MG VIAL. IVP SCH (16:21)
[2021-01-08 19:51] VITALS: BP 111/71
--- NOTE | 2021-01-08 21:00 | NUR ---
Non-administered Heparin d/t pt have a procedure 01/09.
[2021-01-08 23:08] VITALS: BP 95/57
[2021-01-09] VITALS (9 sets, daily range): BP systolic 100–144; BP diastolic 52–73
[2021-01-09] MEDS: NAFCILLIN 2 GM in IV DEXTROSE 5% 100ML 100 ML IV SCH ×6 (00:07→20:16)
[2021-01-09] MEDS: PANTOPRAZOLE IV PUSH 40 MG VIAL. IVP SCH (06:15)
[2021-01-09 07:11] LABS: HEMATOCRIT 30.7 % (36.0-47.0); HEMOGLOBIN 10.6 g/dL (12.0-15.5)
[2021-01-09] MEDS: POTASSIUM CHLORIDE 20 MEQ TABLET.ER. PO SCH ×2 (08:00→09:29)
[2021-01-09 08:21] LABS: PROTHROMBIN TIME PATIENT 16.4 SEC (11.7-14.0)
[2021-01-09] MEDS: FUROSEMIDE 20 MG TABLET PO SCH ×2 (09:00→09:29)
[2021-01-09] MEDS: SPIRONOLACTONE 25 MG TABLET PO SCH ×2 (09:00→09:30)
[2021-01-09] MEDS: HEPARIN for SUB-Q USE 5,000 UNIT/ML VIAL. SQ SCH ×2 (09:00→20:18)
--- NOTE | 2021-01-09 09:00 | PDOC ---
Infectious Disease Note Subjective: Subjective Pt complaints of increase in abdominal distension and abdominal discomfort Loose bm though slowed down as she did not take the lactulose Denies fever or chills Vital Signs: Vital Signs Vital Signs Date Time Temp Pulse Resp B/P (MAP) Pulse Ox O2 Delivery O2 Flow Rate FiO2 01/09/21 08:21 Room Air 01/09/21 07:00 99.6 95 18 109/65 (80) 92 99.6 Physical Exam: PHYSICAL EXAM GENERAL: alert, thin, smiling HEENT: Pupils equally round, normal conjunctivae, mild icterus. Oral cavity, pink. No lesions seen. NECK: Supple. LUNGS: Diminished aeration at the bases. No accessory muscle use. HEART: Normal S1, S2. No murmur appreciated. ABDOMEN: Distended, taut, mildly tender with bowel sounds present. Umbilical hernia noted. EXTREMITIES: No gross edema or cyanosis. SKIN: Warm to touch. No signs of rash. NEUROLOGIC: Alert, answering questions appropriately. Peripheral IV looks okay. Medications: Inpatient Meds: Medications reviewed. Labs: Lab Laboratory Tests Test 01/09/21 06:25 Hemoglobin 10.6 g/dL (12.0-15.5) Hematocrit 30.7 % (36.0-47.0) Mean Corpuscular Hemoglobin Concent 34 g/dL (31-37) Prothrombin Time 16.4 SEC (11.7-14.0) Prothromb Time International Ratio 1.4 (0.8-1.1) Micro Micro Final GROWTH OF GRAM POSITIVE COCCI FINAL ID= [STAPHYLOCOCCUS AUREUS] STAPHYLOCOCCUS AUREUS ANTIMICROBIAL SUSCEPTIBILITY Final Comment POS ISSAC TYPE 38 STAPHYLOCOCCUS AUREUS ANTIBIOTIC RESULT INTERPRETATION AZITHROMYCIN <=2 S CLINDAMYCIN <=0.25 S CEFOXITIN SCREEN <=4 NEG CIPROFLOXACIN <=1 S CEFTAROLINE <=0.5 S DAPTOMYCIN <=0.5 S ERYTHROMYCIN <=0.25 S GENTAMICIN <=4 S LINEZOLID 2 S LEVOFLOXACIN <=1 S OXACILLIN <=0.25 S PENICILLIN >2 Hyun RIFAMPIN <=1 S TRIMETHOPRIM/SULFAMETHOXAZOLE <=0.5/9.5 S TETRACYCLINE <=4 S VANCOMYCIN 1 S Abd fluid 2-19 ANAEROBIC-AEROBIC CULTURE Preliminary Preliminary No Growth on 01/06/21 at 0958 2 d echo The left ventricular systolic function is normal and the ejection fraction is within normal range. The Ejection Fraction is 55%. There is normal LV segmental wall motion. The mitral valve is mildly thickened. The mitral valve appears thickened but no clear vegetation noted. If there is high clinical suspicion for endocarditis, consider DESTIN. Objective: Assessment: MSSA sepsis from 01/03/2021. MSSA peritonitis from 12/05/2020. Repeat paracentesis on 01/05/2021 also indicative peritonitis with 1100 wbc's. -Cult neg so far Leukocytosis. Alcoholic liver disease with recurrent ascites. Umbilical hernia. Weight loss. Coagulopathy Hyponatremia, Abd wall hernia containing SB COVID negative 01/04 Plan: Plan of Care Continue Nafcillin Hold PICC for today Repeat BC 01/06 neg so far Echo results noted will order DESTIN Awaiting repeat paracentesis with increased abdominal distention. Monitor lab values and temp Supportive care CJ HUMPHRIES MD Jan 09, 2021 09:00
--- NOTE | 2021-01-09 09:22 | NUR ---
SW following. Discussed with RN, pt from home with brother, room air, cardiac diet, COVID-19 negative. Pt having a paracentesis today. [facility] RN met with pt and pt family yesterday - pt and family are on the fence about having home health upon discharge. Per [facility] RN, pt is hospice appropriate but [facility] can accept for home health services. SW will continue to follow.
[2021-01-09 09:29] LABS: CREATININE 3.2 mg/dL (0.6-1.0); GFR 14.4; MAGNESIUM 2.4 mg/dL (1.8-2.4)
[2021-01-09] MEDS: CHOLECALCIFEROL (VITAMIN D3) 5,000 UNIT CAPSULE PO SCH (09:29)
[2021-01-09] MEDS: VITAMIN B12,B9,B6 COMPLEX 1 TABLET. PO SCH (09:29)
[2021-01-09] MEDS: LACTOBACILLUS RHAMNOSUS GG 1 CAPSULE. PO SCH ×2 (09:29→20:15)
[2021-01-09 09:32] LABS: POTASSIUM 6.1 mmol/L (3.5-5.1)
[2021-01-09] MEDS ORDERED: SODIUM POLYSTYRENE SULFON/SORB 15 GM/60 ML ORAL.SUSP. PO ONE ×2 (09:45→18:00)
--- NOTE | 2021-01-09 10:26 | PDOC ---
Date of Service: DATE: 01/09/21 TIME: 10:13 Subjective: Subjective: No appetite, food doesn't taste good. Vomited yesterday, not today. Going to try Ensure. Wants to go home. Objective: Objective: Tmax 99.8 Reviewed SW note - ?home health ?Hospice - seems primary discussed options w/ pt and family yesterday. Vital Signs: Vital Signs Date Time Temp Pulse Resp B/P (MAP) Pulse Ox O2 Delivery O2 Flow Rate FiO2 01/09/21 08:21 Room Air 01/09/21 07:00 99.6 95 18 109/65 (80) 92 99.6 Labs: Laboratory Tests Test 01/09/21 06:25 01/09/21 09:00 Hemoglobin 10.6 g/dL Hematocrit 30.7 % Mean Corpuscular Hemoglobin Concent 34 g/dL Prothrombin Time 16.4 SEC Prothromb Time International Ratio 1.4 Sodium Level 123 mmol/L Potassium Level 6.1 mmol/L Chloride Level 89 mmol/L Carbon Dioxide Level 23 mmol/L Anion Gap 11 Blood Urea Nitrogen 36 mg/dL Creatinine 3.2 mg/dL Estimated GFR (Cockcroft-Gault) 14.4 Glucose Level 125 mg/dL Calcium Level 8.0 mg/dL Magnesium Level 2.4 mg/dL Imaging: Echo 01/08 <Conclusion> The left ventricular systolic function is normal and the ejection fraction is within normal range. The Ejection Fraction is 55%. There is normal LV segmental wall motion. The mitral valve is mildly thickened. The mitral valve appears thickened but no clear vegetation noted. If there is high clinical suspicion for endocarditis, consider DESTIN. PE: GEN: NAD LUNGS: CTAB HEART: RRR ABD:more ascites - now tight, protruding hernia NEURO/PSYCH: A & O 3 A/P: MSSA bacteremia Cirrhosis, recurrent ascites ACD, hyperkalemia, URVASHI, hyponatremia Abd wall hernia containing SB COVID negative 01/04 -- Needs another paracentesis (ordered yesterday), not eating. On diuretics, now w/ URVASHI. Nephrology to see. Started acid-service center specialist as trial for poor appetite yesterday - would continue if okay w/ renal. Will review any additional recs w/ Dr. Teixeira. ?TIPS - extermination supervisor plans unclear Justicifation of Admission Dx: Justifications for Admission: Justification of Admission Dx: N/A RASHIDA-BRANINE,KATHIE PA Jan 09, 2021 10:26
--- NOTE | 2021-01-09 11:02 | PDOC ---
JOSE DANIEL DILLON MACHINE SET UP OPERATOR 01/09/21 1102: Provider Note Date of Service: DATE: 01/09/21 TIME: 10:59 Provider Note Pt is a 70 yo female who has hx of cirrhosis. She is AOx3. No cardiac hx. She is notable for ascites with pending paracentesis and also URVASHI and bacteremia. K is 6.1 and Nephrology has been consulted. Pt does have hx of esophageal varices and Hgb is currently stable with nml PLT. She has had EGD in the past and no issues with strictures per her. Remains to have fever and has +BC with MSSA and DESTIN reqyested by ID. Risks and benefits discussed and agreeable to proceed. Justifications for Admission Other Justification Cirrhosis, abdominal ascites, UTI DONNELL REYES MD 01/09/21 2223: Provider Note Provider Note Case cancelled today due to electrolyte abnormalities. Await renal eval, plan for . thanks JOSE DANIEL DILLON APRN Jan 09, 2021 11:02 DONENLL REYES MD Jan 09, 2021 22:23
[2021-01-09] MEDS ORDERED: LIDOCAINE WITH 8.4% SOD BICARB 3 ML DISP.SYRIN. ONE (11:21)
[2021-01-09] MEDS ORDERED: LIDOCAINE WITH 8.4% SOD BICARB 3 ML DISP.SYRIN. IJ ONE (11:30)
[2021-01-09] MEDS ORDERED: ALBUMIN HUMAN 25% 100 ML IV ONE ×3 (11:53→12:15)
--- NOTE | 2021-01-09 12:23 | RAD ---
Procedure: Ultrasound guided paracentesis Clinical Indication: Adult female with recurrent abdominal ascites Sedation: Local anesthesia only Antibiotics: None Fluoro Time: None Contrast: Not applicable Sterility: The procedure was performed in its entirety using appropriate elements of sterile technique. Consent: The procedure was explained in its entirety to the patient or the patients designated maintenance representative by a member of the treatment team, including a discussion of the risks, benefits and commonly accepted alternatives to the procedure, as well as the expected consequences of no therapy whatsoever. Discussion of the risks included, but was not limited to, those that are most frequent and those that are rare but possibly severe or life-threatening, as well as the possibility of unforeseen complications. Technique and Findings: Following informed consent, the patient was prepped and draped in the usual sterile fashion. Ultrasound interrogation of the abdomen revealed abdominal ascites. A hard copy ultrasound image was recorded. 1% Lidocaine was used to achieve local anesthesia over the area of interest, and a 6 Yoruba Wubs-N-Sudftksn catheter was advanced into the peritoneal cavity under ultrasound guidance. 5500 cc of thin yellow ascites was then withdrawn. The catheter was removed and hemostasis was achieved with manual compression. Complications: No immediate Impression: 1. Ultrasound-guided paracentesis as described
--- NOTE | 2021-01-09 13:09 | PATHOLOGY ---
Note [facility] Accession Number: [id number] TESTS RESULT FLAG UNITS REF RANGE LAB Clinician Provided Cytology Information No. of containers..01 Other (Miscellaneous) Source: PERITONEAL DIAGNOSIS: 02 PERITONEAL NEGATIVE FOR MALIGNANT CELLS. DEGENERATING MESOTHELIAL CELLS, AND CHRONIC AND ACUTE INFLAMMATORY CELLS PRESENT. THIS EVALUATION INCLUDES EXAMINATION OF A CELL BLOCK. Signed out by: 02 Jacob Martinez MD, Pathologist NPI- [id number] Performed by: Elizabeth Hernandez, Pharmacovigilance Scientist ([facility]) Gross description: 37, YELLOW, ITP1CB /LCS 01/08/2021 0722 Local FLAG LEGEND: L-Low Normal,H-High Normal,LL-Alert Low,HH-Alert High <-Panic Low,>-Panic High,A-Abnormal,AA-Critical Abnormal Performed at: [address] [place] [address] Dennis Liz MD, 02 [facility] [address] [place] [address] Jacob Martinez MD, Specimen Comment: Report sent to Performed at: [address], [place], [place] [id number] MD Dennis Liz MD Phone: [phone]
--- NOTE | 2021-01-09 14:02 | PDOC ---
[employer] PROGRESS NOTE Date of Service DOS: DATE: 01/09/21 TIME: 13:54 Chief Complaint Chief Complaint sepsis UTI MSSA bacteremia, severe malnutrition, abd ascites, hepatic cirrhosis, liver disease from EtOH abuse for years, MELD 18 s/p paracentesis URVASHI due to vasomotor nephropathy, possible hepatorenal syndrome Hyperkalemia Nephrology consult Hold diuretics Avoid nephrotoxic agents Pending DESTIN History of Present Illness History of Present Illness 01/09/2021 No acute events overnight. Patient appears to be refractory to diuresis. URVASHI today and some hyperkalemia. Nephrology is consulted. Pending paracentesis. Pending DESTIN. Patient's chart, labs, images were reviewed and discussed with RN 01/08/2021 No acute events overnight. Patient seen and examined bedside. Patient did have an episode of vomiting that required IV antiemetics. Patient's abdominal distention also worsening. Will defer to GI for possible repeat paracentesis before discharge. Advance care planning: A total time of > 17 minutes was spent from 1130 to 1150 face to face in discussion with the patient and family regarding their goals of care, transplantation, hospice. As of now, there is no final decision of whether the patient wants to go through transplant evaluation or hospice care. Detailed instructions and goals were discussed with the brother and sister regarding strict I's and O's, daily weights, low-sodium diet and fluid restriction. Patient will also need to consider being on diuretics and repeat routine paracentesis until a definitive transplant plan can be laid out for them. They have been following with die repairer forging Dr. Crystal at [facility] in the past but was lost to follow-up mainly because the patient relapsed into drinking alcohol again. According to the brother the patient has been sober for the last 2 months and felt that it would be a good time to reconsider the transplant route. 01/07 ID consult following, narrowed abx to Nafcillin repeat cx pending echo ordered, May need PICC and IV abx, pt thinks she feels well for DC, need coordination for ID and the abx blood cx showed Gm pos cocci, yesterdaay, VANCOmycin dosed, now today, MSSA pos cult. panchal sens. will stop the vanc, order echo, consult ID, severe malntrition paracentesis yesterday, cont current, that cx is pending, the PMN count is < 250, not likely SBP, risk of secondary staph infection is high Vitals/I&O Vitals/I&O: Vital Signs Date Time Temp Pulse Resp B/P (MAP) Pulse Ox O2 Delivery O2 Flow Rate FiO2 01/09/21 12:08 98 18 125/58 (80) 91 Room Air 01/09/21 11:00 99.2 99.2 I & O 01/08/21 01/08/21 01/09/21 15:00 23:00 07:00 Intake Total 200 ml 300 ml 300 ml Output Total 0 ml Balance 200 ml 300 ml 300 ml Physical Exam Physical Exam: GENERAL: alert, thin, smiling HEENT: Pupils equally round, normal conjunctivae, mild icterus. Oral cavity, pink. No lesions seen. NECK: Supple. LUNGS: Diminished aeration at the bases. No accessory muscle use. HEART: Normal S1, S2. No murmur appreciated. ABDOMEN: Distended, taut, mildly tender with bowel sounds present. Umbilical hernia noted. EXTREMITIES: No gross edema or cyanosis. SKIN: Warm to touch. No signs of rash. NEUROLOGIC: Alert, answering questions appropriately. Peripheral IV looks okay. General: Alert, Oriented X3, Cooperative Heart: Regular rate, Other (tachy) Lungs: Clear Abdomen: Soft, Other (Nontender, hernia reducible, ascites noted ) Extremities: No cyanosis Skin: No rashes, No breakdown Labs Labs: Laboratory Tests Test 01/09/21 06:25 01/09/21 09:00 Hemoglobin 10.6 g/dL (12.0-15.5) Hematocrit 30.7 % (36.0-47.0) Mean Corpuscular Hemoglobin Concent 34 g/dL (31-37) Prothrombin Time 16.4 SEC (11.7-14.0) Prothromb Time International Ratio 1.4 (0.8-1.1) Sodium Level 123 mmol/L (136-145) Potassium Level 6.1 mmol/L (3.5-5.1) Chloride Level 89 mmol/L (98-107) Carbon Dioxide Level 23 mmol/L (21-32) Anion Gap 11 (6-14) Blood Urea Nitrogen 36 mg/dL (7-20) Creatinine 3.2 mg/dL (0.6-1.0) Estimated GFR (Cockcroft-Gault) 14.4 Glucose Level 125 mg/dL (70-99) Calcium Level 8.0 mg/dL (8.5-10.1) Magnesium Level 2.4 mg/dL (1.8-2.4) Assessment and Plan Assessmemt and Plan Problems Medical Problems: (1) Sepsis Status: Acute Comment Review of Relevant I have reviewed the following items chilo (where applicable) has been applied. Medications: Current Medications Medications (Trade) Dose Ordered Sig/Ramya Route PRN Reason Start Time Stop Time Status Last Admin Dose Admin Pantoprazole Sodium (PROTONIX VIAL for IV PUSH) 40 mg DAILYAC IVP 01/08/21 14:30 01/09/21 06:15 Sodium Polystyrene Sulfonate (Kayexalate) 15 gm 1X ONCE PO 01/09/21 09:45 01/09/21 09:46 DC 01/09/21 12:28 Lidocaine HCl (Buffered Lidocaine 1%) 3 ml 1X ONCE IJ 01/09/21 11:30 01/09/21 11:31 DC 01/09/21 11:46 Albumin Human 100 ml @ 100 mls/hr 1X ONCE IV 01/09/21 12:00 01/09/21 12:59 DC 01/09/21 12:00 Albumin Human 100 ml @ 100 mls/hr 1X ONCE IV 01/09/21 12:15 01/09/21 13:14 DC 01/09/21 13:12 Justifications for Admission Other Justification Cirrhosis, abdominal ascites, UTI ANNA VELASQUEZ MD Jan 09, 2021 14:02
[2021-01-09] MEDS: IV NORMAL SALINE 1000ML BAG 1,000 ML IV SCH (14:03)
--- NOTE | 2021-01-09 16:03 | PDOC2 ---
CONSULT Date of Consult Date of Consult DATE: 01/09/21 TIME: 15:50 Reason for Consult Reason for Consult: URVASHI AND ELECTROLYTE IMBALANCE Referring Physician Referring Physician: NENA Identification/Chief Complaint Chief Complaint ABD PAIN History of Present Illness Reason for Visit: THIS IS A 70 YR OLD WITH URVASHI, HYPONATREMIA AND HYPERKALEMIA. ADMITTED WITH ABD DISTENTION. HAS ASCITES AND LIVER FAILURE DUE TO ETOH ABUSE. HAS BEEN FOLLOWING AT [facility] FOR THIS. APPARENTLY ABSTINENT SINCE NOVEMBER. CURRENTLY HAS MSSA BACTEREMIA. DESTIN PENDING TO RULE OUT INFECTIOUS ENDOCARDITIS. ID EVALUATION AND TX ONGOING. NO PRIOR HX OF URVASHI, CR OF 3.2 FROM NL ON ADMIT AND WORSENING HYPONATREMIA AND HYPERKALEMIA. SHE DID HAVE CONTRAST EXPOSURE ON ADMIT FOR A CT OF ABD AND PELVIS AND HAS UNDERGONE TWO LARGE VOLUME PARACENTESIS Past Medical History Cardiovascular: HTN Heme/Onc: No pertinent hx Hepatobiliary: Cirrhosis Psych: Addictions Rheumatologic: No pertinent hx Infectious disease: No pertinent hx Renal/: No pertinent hx Endocrine: No pertinent hx Dermatology: No pertinent hx Past Surgical History Past Surgical History: Hernia Repair Family History Family History: No Significant Social History No ALCOHOL: other (QUIT IN NOVEMBER) Drugs: None Current Problem List Problem List Problems Medical Problems: (1) Sepsis Status: Acute Current Medications Current Medications Current Medications Piperacillin Sod/ Tazobactam Sod 3.375 gm/Sodium Chloride 50 ml @ 100 mls/hr 1X ONCE IV Last administered on 01/03/21at 19:12; Start 01/03/21 at 18:45; Stop 01/03/21 at 19:14; Status DC Iohexol (Omnipaque 300 Mg/ml) 60 ml 1X ONCE IV Last administered on 01/03/21at 20:00; Start 01/03/21 at 20:00; Stop 01/03/21 at 20:01; Status DC Iohexol (Omnipaque 240 Mg/ml) 50 ml 1X ONCE PO Last administered on 01/03/21at 20:46; Start 01/03/21 at 20:45; Stop 01/03/21 at 20:46; Status DC Info (CONTRAST GIVEN -- Rx MONITORING) 1 each PRN DAILY PRN MC SEE COMMENTS; Start 01/03/21 at 20:45; Stop 01/05/21 at 20:44; Status DC Sodium Chloride 1,000 ml @ 1,000 mls/hr 1X ONCE IV Last administered on 01/03/21at 21:54; Start 01/03/21 at 21:45; Stop 01/03/21 at 22:44; Status DC Ibuprofen (Motrin) 400 mg PRN Q6HRS PRN PO INFLAMMATION; Start 01/04/21 at 00:45; Status Cancel Ondansetron HCl (Zofran) 4 mg PRN Q6HRS PRN IVP NAUSEA/VOMITING; Start 01/04/21 at 01:30 Al Hydroxide/Mg Hydroxide (Mylanta Plus Xs) 30 ml PRN Q3HRS PRN PO HEARTBURN / GAS; Start 01/04/21 at 01:30 Calcium Carbonate/ Glycine (Tums) 500 mg PRN Q3HRS PRN PO UPSET STOMACH; Start 01/04/21 at 01:30 Ibuprofen (Motrin) 400 mg PRN Q6HRS PRN PO INFLAMMATION Last administered on 01/08/21at 19:56; Start 01/04/21 at 01:30 Magnesium Hydroxide (Milk Of Magnesia) 2,400 mg PRN Q12HR PRN PO CONSTIPATION; Start 01/04/21 at 01:30 Bisacodyl (Dulcolax Supp) 10 mg PRN DAILY PRN [place] CONSTIPATION; Start 01/04/21 at 01:30 Heparin Sodium (Porcine) (Heparin Sodium) 5,000 unit Q12HR SQ Last administered on 01/08/21at 10:13; Start 01/04/21 at 09:00 Piperacillin Sod/ Tazobactam Sod (Zosyn Per Pharmacy) 1 each PRN DAILY PRN MC SEE COMMENTS; Start 01/04/21 at 09:00; Status Cancel Piperacillin Sod/ Tazobactam Sod 3.375 gm/Sodium Chloride 50 ml @ 100 mls/hr Q6H IV Last administered on 01/06/21at 09:00; Start 01/04/21 at 09:00; Stop 01/06/21 at 09:09; Status DC Sodium Chloride 1,000 ml @ 75 mls/hr [id number] IV Last administered on 01/04/21at 21:10; Start 01/04/21 at 12:00; Stop 01/05/21 at 13:56; Status DC Vancomycin HCl (Vanco Per Pharmacy) 1 each PRN DAILY PRN MC SEE COMMENTS Last administered on 01/05/21at 11:15; Start 01/04/21 at 14:45; Stop 01/06/21 at 09:17; Status DC Vancomycin HCl 1.25 gm/Sodium Chloride 250 ml @ 166.667 mls/hr 1X ONCE IV Last administered on 01/04/21at 15:58; Start 01/04/21 at 15:30; Stop 01/04/21 at 16:59; Status DC Vancomycin HCl 750 mg/Sodium Chloride 250 ml @ 250 mls/hr Q24H IV Last administered on 01/05/21at 17:49; Start 01/05/21 at 16:00; Stop 01/06/21 at 09:15; Status DC Vancomycin HCl (Vancomycin Trough Level) 1 each 1X ONCE MC ; Start 01/06/21 at 15:30; Stop 01/06/21 at 09:17; Status DC Lidocaine HCl (Buffered Lidocaine 1%) 3 ml STK-MED ONCE .ROUTE ; Start 01/05/21 at 07:43; Stop 01/05/21 at 07:43; Status DC Lidocaine HCl (Buffered Lidocaine 1%) 3 ml 1X ONCE IJ Last administered on 01/05/21at 08:50; Start 01/05/21 at 08:45; Stop 01/05/21 at 08:46; Status DC Lactobacillus Rhamnosus (Culturelle) 1 cap BID PO Last administered on 1at 09:29; Start 01/05/21 at 21:00 Vitamin B Complex (Folbic Tablet) 1 tab DAILY PO Last administered on 01/09/21at 09:29; Start 01/05/21 at 14:30 Cyanocobalamin (Vitamin B-12) 1,000 mcg 1X ONCE IM Last administered on 01/05/21at 14:36; Start 01/05/21 at 14:30; Stop 01/05/21 at 14:31; Status DC Potassium Chloride (Klor-Con) 20 meq [id number] PO Last administered on 01/08/21at 10:03; Start 01/06/21 at 08:00; Stop 01/09/21 at 09:59; Status DC Potassium Chloride (Klor-Con) 40 meq 1X ONCE PO Last administered on 01/05/21at 14:35; Start 01/05/21 at 14:30; Stop 01/05/21 at 14:31; Status DC Magnesium Sulfate 50 ml @ 25 mls/hr 1X ONCE IV Last administered on 01/05/21at 14:35; Start 01/05/21 at 15:00; Stop 01/05/21 at 16:59; Status DC Vitamin D (Vitamin D3) 5,000 unit DAILY PO Last administered on 01/09/21at 09:29; Start 01/05/21 at 14:30 Potassium Chloride (Klor-Con) 20 meq 1X ONCE PO Last administered on 01/05/21at 17:49; Start 01/05/21 at 18:00; Stop 01/05/21 at 18:01; Status DC Piperacillin Sod/ Tazobactam Sod (Zosyn Per Pharmacy) 1 each PRN DAILY PRN MC SEE COMMENTS; Start 01/06/21 at 09:15; Stop 01/06/21 at 17:55; Status DC Piperacillin Sod/ Tazobactam Sod 3.375 gm/Sodium Chloride 50 ml @ 100 mls/hr Q6HRS IV Last administered on 01/06/21at 17:43; Start 01/06/21 at 12:00; Stop 01/06/21 at 17:55; Status DC Furosemide (Lasix) 20 mg DAILY PO Last administered on 01/08/21at 10:04; Start 01/06/21 at 10:30; Stop 01/09/21 at 09:36; Status DC Spironolactone (Aldactone) 100 mg DAILY PO Last administered on 01/08/21at 10:04; Start 01/06/21 at 10:30; Stop 01/09/21 at 09:37; Status DC Nafcillin Sodium 2 gm/Dextrose 100 ml @ 200 mls/hr Q4HRS IV Last administered on 01/09/21at 14:01; Start 01/06/21 at 20:00 Pantoprazole Sodium (PROTONIX VIAL for IV PUSH) 40 mg DAILYAC IVP Last administered on 01/09/21at 06:15; Start 01/08/21 at 14:30 Sodium Polystyrene Sulfonate (Kayexalate) 15 gm 1X ONCE PO Last administered on 01/09/21at 12:28; Start 01/09/21 at 09:45; Stop 01/09/21 at 09:46; Status DC Lidocaine HCl (Buffered Lidocaine 1%) 3 ml 1X ONCE IJ Last administered on 01/09/21at 11:46; Start 01/09/21 at 11:30; Stop 01/09/21 at 11:31; Status DC Lidocaine HCl (Buffered Lidocaine 1%) 3 ml STK-MED ONCE .ROUTE ; Start 01/09/21 at 11:21; Stop 01/09/21 at 11:22; Status DC Albumin Human 100 ml @ As Directed STK-MED ONCE IV ; Start 01/09/21 at 11:53; Stop 01/09/21 at 11:54; Status DC Albumin Human 100 ml @ 100 mls/hr 1X ONCE IV Last administered on 01/09/21at 12:00; Start 01/09/21 at 12:00; Stop 01/09/21 at 12:59; Status DC Albumin Human 100 ml @ 100 mls/hr 1X ONCE IV Last administered on 01/09/21at 13:12; Start 01/09/21 at 12:15; Stop 01/09/21 at 13:14; Status DC Sodium Chloride 1,000 ml @ 75 mls/hr [id number] IV Last administered on 01/09/21at 14:03; Start 01/09/21 at 13:00 Active Scripts Active Reported Lasix (Furosemide) 20 Mg Tablet 20 Mg PO DAILY B Complex (Vitamin B Complex) 1 Each Tablet 1 Tab PO DAILY 30 Days Spironolactone 100 Mg Tablet 100 Mg PO DAILY Milk Thistle (Milk Thistle Seed Extract) 140 Mg Capsule 140 Mg PO DAILY Ibuprofen 400 Mg Tablet 400 Mg PO PRN Q6HRS PRN D3 + K2 Dots 1,000 Units Tab (Vitamin D3/Vitamin K2) 1 Each Tab.rapdis 1 Tab PO DAILY 30 Days Vitamin A 8,000 Unit Capsule 1 Cap PO DAILY 30 Days Allergies Allergies: Coded Allergies: No Known Drug Allergies (Unverified , 06/22/20) ROS General: YES: Fatigue PSYCHOLOGICAL ROS: YES: Anxiety, Depression Eyes: Yes Decreased vision HEENT: YES: Heacaches Respiratory: YES: Cough, Shortness of breath Gastrointestinal: Yes Abdominal Pain, Yes Constipation, Yes Other (ABD DISTENTION) Genitourinary: YES Frequency Musculoskeletal: Yes Muscular Weakness Neurological: Yes Weakness Skin: Yes Dry Skin Physical Exam General: Alert, Oriented X3, Cooperative, No acute distress HEENT: Atraumatic Lungs: Clear to auscultation Heart: Regular rate Abdomen: Normal bowel sounds, Other (DISTENDED) Extremities: No edema Skin: No rashes Neuro: Other (NO ASYMMETRY) Psych/Mental Status: Other (FLAT AFFECT) MUSCULOSKELETAL: No deformity, No swelling Vitals VITALS Vital Signs Date Time Temp Pulse Resp B/P (MAP) Pulse Ox O2 Delivery O2 Flow Rate FiO2 01/09/21 15:00 98.3 90 16 116/60 (78) 93 Room Air 98.3 Labs Labs Laboratory Tests Test 01/09/21 06:25 01/09/21 09:00 Hemoglobin 10.6 g/dL (12.0-15.5) Hematocrit 30.7 % (36.0-47.0) Mean Corpuscular Hemoglobin Concent 34 g/dL (31-37) Prothrombin Time 16.4 SEC (11.7-14.0) Prothromb Time International Ratio 1.4 (0.8-1.1) Sodium Level 123 mmol/L (136-145) Potassium Level 6.1 mmol/L (3.5-5.1) Chloride Level 89 mmol/L (98-107) Carbon Dioxide Level 23 mmol/L (21-32) Anion Gap 11 (6-14) Blood Urea Nitrogen 36 mg/dL (7-20) Creatinine 3.2 mg/dL (0.6-1.0) Estimated GFR (Cockcroft-Gault) 14.4 Glucose Level 125 mg/dL (70-99) Calcium Level 8.0 mg/dL (8.5-10.1) Magnesium Level 2.4 mg/dL (1.8-2.4) Laboratory Tests Test 01/09/21 06:25 01/09/21 09:00 Hemoglobin 10.6 g/dL (12.0-15.5) Hematocrit 30.7 % (36.0-47.0) Mean Corpuscular Hemoglobin Concent 34 g/dL (31-37) Prothrombin Time 16.4 SEC (11.7-14.0) Prothromb Time International Ratio 1.4 (0.8-1.1) Sodium Level 123 mmol/L (136-145) Potassium Level 6.1 mmol/L (3.5-5.1) Chloride Level 89 mmol/L (98-107) Carbon Dioxide Level 23 mmol/L (21-32) Anion Gap 11 (6-14) Blood Urea Nitrogen 36 mg/dL (7-20) Creatinine 3.2 mg/dL (0.6-1.0) Estimated GFR (Cockcroft-Gault) 14.4 Glucose Level 125 mg/dL (70-99) Calcium Level 8.0 mg/dL (8.5-10.1) Magnesium Level 2.4 mg/dL (1.8-2.4) Assessment/Plan Assessment/Plan IMP URVASIH WITH CR OF 3.2-MULTIFACTORIAL FROM DECREASED RBF AND CAN-NO CKD MSSA BACTEREMIA SEPSIS UTI HEP CIRRHOSIS FROM ETOH ABUSE S/P LARGE VOLUME PARACENTESIS TWICE HYPERKALEMIA HYPONATREMIA PLAN POSSIBLE HEPATORENAL BUT CAN MOST LIKELY ALBUMIN INFUSION SALINE INFUSION ANTIBIOTICS KAYEXALATE MAY NEED 3% SALINE URINE STUDIES AND OSMOLALITY DESTIN PENDING CORRECTION OF ELECTROLYTES WILL FOLLOW JOHN AYALA MD Jan 09, 2021 16:02
--- NOTE | 2021-01-09 20:15 | NUR ---
Scheduled dose of Heparin non-administered this PM d/t scheduled procedure on 01/10.
[2021-01-09] MEDS: IBUPROFEN 400 MG TABLET. PO PRN (20:16)
[2021-01-10] MEDS: NAFCILLIN 2 GM in IV DEXTROSE 5% 100ML 100 ML IV SCH ×3 (00:10→08:14)
[2021-01-10 03:23] VITALS: BP 110/64
[2021-01-10] MEDS: IV NORMAL SALINE 1000ML BAG 1,000 ML IV SCH ×2 (04:10→15:40)
[2021-01-10 06:33] LABS: ALBUMIN 1.8 g/dL (3.4-5.0); ALBUMIN/GLOBULIN RATIO 0.4 (1.0-1.7); CALCIUM 7.1 mg/dL (8.5-10.1); GFR 11.1; TOTAL BILIRUBIN 6.9 mg/dL (0.2-1.0); TOTAL PROTEIN 6.5 g/dL (6.4-8.2)
[2021-01-10 06:38] LABS: POTASSIUM 6.2 mmol/L (3.5-5.1)
[2021-01-10 07:00] VITALS: BP 123/76
[2021-01-10] MEDS ORDERED: SODIUM POLYSTYRENE SULFON/SORB 15 GM/60 ML ORAL.SUSP. PO ONE (07:00)
--- NOTE | 2021-01-10 07:02 | NUR ---
Dr. Hernandez notified of critical potassium and sodium results; orders received and endorsed to MARCIAL Melissa.
[2021-01-10] MEDS: PANTOPRAZOLE IV PUSH 40 MG VIAL. IVP SCH (08:13)
--- NOTE | 2021-01-10 08:20 | PDOC ---
Infectious Disease Note Subjective: Subjective Pt feels that abdominal distension and abdominal discomfort has improved a little bit since paracentesis Denies fever or chills,nausea or vomiting Vital Signs: Vital Signs Vital Signs Date Time Temp Pulse Resp B/P (MAP) Pulse Ox O2 Delivery O2 Flow Rate FiO2 01/10/21 07:30 Room Air 01/10/21 07:00 97.4 97 15 123/76 (92) 92 97.4 01/10/21 03:23 2.0 Physical Exam: PHYSICAL EXAM GENERAL: alert, thin, smiling HEENT: Pupils equally round, normal conjunctivae, mild icterus. Oral cavity, pink. No lesions seen. NECK: Supple. LUNGS: Diminished aeration at the bases. No accessory muscle use. HEART: Normal S1, S2. No murmur appreciated. ABDOMEN: Distended, taut, mildly tender with bowel sounds present. Umbilical hernia noted. EXTREMITIES: No gross edema or cyanosis. SKIN: Warm to touch. No signs of rash. NEUROLOGIC: Alert, answering questions appropriately. Peripheral IV looks okay. Medications: Inpatient Meds: Medications reviewed. Labs: Lab Laboratory Tests Test 01/09/21 09:00 01/10/21 04:00 Sodium Level 123 mmol/L (136-145) 120 mmol/L (136-145) Potassium Level 6.1 mmol/L (3.5-5.1) 6.2 mmol/L (3.5-5.1) Chloride Level 89 mmol/L (98-107) 85 mmol/L (98-107) Carbon Dioxide Level 23 mmol/L (21-32) 21 mmol/L (21-32) Anion Gap 11 (6-14) 14 (6-14) Blood Urea Nitrogen 36 mg/dL (7-20) 41 mg/dL (7-20) Creatinine 3.2 mg/dL (0.6-1.0) 4.0 mg/dL (0.6-1.0) Estimated GFR (Cockcroft-Gault) 14.4 11.1 Glucose Level 125 mg/dL (70-99) 146 mg/dL (70-99) Calcium Level 8.0 mg/dL (8.5-10.1) 7.1 mg/dL (8.5-10.1) Magnesium Level 2.4 mg/dL (1.8-2.4) BUN/Creatinine Ratio 10 (6-20) Total Bilirubin 6.9 mg/dL (0.2-1.0) Aspartate Amino Transf (AST/SGOT) 36 U/L (15-37) Alanine Aminotransferase (ALT/SGPT) 19 U/L (14-59) Alkaline Phosphatase 113 U/L (46-116) Total Protein 6.5 g/dL (6.4-8.2) Albumin 1.8 g/dL (3.4-5.0) Albumin/Globulin Ratio 0.4 (1.0-1.7) Micro Micro Final GROWTH OF GRAM POSITIVE COCCI FINAL ID= [STAPHYLOCOCCUS AUREUS] STAPHYLOCOCCUS AUREUS ANTIMICROBIAL SUSCEPTIBILITY Final Comment POS ISSAC TYPE 38 STAPHYLOCOCCUS AUREUS ANTIBIOTIC RESULT INTERPRETATION AZITHROMYCIN <=2 S CLINDAMYCIN <=0.25 S CEFOXITIN SCREEN <=4 NEG CIPROFLOXACIN <=1 S CEFTAROLINE <=0.5 S DAPTOMYCIN <=0.5 S ERYTHROMYCIN <=0.25 S GENTAMICIN <=4 S LINEZOLID 2 S LEVOFLOXACIN <=1 S OXACILLIN <=0.25 S PENICILLIN >2 Hyun RIFAMPIN <=1 S TRIMETHOPRIM/SULFAMETHOXAZOLE <=0.5/9.5 S TETRACYCLINE <=4 S VANCOMYCIN 1 S LINN: 01/05/21 STATUS: RES REQ #: [id number] ABDOMINAL FLUID GRAM STAIN Final Final NO ORGANISMS SEEN. SQUAMOUS EPI CELL:NOT APPLICABLE PMN (WBCs):RARE ANAEROBIC-AEROBIC CULTURE Preliminary Preliminary No Growth on 01/06/21 at 0958 No Growth on 01/07/21 at 1038 Unless otherwise specified, Testing Performed by: [address] [address] For Inquires, the Physician may contact the Microbiology department at [phone] 2D echo The left ventricular systolic function is normal and the ejection fraction is wi thin normal range. The Ejection Fraction is 55%. There is normal LV segmental wall motion. The mitral valve is mildly thickened. The mitral valve appears thickened but no clear vegetation noted. If there is high clinical suspicion for endocarditis, consider DESTIN. Objective: Assessment: MSSA sepsis from 01/03/2021. MSSA peritonitis from 12/05/2020. Repeat paracentesis on 01/05/2021 also indicative peritonitis with 1100 wbc's. -Cult neg so far -Repeat paracentesis 01/09/2021 Leukocytosis. Alcoholic liver disease with recurrent ascites. Umbilical hernia. Weight loss. Coagulopathy Hyponatremia, Abd wall hernia containing SB COVID negative 01/04 URVASHI Plan: Plan of Care DC Nafcillin due to URVASHI Start cefazolin hold picc line placement for now Renal team consulted Check urine eosinophils Repeat BC 01/06 neg so far Peritoneal fluid cultures negative so far Echo results noted Follow-up DESTIN,scheduled for 01/11 Monitor lab values and temp monitor abdo distention closely Supportive care CJ HUMPHRIES MD Jan 10, 2021 08:20
[2021-01-10] MEDS: LACTOBACILLUS RHAMNOSUS GG 1 CAPSULE. PO SCH ×2 (09:23→22:00)
[2021-01-10] MEDS: CHOLECALCIFEROL (VITAMIN D3) 5,000 UNIT CAPSULE PO SCH (09:23)
[2021-01-10] MEDS: VITAMIN B12,B9,B6 COMPLEX 1 TABLET. PO SCH (09:23)
[2021-01-10] MEDS: HEPARIN for SUB-Q USE 5,000 UNIT/ML VIAL. SQ SCH ×2 (09:28→21:34)
--- NOTE | 2021-01-10 09:36 | PDOC ---
Date of Service: DATE: 01/10/21 TIME: 09:30 Subjective: Subjective: Not hungry, abdomen still distended, doesn't think she urinated much. I asked her if she had thought more about Hospice or attempting aggressive treatment - says she doesn't want Hospice. Objective: Objective: D/w Dr. Rodas and nurse. Vital Signs: Vital Signs Date Time Temp Pulse Resp B/P (MAP) Pulse Ox O2 Delivery O2 Flow Rate FiO2 01/10/21 07:30 Room Air 01/10/21 07:00 97.4 97 15 123/76 (92) 92 97.4 01/10/21 03:23 2.0 Labs: Laboratory Tests Test 01/10/21 04:00 Sodium Level 120 mmol/L Potassium Level 6.2 mmol/L Chloride Level 85 mmol/L Carbon Dioxide Level 21 mmol/L Anion Gap 14 Blood Urea Nitrogen 41 mg/dL Creatinine 4.0 mg/dL Estimated GFR (Cockcroft-Gault) 11.1 BUN/Creatinine Ratio 10 Glucose Level 146 mg/dL Calcium Level 7.1 mg/dL Total Bilirubin 6.9 mg/dL Aspartate Amino Transf (AST/SGOT) 36 U/L Alanine Aminotransferase (ALT/SGPT) 19 U/L Alkaline Phosphatase 113 U/L Total Protein 6.5 g/dL Albumin 1.8 g/dL Albumin/Globulin Ratio 0.4 ORDERED: ANAER/AEROB/GS COMMENTS: Specimen Description: ascites Has specimen been collected/obtained? Y ABDOMINAL FLUID --------- --- Procedure Result GRAM STAIN Final Final NO ORGANISMS SEEN. SQUAMOUS EPI CELL:NOT APPLICABLE PMN (WBCs):RARE ANAEROBIC-AEROBIC CULTURE Final Final No Growth on 01/06/21 at 0958 No Growth on 01/07/21 at 1038 No Growth on 01/10/21 at 0909 Unless otherwise specified, Testing Performed by: [facility] [address] [place] [address] For Inquires, the Physician may contact the Microbiology department at [phone] Imaging: Paracentesis 01/09 5.5L PE: GEN: appears chronically ill LUNGS: CTAB HEART: RRR ABD: distended w/ ascites, hernia - maybe mild improvement after paracentesis EXTREMITY: No edema NEURO/PSYCH: A & O 3 A/P: MSSA bacteremia, mitral valve thickening - plans for DESTIN tomorrow Cirrhosis (alcohol - reports sobriety since 11/17/20), recurrent ascites - s/p another paracentesis yesterday ACD Hyperkalemia, URVASHI, hyponatremia - ?hepatorenal Abd wall hernia containing SB - poor surgical candidate COVID negative 01/04 -- Not improving. With most recent labs (including Na), MELD is 34. Justicifation of Admission Dx: Justifications for Admission: Justification of Admission Dx: N/A KATHIE CLEMENTS Jan 10, 2021 09:36
[2021-01-10] MEDS: ceFAZolin SODIUM IV Push 1 GM VIAL. IVP SCH (09:37)
--- NOTE | 2021-01-10 09:37 | NUR ---
MARY following. Discussed with RN, pt from home with brother, room air, cardiac diet. Pt scheduled for a DESTIN tomorrow. Awaiting cultures. Home Health vs hospice. Dr. Rodas is going to discuss with Dr. Logan to determine if pt is going to need dialysis. MARY will continue to follow. Addendum: 01/10/21 at 1236 by YU HERNANDEZ Pt getting temporary dialysis catheter placed today. Pt's brother requested to speak with MARY RE hospice. MARY met with pt's brother, he needs to speak to another family member to determine the name of the hospice company another family member has used before. MARY provided MARY phone number and will await call or text from pt's brother. Pt's brother wondering about a hospice house, MARY explained that pt would have to meet certain criteria in order to go to a hospice house. Pt's brother verbalized understanding. MARY will continue to follow.
[2021-01-10] MEDS ORDERED: LIDOCAINE WITH 8.4% SOD BICARB 3 ML DISP.SYRIN. ONE (10:54)
[2021-01-10 11:00] VITALS: BP 125/77
[2021-01-10] MEDS ORDERED: LIDOCAINE WITH 8.4% SOD BICARB 3 ML DISP.SYRIN. INJ ONE (11:00)
--- NOTE | 2021-01-10 11:15 | NUR ---
Pt. down to IR for temp dialysis cath placement via bed.
--- NOTE | 2021-01-10 11:37 | PDOC ---
[employer] PROGRESS NOTE Date of Service DOS: DATE: 01/10/21 TIME: 11:35 Chief Complaint Chief Complaint sepsis UTI MSSA bacteremia, abd ascites, hepatic cirrhosis, liver disease from EtOH abuse for years, MELD 18 now 34 s/p paracentesis URVASHI due to vasomotor nephropathy, possible hepatorenal syndrome Acute electrolyte derangementhyperkalemia, hyponatremia Hyperbilirubinemia Severe protein malnutrition IR consult for temporary dialysis catheter placement Nephrology consult Hold diuretics Avoid nephrotoxic agents Pending DESTIN planned for History of Present Illness History of Present Illness 01/09/2021 No acute events overnight. Patient appears to be refractory to diuresis. URVASHI today and some hyperkalemia. Nephrology is consulted. Pending paracentesis. Pending DESTIN. Patient's chart, labs, images were reviewed and discussed with RN 01/08/2021 No acute events overnight. Patient seen and examined bedside. Patient did have an episode of vomiting that required IV antiemetics. Patient's abdominal distention also worsening. Will defer to GI for possible repeat paracentesis before discharge. Advance care planning: A total time of > 17 minutes was spent from 1130 to 1150 face to face in discussion with the patient and family regarding their goals of care, transplantation, hospice. As of now, there is no final decision of whether the patient wants to go through transplant evaluation or hospice care. Detailed instructions and goals were discussed with the brother and sister regarding strict I's and O's, daily weights, low-sodium diet and fluid restriction. Patient will also need to consider being on diuretics and repeat routine paracentesis until a definitive transplant plan can be laid out for them. They have been following with balloon design printer Dr. Crystal at [facility] in the past but was lost to follow-up mainly because the patient relapsed into drinking alcohol again. According to the brother the patient has been sober for the last 2 months and felt that it would be a good time to reconsider the transplant route. 01/07 ID consult following, narrowed abx to Nafcillin repeat cx pending echo ordered, May need PICC and IV abx, pt thinks she feels well for DC, need coordination for ID and the abx blood cx showed Gm pos cocci, yesterdaay, VANCOmycin dosed, now today, MSSA pos cult. panchal sens. will stop the vanc, order echo, consult ID, severe malntrition paracentesis yesterday, cont current, that cx is pending, the PMN count is < 250, not likely SBP, risk of secondary staph infection is high Vitals/I&O Vitals/I&O: Vital Signs Date Time Temp Pulse Resp B/P (MAP) Pulse Ox O2 Delivery O2 Flow Rate FiO2 01/10/21 11:00 97.7 70 16 125/77 (93) 98 Room Air 97.7 01/10/21 03:23 2.0 I & O 01/09/21 01/09/21 01/10/21 15:00 23:00 07:00 Intake Total 100 ml 200 ml 2120 ml Output Total 5500 ml Balance -5400 ml 200 ml 2120 ml Physical Exam Physical Exam: GENERAL: alert, thin, smiling HEENT: Pupils equally round, normal conjunctivae, mild icterus. Oral cavity, pink. No lesions seen. NECK: Supple. LUNGS: Diminished aeration at the bases. No accessory muscle use. HEART: Normal S1, S2. No murmur appreciated. ABDOMEN: Distended, taut, mildly tender with bowel sounds present. Umbilical hernia noted. EXTREMITIES: No gross edema or cyanosis. SKIN: Warm to touch. No signs of rash. NEUROLOGIC: Alert, answering questions appropriately. Peripheral IV looks okay. General: Alert, Oriented X3, Cooperative, No acute distress Heart: Regular rate Lungs: Clear Abdomen: Normal bowel sounds, Other (DISTENDED) Extremities: No edema Skin: No rashes Labs Labs: Laboratory Tests Test 01/10/21 04:00 Sodium Level 120 mmol/L (136-145) Potassium Level 6.2 mmol/L (3.5-5.1) Chloride Level 85 mmol/L (98-107) Carbon Dioxide Level 21 mmol/L (21-32) Anion Gap 14 (6-14) Blood Urea Nitrogen 41 mg/dL (7-20) Creatinine 4.0 mg/dL (0.6-1.0) Estimated GFR (Cockcroft-Gault) 11.1 BUN/Creatinine Ratio 10 (6-20) Glucose Level 146 mg/dL (70-99) Calcium Level 7.1 mg/dL (8.5-10.1) Total Bilirubin 6.9 mg/dL (0.2-1.0) Aspartate Amino Transf (AST/SGOT) 36 U/L (15-37) Alanine Aminotransferase (ALT/SGPT) 19 U/L (14-59) Alkaline Phosphatase 113 U/L (46-116) Total Protein 6.5 g/dL (6.4-8.2) Albumin 1.8 g/dL (3.4-5.0) Albumin/Globulin Ratio 0.4 (1.0-1.7) Assessment and Plan Assessmemt and Plan Problems Medical Problems: (1) Sepsis Status: Acute Comment Review of Relevant I have reviewed the following items chilo (where applicable) has been applied. Medications: Current Medications Medications (Trade) Dose Ordered Sig/Ramya Route PRN Reason Start Time Stop Time Status Last Admin Dose Admin Albumin Human 100 ml @ 100 mls/hr 1X ONCE IV 01/09/21 12:00 01/09/21 12:59 DC 01/09/21 12:00 Albumin Human 100 ml @ 100 mls/hr 1X ONCE IV 01/09/21 12:15 01/09/21 13:14 DC 01/09/21 13:12 Sodium Chloride 1,000 ml @ 75 mls/hr [id number] IV 01/09/21 13:00 01/10/21 04:10 Sodium Polystyrene Sulfonate (Kayexalate) 15 gm 1X ONCE PO 01/09/21 18:00 01/09/21 18:01 DC 01/09/21 18:46 Sodium Polystyrene Sulfonate (Kayexalate) 15 gm 1X ONCE PO 01/10/21 07:00 01/10/21 07:01 DC 01/10/21 09:23 Cefazolin Sodium (Ancef) 1 gm DAILY IVP 01/10/21 11:00 01/10/21 09:37 Justifications for Admission Other Justification Cirrhosis, abdominal ascites, UTI ANNA VELASQUEZ MD Jan 10, 2021 11:37
--- NOTE | 2021-01-10 11:59 | PDOC ---
Renal-Progress Notes Subjective Notes Notes NO NEW COMPLAINTS History of Present Illness Hx of present illness WORSENING URVASHI Vitals Vitals Vital Signs Date Time Temp Pulse Resp B/P (MAP) Pulse Ox O2 Delivery O2 Flow Rate FiO2 01/10/21 11:00 97.7 70 16 125/77 (93) 98 Room Air 97.7 01/10/21 03:23 2.0 Weight Weight [ ] I.O. Intake and Output Intake and Output 01/10/21 07:00 Intake Total 2420 ml Output Total 5500 ml Balance -3080 ml Intake Oral 820 ml IV Total 1600 ml Drainage Total 5500 ml # Bowel Movements 4 Labs Labs Laboratory Tests Test 01/10/21 04:00 Sodium Level 120 mmol/L (136-145) Potassium Level 6.2 mmol/L (3.5-5.1) Chloride Level 85 mmol/L (98-107) Carbon Dioxide Level 21 mmol/L (21-32) Anion Gap 14 (6-14) Blood Urea Nitrogen 41 mg/dL (7-20) Creatinine 4.0 mg/dL (0.6-1.0) Estimated GFR (Cockcroft-Gault) 11.1 BUN/Creatinine Ratio 10 (6-20) Glucose Level 146 mg/dL (70-99) Calcium Level 7.1 mg/dL (8.5-10.1) Total Bilirubin 6.9 mg/dL (0.2-1.0) Aspartate Amino Transf (AST/SGOT) 36 U/L (15-37) Alanine Aminotransferase (ALT/SGPT) 19 U/L (14-59) Alkaline Phosphatase 113 U/L (46-116) Total Protein 6.5 g/dL (6.4-8.2) Albumin 1.8 g/dL (3.4-5.0) Albumin/Globulin Ratio 0.4 (1.0-1.7) Micro Micro Microbiology 01/06/21 Blood Culture - Preliminary, Resulted NO GROWTH AFTER 3 DAYS 01/05/21 Gram Stain - Final, Complete 01/05/21 Aerobic and Anaerobic Culture - Final, Complete Review of Systems Constitutional: yes: weakness, alert, oriented Ears/Nose/Throat: Yes: no symptom reported Eyes: Yes: no symptom reported Pulmonary: Yes no symptom reported Cardiovascular: Yes no symptom reported Genitourinary: Yes: no symptom reported Musculoskeletal: Yes: muscle stiffness Skin: Yes no symptom reported Psychiatric/Neurological: Yes: no symptom reported Endocrine: Yes: no symptom reported Physical Exam General Appearance: no apparent distress Skin: warm Respiratory: decreased breath sounds Heart: S1S2 Abdomen: soft, distension Genitourinary: bladder flat, acevedo catheter Extremities: pulses present, no edema Neurology: alert Assessment Assessment IMP URVASHI WITH CR UP TO 4.03.2-MULTIFACTORIAL FROM DECREASED RBF AND CAN-NO CKD MSSA BACTEREMIA SEPSIS UTI HEP CIRRHOSIS FROM ETOH ABUSE S/P LARGE VOLUME PARACENTESIS TWICE HYPERKALEMIA HYPONATREMIA PLAN POSSIBLE HEPATORENAL BUT CAN MOST LIKELY CAN ALBUMIN INFUSION SALINE INFUSION ANTIBIOTICS KAYEXALATE GIVEN TWICE YESTERDAY MAY NEED 3% SALINE URINE STUDIES AND OSMOLALITY PENDING DESTIN PENDING CORRECTION OF ELECTROLYTES PLACED ACEVEDO WITH NO UO NOTED WILL NEED HD D/W BROTHER DOREEN WHO WISHES TO FOLLOW WITH HD PT ALSO AGREEABLE WILL PLAN FOR IR TO PLACE TEMP LINE TODAY WILL PLAN FOR HD AFTERWARDS GOAL IS FOR CLEARANCE-NO UF TODAY WILL PROB NEED HD AGAIN TOMORROW LOOK FOR RENAL RECOVERY WILL FOLLOW JOHN AYALA MD Jan 10, 2021 11:59
[2021-01-10] MEDS ORDERED: ALBUMIN HUMAN 25% 200 ML IV PRN (12:30)
[2021-01-10] MEDS ORDERED: SODIUM CHLORIDE 3 % 150 ML IV ONE (12:30)
[2021-01-10] MEDS ORDERED: IV NORMAL SALINE 1000ML BAG 1,000 ML IV PRN ×2 (12:30)
[2021-01-10] MEDS ORDERED: DIALYSIS PATIENT. MC PRN ×2 (13:15)
[2021-01-10 15:56] LABS: POTASSIUM 3.4 mmol/L (3.5-5.1)
--- NOTE | 2021-01-10 16:04 | RAD ---
Procedure: Temporary hemodialysis catheter placement under fluoroscopy Clinical Indication: Adult female requiring central venous access for hemodialysis Sedation: Local anesthesia only. Antibiotics: None Fluoro Time: 0.1 minutes, images: 1 Contrast: None Sterility: All elements of maximal sterile barrier technique including the use of a cap, mask, sterile gown, sterile gloves, large sterile sheet, appropriate hand hygiene, and 2% chlorhexidine for cutaneous antisepsis (or acceptable alternative antiseptic per current guidelines) were followed for this procedure. Consent: The procedure was explained in its entirety to the patient or the patients designated national sales representative by a member of the treatment team, including a discussion of the risks, benefits and commonly accepted alternatives to the procedure, as well as the expected consequences of no therapy whatsoever. Discussion of the risks included, but was not limited to, those that are most frequent and those that are rare but possibly severe or life-threatening, as well as the possibility of unforeseen complications. Technique and Findings: Following informed consent, the patient was prepped and draped in the usual sterile fashion. Ultrasound interrogation of the right neck revealed patency and compressibility of the right internal jugular vein. A 21-gauge micropuncture needle was used to gain access to this vein after 1% Lidocaine was used to achieve local anesthesia. A hardcopy ultrasound image was recorded. The needle was exchanged over a wire for serial dilators followed by a 20 cm Schon temporary hemodialysis catheter which was deployed under fluoroscopic guidance such that the distal tip resided in the mid right atrium. The catheter flow rates were assessed manually and found to be excellent. The catheter was then flushed, packed with Heparin, capped, and sutured to the skin. Complications: No immediate Impression: 1. Ultrasound and fluoroscopic guided placement of a temporary hemodialysis catheter which exhibits excellent manual flow rates as described.
[2021-01-10] MEDS ORDERED: POTASSIUM CHLORIDE 10 MEQ TABLET.ER. PO ONE (17:00)
[2021-01-10] MEDS: IBUPROFEN 400 MG TABLET. PO PRN ×2 (17:16→23:40)
[2021-01-10 19:00] VITALS: BP 110/58
[2021-01-10 23:00] VITALS: BP 96/62
[2021-01-11] VITALS (10 sets, daily range): BP systolic 95–124; BP diastolic 48–74
[2021-01-11 04:42] LABS: BASO # 0.1 x10^3/uL (0.0-0.2); BASO % 1 % (0-3); EOS # 0.1 x10^3/uL (0.0-0.7); EOS % 1 % (0-3); HEMATOCRIT 26.7 % (36.0-47.0); HEMOGLOBIN 9.1 g/dL (12.0-15.5); LYMPH # 1.4 x10^3/uL (1.0-4.8); LYMPH % 13 % (24-48); MEAN CORPUSCULAR HEMOGLOBIN 34 pg (25-35); MEAN CORPUSCULAR HGB CONC 34 g/dL (31-37); MEAN CORPUSCULAR VOLUME 100 fL (79-100); MONO # 0.9 x10^3/uL (0.0-1.1); MONO % 8 % (0-9); NEUT # 8.3 x10^3/uL (1.8-7.7); NEUT % 78 % (31-73); PLATELET COUNT 262 x10^3/uL (140-400); RED BLOOD COUNT 2.66 x10^6/uL (3.50-5.40); RED CELL DISTRIBUTION WIDTH 13.7 % (11.5-14.5); WHITE BLOOD COUNT 10.7 x10^3/uL (4.0-11.0)
[2021-01-11] MEDS: IV NORMAL SALINE 1000ML BAG 1,000 ML IV SCH ×2 (05:00→14:52)
[2021-01-11 05:46] LABS: CALCIUM 7.6 mg/dL (8.5-10.1); GFR 15.5; MAGNESIUM 2.3 mg/dL (1.8-2.4); PHOSPHORUS 4.8 mg/dL (2.6-4.7)
[2021-01-11] MEDS ORDERED: MORPHINE SULFATE 2 MG/ML VIAL. IVP PRN (06:00)
[2021-01-11] MEDS ORDERED: fentaNYL PF VIAL 100 MCG/2 ML VIAL IVP PRN ×2 (06:00)
[2021-01-11] MEDS ORDERED: HYDROmorphone 2 MG/ML VIAL IVP PRN (06:00)
[2021-01-11] MEDS ORDERED: PROCHLORPERAZINE 10 MG/2 ML VIAL. IVP PRN (06:00)
[2021-01-11] MEDS ORDERED: IV RINGERS,LACTATED 1000ML 1,000 ML IV SCH (06:00)
[2021-01-11] MEDS: LACTOBACILLUS RHAMNOSUS GG 1 CAPSULE. PO SCH ×2 (07:08→20:40)
[2021-01-11] MEDS: CHOLECALCIFEROL (VITAMIN D3) 5,000 UNIT CAPSULE PO SCH (07:08)
[2021-01-11] MEDS: VITAMIN B12,B9,B6 COMPLEX 1 TABLET. PO SCH (07:08)
[2021-01-11] MEDS: HEPARIN for SUB-Q USE 5,000 UNIT/ML VIAL. SQ SCH ×2 (07:11→20:50)
[2021-01-11] MEDS: PANTOPRAZOLE IV PUSH 40 MG VIAL. IVP SCH (07:30)
[2021-01-11] MEDS ORDERED: LIDOCAINE 2% VISCOUS 15 ML SOLUTION. SWSW ONE (07:45)
[2021-01-11] MEDS ORDERED: BENZOCAINE ONE 20% MUCOSAL SPRAY. MM (07:45)
[2021-01-11] MEDS ORDERED: LIDOCAINE 2% TOPICAL JELLY 30GM TUBE. TP ONE ×3 (07:45→13:10)
[2021-01-11] MEDS: ceFAZolin SODIUM IV Push 1 GM VIAL. IVP SCH (09:00)
--- NOTE | 2021-01-11 09:25 | PDOC ---
Infectious Disease Note Subjective: Subjective Pt c/o dry mouth, abdominal distension and abdominal discomfort has improved a little bit since paracentesis Denies fever or chills,nausea or vomiting no UO awaiting DESTIN later today Vital Signs: Vital Signs Vital Signs Date Time Temp Pulse Resp B/P (MAP) Pulse Ox O2 Delivery O2 Flow Rate FiO2 01/11/21 07:00 98.1 92 16 101/57 (72) 97 Room Air 98.1 01/11/21 03:00 2.0 Physical Exam: PHYSICAL EXAM GENERAL: alert, thin, smiling HEENT: Pupils equally round, normal conjunctivae, mild icterus. Oral cavity, pink. No lesions seen. NECK: Supple. LUNGS: Diminished aeration at the bases. No accessory muscle use. HEART: Normal S1, S2. No murmur appreciated. ABDOMEN: Distended, taut, mildly tender with bowel sounds present. Umbilical hernia noted. EXTREMITIES: No gross edema or cyanosis. SKIN: Warm to touch. No signs of rash. NEUROLOGIC: Alert, answering questions appropriately. Peripheral IV looks okay. Medications: Inpatient Meds: Medications reviewed. Labs: Lab Laboratory Tests Test 01/10/21 13:45 01/10/21 15:35 01/11/21 03:58 Hepatitis B Surface Antigen Nonreactive (Nonreactive) Hepatitis B Surface Antibody Nonreactive Sodium Level 137 mmol/L (136-145) 133 mmol/L (136-145) Potassium Level 3.4 mmol/L (3.5-5.1) 5.0 mmol/L (3.5-5.1) White Blood Count 10.7 x10^3/uL (4.0-11.0) Red Blood Count 2.66 x10^6/uL (3.50-5.40) Hemoglobin 9.1 g/dL (12.0-15.5) Hematocrit 26.7 % (36.0-47.0) Mean Corpuscular Volume 100 fL (79-100) Mean Corpuscular Hemoglobin 34 pg (25-35) Mean Corpuscular Hemoglobin Concent 34 g/dL (31-37) Red Cell Distribution Width 13.7 % (11.5-14.5) Platelet Count 262 x10^3/uL (140-400) Neutrophils (%) (Auto) 78 % (31-73) Lymphocytes (%) (Auto) 13 % (24-48) Monocytes (%) (Auto) 8 % (0-9) Eosinophils (%) (Auto) 1 % (0-3) Basophils (%) (Auto) 1 % (0-3) Neutrophils # (Auto) 8.3 x10^3/uL (1.8-7.7) Lymphocytes # (Auto) 1.4 x10^3/uL (1.0-4.8) Monocytes # (Auto) 0.9 x10^3/uL (0.0-1.1) Eosinophils # (Auto) 0.1 x10^3/uL (0.0-0.7) Basophils # (Auto) 0.1 x10^3/uL (0.0-0.2) Chloride Level 96 mmol/L (98-107) Carbon Dioxide Level 28 mmol/L (21-32) Anion Gap 9 (6-14) Blood Urea Nitrogen 23 mg/dL (7-20) Creatinine 3.0 mg/dL (0.6-1.0) Estimated GFR (Cockcroft-Gault) 15.5 Glucose Level 105 mg/dL (70-99) Calcium Level 7.6 mg/dL (8.5-10.1) Phosphorus Level 4.8 mg/dL (2.6-4.7) Magnesium Level 2.3 mg/dL (1.8-2.4) Micro Micro Final GROWTH OF GRAM POSITIVE COCCI FINAL ID= [STAPHYLOCOCCUS AUREUS] STAPHYLOCOCCUS AUREUS ANTIMICROBIAL SUSCEPTIBILITY Final Comment POS ISSAC TYPE 38 STAPHYLOCOCCUS AUREUS ANTIBIOTIC RESULT INTERPRETATION AZITHROMYCIN <=2 S CLINDAMYCIN <=0.25 S CEFOXITIN SCREEN <=4 NEG CIPROFLOXACIN <=1 S CEFTAROLINE <=0.5 S DAPTOMYCIN <=0.5 S ERYTHROMYCIN <=0.25 S GENTAMICIN <=4 S LINEZOLID 2 S LEVOFLOXACIN <=1 S OXACILLIN <=0.25 S PENICILLIN >2 Hyun RIFAMPIN <=1 S TRIMETHOPRIM/SULFAMETHOXAZOLE <=0.5/9.5 S TETRACYCLINE <=4 S VANCOMYCIN 1 S LINN: 01/05/21-0845 STATUS: RES REQ #: [id number] ABDOMINAL FLUID GRAM STAIN Final Final NO ORGANISMS SEEN. SQUAMOUS EPI CELL:NOT APPLICABLE PMN (WBCs):RARE ANAEROBIC-AEROBIC CULTURE Preliminary Preliminary No Growth on 01/06/21 at 0958 No Growth on 01/07/21 at 1038 Unless otherwise specified, Testing Performed by: [facility] [address] [place] [address] For Inquires, the Physician may contact the Microbiology department at [phone] 2D echo The left ventricular systolic function is normal and the ejection fraction is within normal range. The Ejection Fraction is 55%. There is normal LV segmental wall motion. The mitral valve is mildly thickened. The mitral valve appears thickened but no clear vegetation noted. If there is high clinical suspicion for endocarditis, consider DESTIN. Objective: Assessment: MSSA sepsis from 01/03/2021. MSSA peritonitis from 12/05/2020. Repeat paracentesis on 01/05/2021 also indicative peritonitis with 1100 wbc's. -Cult neg so far -Repeat paracentesis 01/09/2021 Leukocytosis. Alcoholic liver disease with recurrent ascites. Umbilical hernia. Weight loss. Coagulopathy Hyponatremia, Abd wall hernia containing SB COVID negative 01/04 URVASHI s/p temporary HDC ( 01/10) Plan: Plan of Care Cont cefazolin, renal dosing ( 01/11) hold picc line placement for now Repeat BC 01/06 neg so far Peritoneal fluid cultures negative so far Echo results noted Follow-up DESTIN,scheduled for 01/11 Monitor lab values and temp monitor abdo distention closely Supportive care CJ HUMPHRIES MD Jan 11, 2021 09:25
--- NOTE | 2021-01-11 10:45 | PDOC ---
Date of Service: DATE: 01/11/21 TIME: 10:36 Subjective: Subjective: Brother present, says PCP has recommended transfer to for transplant eval. He called Dr. Crystal's nurse at this morning. She wants to go home, is thirsty. Objective: Vital Signs: Vital Signs Date Time Temp Pulse Resp B/P (MAP) Pulse Ox O2 Delivery O2 Flow Rate FiO2 01/11/21 07:00 98.1 92 16 101/57 (72) 97 Room Air 98.1 01/11/21 03:00 2.0 Labs: Laboratory Tests Test 01/10/21 13:45 01/10/21 15:35 01/11/21 03:58 Hepatitis B Surface Antigen Nonreactive Hepatitis B Surface Antibody Nonreactive Sodium Level 137 mmol/L 133 mmol/L Potassium Level 3.4 mmol/L 5.0 mmol/L White Blood Count 10.7 x10^3/uL Red Blood Count 2.66 x10^6/uL Hemoglobin 9.1 g/dL Hematocrit 26.7 % Mean Corpuscular Volume 100 fL Mean Corpuscular Hemoglobin 34 pg Mean Corpuscular Hemoglobin Concent 34 g/dL Red Cell Distribution Width 13.7 % Platelet Count 262 x10^3/uL Neutrophils (%) (Auto) 78 % Lymphocytes (%) (Auto) 13 % Monocytes (%) (Auto) 8 % Eosinophils (%) (Auto) 1 % Basophils (%) (Auto) 1 % Neutrophils # (Auto) 8.3 x10^3/uL Lymphocytes # (Auto) 1.4 x10^3/uL Monocytes # (Auto) 0.9 x10^3/uL Eosinophils # (Auto) 0.1 x10^3/uL Basophils # (Auto) 0.1 x10^3/uL Chloride Level 96 mmol/L Carbon Dioxide Level 28 mmol/L Anion Gap 9 Blood Urea Nitrogen 23 mg/dL Creatinine 3.0 mg/dL Estimated GFR (Cockcroft-Gault) 15.5 Glucose Level 105 mg/dL Calcium Level 7.6 mg/dL Phosphorus Level 4.8 mg/dL Magnesium Level 2.3 mg/dL PE: GEN: NAD LUNGS: CTAB HEART: RRR ABD: distended, ascites - stable, protruding hernia NEURO/PSYCH: forgetful, friendly A/P: MSSA bacteremia, mitral valve thickening Cirrhosis (alcohol - sober since 11/17/20), recurrent ascites (last paracentesis 01/09 5.5L), ?hepatorenal syndrome - with most recent labs MELD (on HD, including Na) is 32 ACD Abd wall hernia containing SB - poor surgical candidate COVID negative 01/04 -- DESTIN today. Family requesting transfer to for transplant eval. Primary aware. 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 Justicifation of Admission Dx: Justifications for Admission: Justification of Admission Dx: N/A KATHIE CLEMENTS Jan 11, 2021 10:45
--- NOTE | 2021-01-11 11:38 | PDOC ---
[employer] PROGRESS NOTE Date of Service DOS: DATE: 01/11/21 TIME: 11:31 Chief Complaint Chief Complaint sepsis UTI MSSA bacteremia, abd ascites, hepatic cirrhosis, liver disease from EtOH abuse for years, MELD 19 now 35 s/p paracentesis URVASHI due to vasomotor nephropathy, possible hepatorenal syndrome Acute electrolyte derangementhyperkalemia, hyponatremia Hyperbilirubinemia Severe protein malnutrition IR consult for temporary dialysis catheter placement Nephrology consult Hold diuretics Avoid nephrotoxic agents Pending DESTIN planned for History of Present Illness History of Present Illness 01/11/2021 No acute events overnight. Patient did get a temp HD catheter placed and had dialysis. Electrolytes are improved. Pending DESTIN today. Will discuss with [facility] for possible placing the patient on transplant list. Patient's chart, labs, images were reviewed and discussed with RN 01/09/2021 No acute events overnight. Patient appears to be refractory to diuresis. URVASHI today and some hyperkalemia. Nephrology is consulted. Pending paracentesis. Pending DESTIN. Patient's chart, labs, images were reviewed and discussed with RN 01/08/2021 No acute events overnight. Patient seen and examined bedside. Patient did have an episode of vomiting that required IV antiemetics. Patient's abdominal distention also worsening. Will defer to GI for possible repeat paracentesis before discharge. Advance care planning: A total time of > 17 minutes was spent from 1130 to 1150 face to face in discussion with the patient and family regarding their goals of care, transplantation, hospice. As of now, there is no final decision of whether the patient wants to go through transplant evaluation or hospice care. Detailed instructions and goals were discussed with the brother and sister regarding strict I's and O's, daily weights, low-sodium diet and fluid restriction. Patient will also need to consider being on diuretics and repeat routine paracentesis until a definitive transplant plan can be laid out for them. They have been following with manager french Dr. Crystal at [facility] in the past but was lost to follow-up mainly because the patient relapsed into drinking alcohol again. According to the brother the patient has been sober for the last 2 months and felt that it would be a good time to reconsider the transplant route. 01/07 ID consult following, narrowed abx to Nafcillin repeat cx pending echo ordered, May need PICC and IV abx, pt thinks she feels well for DC, need coordination for ID and the abx blood cx showed Gm pos cocci, yesterdaay, VANCOmycin dosed, now today, MSSA pos cult. panchal sens. will stop the vanc, order echo, consult ID, severe malntrition paracentesis yesterday, cont current, that cx is pending, the PMN count is < 250, not likely SBP, risk of secondary staph infection is high Vitals/I&O Vitals/I&O: Vital Signs Date Time Temp Pulse Resp B/P (MAP) Pulse Ox O2 Delivery O2 Flow Rate FiO2 01/11/21 08:00 Nasal Cannula 2.0 01/11/21 07:00 98.1 92 16 101/57 (72) 97 98.1 I & O 01/10/21 01/10/21 01/11/21 15:00 23:00 07:00 Intake Total 180 ml 0 ml Output Total 200 ml 200 ml Balance -20 ml -200 ml Physical Exam Physical Exam: GENERAL: alert, thin, smiling HEENT: Pupils equally round, normal conjunctivae, mild icterus. Oral cavity, pink. No lesions seen. NECK: Supple. LUNGS: Diminished aeration at the bases. No accessory muscle use. HEART: Normal S1, S2. No murmur appreciated. ABDOMEN: Distended, taut, mildly tender with bowel sounds present. Umbilical hernia noted. EXTREMITIES: No gross edema or cyanosis. SKIN: Warm to touch. No signs of rash. NEUROLOGIC: Alert, answering questions appropriately. Peripheral IV looks okay. General: Alert, Oriented X3, Cooperative, No acute distress Heart: Regular rate Lungs: Clear Abdomen: Normal bowel sounds, Other (DISTENDED) Extremities: No edema Skin: No rashes Labs Labs: Laboratory Tests Test 01/10/21 13:45 01/10/21 15:35 01/11/21 03:58 Hepatitis B Surface Antigen Nonreactive (Nonreactive) Hepatitis B Surface Antibody Nonreactive Sodium Level 137 mmol/L (136-145) 133 mmol/L (136-145) Potassium Level 3.4 mmol/L (3.5-5.1) 5.0 mmol/L (3.5-5.1) White Blood Count 10.7 x10^3/uL (4.0-11.0) Red Blood Count 2.66 x10^6/uL (3.50-5.40) Hemoglobin 9.1 g/dL (12.0-15.5) Hematocrit 26.7 % (36.0-47.0) Mean Corpuscular Volume 100 fL (79-100) Mean Corpuscular Hemoglobin 34 pg (25-35) Mean Corpuscular Hemoglobin Concent 34 g/dL (31-37) Red Cell Distribution Width 13.7 % (11.5-14.5) Platelet Count 262 x10^3/uL (140-400) Neutrophils (%) (Auto) 78 % (31-73) Lymphocytes (%) (Auto) 13 % (24-48) Monocytes (%) (Auto) 8 % (0-9) Eosinophils (%) (Auto) 1 % (0-3) Basophils (%) (Auto) 1 % (0-3) Neutrophils # (Auto) 8.3 x10^3/uL (1.8-7.7) Lymphocytes # (Auto) 1.4 x10^3/uL (1.0-4.8) Monocytes # (Auto) 0.9 x10^3/uL (0.0-1.1) Eosinophils # (Auto) 0.1 x10^3/uL (0.0-0.7) Basophils # (Auto) 0.1 x10^3/uL (0.0-0.2) Chloride Level 96 mmol/L (98-107) Carbon Dioxide Level 28 mmol/L (21-32) Anion Gap 9 (6-14) Blood Urea Nitrogen 23 mg/dL (7-20) Creatinine 3.0 mg/dL (0.6-1.0) Estimated GFR (Cockcroft-Gault) 15.5 Glucose Level 105 mg/dL (70-99) Calcium Level 7.6 mg/dL (8.5-10.1) Phosphorus Level 4.8 mg/dL (2.6-4.7) Magnesium Level 2.3 mg/dL (1.8-2.4) Assessment and Plan Assessmemt and Plan Problems Medical Problems: (1) Sepsis Status: Acute Comment Review of Relevant I have reviewed the following items chilo (where applicable) has been applied. Medications: Current Medications Medications (Trade) Dose Ordered Sig/Ramya Route PRN Reason Start Time Stop Time Status Last Admin Dose Admin Albumin Human 200 ml @ 200 mls/hr 1X PRN PRN IV Hypotension 01/10/21 12:30 01/10/21 18:29 DC 01/10/21 14:17 Potassium Chloride (Klor-Con) 10 meq 1X ONCE PO 01/10/21 17:00 01/10/21 17:01 DC 01/10/21 17:16 Justifications for Admission Other Justification Cirrhosis, abdominal ascites, UTI ANNA VELASQUEZ MD Jan 11, 2021 11:38
--- NOTE | 2021-01-11 12:23 | PDOC ---
Renal-Progress Notes Subjective Notes Notes NO COMPLAINTS History of Present Illness Hx of present illness STABLE Vitals Vitals Vital Signs Date Time Temp Pulse Resp B/P (MAP) Pulse Ox O2 Delivery O2 Flow Rate FiO2 01/11/21 11:00 97.8 97 18 110/59 (76) 98 Room Air 97.8 01/11/21 08:00 2.0 Weight Weight [ ] I.O. Intake and Output Intake and Output 01/11/21 07:00 Intake Total 180 ml Output Total 400 ml Balance -220 ml Intake Oral 180 ml Output Urine Total 200 ml Emesis 200 ml # Bowel Movements 4 Labs Labs Laboratory Tests Test 01/10/21 13:45 01/10/21 15:35 01/11/21 03:58 Hepatitis B Surface Antigen Nonreactive (Nonreactive) Hepatitis B Surface Antibody Nonreactive Sodium Level 137 mmol/L (136-145) 133 mmol/L (136-145) Potassium Level 3.4 mmol/L (3.5-5.1) 5.0 mmol/L (3.5-5.1) White Blood Count 10.7 x10^3/uL (4.0-11.0) Red Blood Count 2.66 x10^6/uL (3.50-5.40) Hemoglobin 9.1 g/dL (12.0-15.5) Hematocrit 26.7 % (36.0-47.0) Mean Corpuscular Volume 100 fL (79-100) Mean Corpuscular Hemoglobin 34 pg (25-35) Mean Corpuscular Hemoglobin Concent 34 g/dL (31-37) Red Cell Distribution Width 13.7 % (11.5-14.5) Platelet Count 262 x10^3/uL (140-400) Neutrophils (%) (Auto) 78 % (31-73) Lymphocytes (%) (Auto) 13 % (24-48) Monocytes (%) (Auto) 8 % (0-9) Eosinophils (%) (Auto) 1 % (0-3) Basophils (%) (Auto) 1 % (0-3) Neutrophils # (Auto) 8.3 x10^3/uL (1.8-7.7) Lymphocytes # (Auto) 1.4 x10^3/uL (1.0-4.8) Monocytes # (Auto) 0.9 x10^3/uL (0.0-1.1) Eosinophils # (Auto) 0.1 x10^3/uL (0.0-0.7) Basophils # (Auto) 0.1 x10^3/uL (0.0-0.2) Chloride Level 96 mmol/L (98-107) Carbon Dioxide Level 28 mmol/L (21-32) Anion Gap 9 (6-14) Blood Urea Nitrogen 23 mg/dL (7-20) Creatinine 3.0 mg/dL (0.6-1.0) Estimated GFR (Cockcroft-Gault) 15.5 Glucose Level 105 mg/dL (70-99) Calcium Level 7.6 mg/dL (8.5-10.1) Phosphorus Level 4.8 mg/dL (2.6-4.7) Magnesium Level 2.3 mg/dL (1.8-2.4) Micro Micro Microbiology 01/06/21 Blood Culture - Preliminary, Resulted NO GROWTH AFTER 4 DAYS 01/05/21 Gram Stain - Final, Complete 01/05/21 Aerobic and Anaerobic Culture - Final, Complete Review of Systems Constitutional: yes: weakness, alert, oriented Ears/Nose/Throat: Yes: no symptom reported Eyes: Yes: no symptom reported Pulmonary: Yes no symptom reported Cardiovascular: Yes no symptom reported Genitourinary: Yes: no symptom reported Musculoskeletal: Yes: muscle stiffness Skin: Yes no symptom reported Psychiatric/Neurological: Yes: no symptom reported Endocrine: Yes: no symptom reported Physical Exam General Appearance: no apparent distress Skin: warm Respiratory: decreased breath sounds Heart: S1S2 Abdomen: soft, distension Genitourinary: bladder flat, acevedo catheter Extremities: pulses present, no edema Neurology: alert Assessment Assessment IMP URVASHI PROB CONTRAST RELATED MSSA BACTEREMIA SEPSIS UTI HEP CIRRHOSIS FROM ETOH ABUSE S/P LARGE VOLUME PARACENTESIS TWICE HYPERKALEMIA HYPONATREMIA PLAN POSSIBLE HEPATORENAL BUT CAN MOST LIKELY CAN ALBUMIN INFUSION NEEDED SALINE INFUSION ANTIBIOTICS DESTIN PENDING MONITOR FOR RENAL RECOVERY PROB HD AGAIN TOMORROW JOHN AYALA MD Jan 11, 2021 12:23
[2021-01-11] MEDS ORDERED: LIDOCAINE 2% VISCOUS 15 ML SOLUTION. ONE (12:46)
[2021-01-11] MEDS ORDERED: BENZOCAINE ONE 20% MUCOSAL SPRAY. (12:46)
[2021-01-11] MEDS ORDERED: PROPOFOL 10 MG/ML (20ML) VIAL. IV ONE (13:02)
[2021-01-11] MEDS ORDERED: LIDOCAINE 2% PF 5 ML VIAL. ONE (13:02)
--- NOTE | 2021-01-11 15:14 | CARD ---
MR#: [id number] Date of Study: 01/11/2021 Ordering Physician: JOSE DANIEL DILLON, Referring Physician: JOSE DANIEL DILLON Tech: Christine Coley RDCS APPROVED REPORT EXAM: Transesophageal echocardiogram with color flow Doppler. INDICATION Infection:Rule out subacute bacterial endocarditis Bacteremia Reason For Test : Rule out endocarditis. PROCEDURE After obtaining informed consent, patient underwent transesophageal echo in the PACU. Type of Sedation : General Anesthesia Sedation was administered by Enedina Harris CRNA. Sedation was achieved with Propofol 80 mg intravenously. Transesophageal probe was inserted and advanced into esophagus by Lloyd Lux MD. The DESTIN was performed without complications. Throughout the procedure, the blood pressure, pulse oximetry, cardiac rhythm, and rate were monitored . The patient tolerated the procedure without adverse effects. Recovery from general anesthesia was une ventful and vital signs were stable. LEFT VENTRICLE The left ventricle is normal size. There is normal left ventricular wall thickness. The left ventricu lar systolic function is normal and the ejection fraction is within normal range. The Ejection Fracti on is 55-60%. There is normal LV segmental wall motion. No left ventricle thrombus noted on this stud y. RIGHT VENTRICLE The right ventricle is normal size. There is normal right ventricular wall thickness. The right ventr icular systolic function is normal. ATRIA The left atrium size is normal. A catheter is seen in the right atrium consistent with history. The i nteratrial septum is intact with no evidence for an atrial septal defect or patent foramen ovale as n oted on 2-D or Doppler imaging. There is no thrombus noted in the left atrial appendage. AORTIC VALVE The aortic valve is calcified but opens well. Doppler and Color Flow revealed no significant aortic r egurgitation. There is no significant aortic valvular stenosis. There is no aortic valvular vegetatio n. MITRAL VALVE The mitral valve is calcified but opens well. There is no evidence of mitral valve prolapse or vegeta tions. There is no mitral valve stenosis. Doppler and Color-flow revealed mild to moderate mitral reg urgitation. TRICUSPID VALVE The tricuspid valve is normal in structure. Doppler and Color Flow revealed mild tricuspid regurgitat ion. There is no tricuspid valve prolapse or vegetation. PULMONIC VALVE The pulmonic valve is not well visualized. Doppler and Color Flow revealed no pulmonic valvular regur gitation. There is no pulmonic valvular stenosis. GREAT VESSELS The aortic root is normal in size. The ascending aorta is normal in size. The pulmonary artery is nor mal. The IVC is normal in size and collapses >50% with inspiration. Critical Notification Critical Value: No <Conclusion> The left ventricular systolic function is normal and the ejection fraction is within normal range. Th e Ejection Fraction is 55-60%. There is normal LV segmental wall motion. A catheter is seen in the right atrium consistent with history. Doppler and Color-flow revealed mild to moderate mitral regurgitation. No evidence of vegetation on this study. Signed by : Lloyd Lux, Electronically Approved : 01/11/2021 15:14:18
--- NOTE | 2021-01-11 15:30 | NUR ---
SS following up with discharge planning. SS reviewed pt chart and discussed with pt RN. Pt is currently requiring oxygen via nasal canula. COVID19 negative. Pt on IV Cefazolin. DESTIN today. Pt started on hemodialysis. Dr. Rodas requesting transfer to for placement on transplant list. SS contacted transfer team, , and spoke with Thomas. SS faxed clinical as requested to [phone]. Images clouded to . SS was notified by thomas in the transfer team that they are at capacity today and have no beds. Thomas requested that they call back tomorrow with request for transfer. Dr. Rodas notified. SS will continue to follow for discharge planning.
[2021-01-12] VITALS (17 sets, daily range): BP systolic 12–140; BP diastolic 63–81
[2021-01-12] MEDS: IBUPROFEN 400 MG TABLET. PO PRN (03:01)
[2021-01-12] MEDS: PANTOPRAZOLE IV PUSH 40 MG VIAL. IVP SCH (06:21)
[2021-01-12] MEDS: IV NORMAL SALINE 1000ML BAG 1,000 ML IV SCH (07:12)
[2021-01-12] MEDS ORDERED: DIALYSIS PATIENT. MC PRN ×2 (07:30)
[2021-01-12] MEDS ORDERED: ALBUMIN HUMAN 25% 200 ML IV PRN (07:30)
[2021-01-12] MEDS ORDERED: IV NORMAL SALINE 1000ML BAG 1,000 ML IV PRN ×2 (07:30)
[2021-01-12 07:51] LABS: BASO # 0.1 x10^3/uL (0.0-0.2); BASO % 1 % (0-3); EOS # 0.1 x10^3/uL (0.0-0.7); EOS % 1 % (0-3); HEMATOCRIT 25.5 % (36.0-47.0); HEMOGLOBIN 8.5 g/dL (12.0-15.5); LYMPH # 1.5 x10^3/uL (1.0-4.8); LYMPH % 13 % (24-48); MEAN CORPUSCULAR HEMOGLOBIN 33 pg (25-35); MEAN CORPUSCULAR HGB CONC 33 g/dL (31-37); MEAN CORPUSCULAR VOLUME 100 fL (79-100); MONO # 0.8 x10^3/uL (0.0-1.1); MONO % 7 % (0-9); NEUT # 9.3 x10^3/uL (1.8-7.7); NEUT % 79 % (31-73); PLATELET COUNT 247 x10^3/uL (140-400); RED BLOOD COUNT 2.55 x10^6/uL (3.50-5.40); RED CELL DISTRIBUTION WIDTH 13.7 % (11.5-14.5); WHITE BLOOD COUNT 11.8 x10^3/uL (4.0-11.0)
[2021-01-12 08:04] LABS: CALCIUM 6.8 mg/dL (8.5-10.1); CREATININE 4.1 mg/dL (0.6-1.0); GFR 10.8; MAGNESIUM 2.2 mg/dL (1.8-2.4); PHOSPHORUS 5.4 mg/dL (2.6-4.7); POTASSIUM 3.8 mmol/L (3.5-5.1)
[2021-01-12] MEDS: LACTOBACILLUS RHAMNOSUS GG 1 CAPSULE. PO SCH ×2 (09:00→21:06)
[2021-01-12] MEDS: HEPARIN for SUB-Q USE 5,000 UNIT/ML VIAL. SQ SCH ×2 (09:00→21:18)
[2021-01-12] MEDS: VITAMIN B12,B9,B6 COMPLEX 1 TABLET. PO SCH (09:00)
[2021-01-12] MEDS: CHOLECALCIFEROL (VITAMIN D3) 5,000 UNIT CAPSULE PO SCH (09:00)
--- NOTE | 2021-01-12 09:10 | NUR ---
Dialysis called and reported patient in A-fib. Dr. Rodas notified.
--- NOTE | 2021-01-12 10:05 | PDOC ---
Infectious Disease Note Subjective: Subjective Patient seen in dialysis unit Complains of abdominal distension and abdominal discomfort Denies fever or chills,nausea or vomiting Vital Signs: Vital Signs Vital Signs Date Time Temp Pulse Resp B/P (MAP) Pulse Ox O2 Delivery O2 Flow Rate FiO2 01/12/21 07:00 98.1 92 16 116/63 (80) 94 Room Air 98.1 01/11/21 19:40 2.0 Physical Exam: PHYSICAL EXAM GENERAL: alert, thin, smiling HEENT: Pupils equally round, normal conjunctivae, mild icterus. Oral cavity, pink. No lesions seen. NECK: Supple. Right temporary HDC catheter present LUNGS: Diminished aeration at the bases. No accessory muscle use. HEART: Normal S1, S2. No murmur appreciated. ABDOMEN: Distended, taut, mildly tender with bowel sounds present. Umbilical hernia noted. EXTREMITIES: No gross edema or cyanosis. SKIN: Warm to touch. No signs of rash. NEUROLOGIC: Alert, answering questions appropriately. Peripheral IV looks okay. Medications: Inpatient Meds: Medications reviewed. Labs: Lab Laboratory Tests Test 01/12/21 07:30 White Blood Count 11.8 x10^3/uL (4.0-11.0) Red Blood Count 2.55 x10^6/uL (3.50-5.40) Hemoglobin 8.5 g/dL (12.0-15.5) Hematocrit 25.5 % (36.0-47.0) Mean Corpuscular Volume 100 fL (79-100) Mean Corpuscular Hemoglobin 33 pg (25-35) Mean Corpuscular Hemoglobin Concent 33 g/dL (31-37) Red Cell Distribution Width 13.7 % (11.5-14.5) Platelet Count 247 x10^3/uL (140-400) Neutrophils (%) (Auto) 79 % (31-73) Lymphocytes (%) (Auto) 13 % (24-48) Monocytes (%) (Auto) 7 % (0-9) Eosinophils (%) (Auto) 1 % (0-3) Basophils (%) (Auto) 1 % (0-3) Neutrophils # (Auto) 9.3 x10^3/uL (1.8-7.7) Lymphocytes # (Auto) 1.5 x10^3/uL (1.0-4.8) Monocytes # (Auto) 0.8 x10^3/uL (0.0-1.1) Eosinophils # (Auto) 0.1 x10^3/uL (0.0-0.7) Basophils # (Auto) 0.1 x10^3/uL (0.0-0.2) Sodium Level 131 mmol/L (136-145) Potassium Level 3.8 mmol/L (3.5-5.1) Chloride Level 95 mmol/L (98-107) Carbon Dioxide Level 20 mmol/L (21-32) Anion Gap 16 (6-14) Blood Urea Nitrogen 33 mg/dL (7-20) Creatinine 4.1 mg/dL (0.6-1.0) Estimated GFR (Cockcroft-Gault) 10.8 Glucose Level 86 mg/dL (70-99) Calcium Level 6.8 mg/dL (8.5-10.1) Phosphorus Level 5.4 mg/dL (2.6-4.7) Magnesium Level 2.2 mg/dL (1.8-2.4) Micro Micro Final GROWTH OF GRAM POSITIVE COCCI FINAL ID= [STAPHYLOCOCCUS AUREUS] STAPHYLOCOCCUS AUREUS ANTIMICROBIAL SUSCEPTIBILITY Final Comment POS ISSAC TYPE 38 STAPHYLOCOCCUS AUREUS ANTIBIOTIC RESULT INTERPRETATION AZITHROMYCIN <=2 S CLINDAMYCIN <=0.25 S CEFOXITIN SCREEN <=4 NEG CIPROFLOXACIN <=1 S CEFTAROLINE <=0.5 S DAPTOMYCIN <=0.5 S ERYTHROMYCIN <=0.25 S GENTAMICIN <=4 S LINEZOLID 2 S LEVOFLOXACIN <=1 S OXACILLIN <=0.25 S PENICILLIN >2 Hyun RIFAMPIN <=1 S TRIMETHOPRIM/SULFAMETHOXAZOLE <=0.5/9.5 S TETRACYCLINE <=4 S VANCOMYCIN 1 S LINN: 01/05/21 STATUS: RES REQ #: [id number] ABDOMINAL FLUID GRAM STAIN Final Final NO ORGANISMS SEEN. SQUAMOUS EPI CELL:NOT APPLICABLE PMN (WBCs):RARE ANAEROBIC-AEROBIC CULTURE final No Growth on 01/06/21 at 0958 No Growth on 01/07/21 at 1038 Unless otherwise specified, Testing Performed by: [address] [address] For Inquires, the Physician may contact the Microbiology department at [phone] 2D echo The left ventricular systolic function is normal and the ejection fraction is within normal range. The Ejection Fraction is 55%. There is normal LV segmental wall motion. The mitral valve is mildly thickened. The mitral valve appears thickened but no clear vegetation noted. If there is high clinical suspicion for endocarditis, consider DESTIN. Objective: Assessment: MSSA bacteremia from 01/03/2021. DESTIN negative for vegetation on 01/11/21 MSSA peritonitis from 12/05/2020. Repeat paracentesis on 01/05/2021 also indicative peritonitis with 1100 wbc's. -Cult neg so far -Repeat paracentesis 01/09/2021 Leukocytosis. Alcoholic liver disease with recurrent ascites. Umbilical hernia. Weight loss. Coagulopathy Hyponatremia, Abd wall hernia containing SB COVID negative 01/04 URVASHI s/p temporary HDC ( 01/10) Plan: Plan of Care Cont cefazolin, renal dosing ( 01/11) hold picc line placement for now Repeat BC 01/06 neg so far Peritoneal fluid cultures negative DESTIN neg Monitor lab values and cultures monitor abdo distention closely, may need repeat paracentesis Supportive care CJ HUMPHRIES MD Jan 12, 2021 10:05
[2021-01-12] MEDS ORDERED: ALBUMIN HUMAN 25% 100 ML IV ONE (10:30)
--- NOTE | 2021-01-12 11:18 | PDOC ---
Date of Service: DATE: 01/12/21 TIME: 11:12 Subjective: Subjective: Abdomen uncomfortable, wants paracentesis. Objective: Objective: D/w nurse - A Fib during dialysis, no word on transfer - no beds yesterday. Vital Signs: Vital Signs Date Time Temp Pulse Resp B/P (MAP) Pulse Ox O2 Delivery O2 Flow Rate FiO2 01/12/21 07:00 98.1 92 16 116/63 (80) 94 Room Air 98.1 01/11/21 19:40 2.0 Labs: Laboratory Tests Test 01/12/21 07:30 White Blood Count 11.8 x10^3/uL Red Blood Count 2.55 x10^6/uL Hemoglobin 8.5 g/dL Hematocrit 25.5 % Mean Corpuscular Volume 100 fL Mean Corpuscular Hemoglobin 33 pg Mean Corpuscular Hemoglobin Concent 33 g/dL Red Cell Distribution Width 13.7 % Platelet Count 247 x10^3/uL Neutrophils (%) (Auto) 79 % Lymphocytes (%) (Auto) 13 % Monocytes (%) (Auto) 7 % Eosinophils (%) (Auto) 1 % Basophils (%) (Auto) 1 % Neutrophils # (Auto) 9.3 x10^3/uL Lymphocytes # (Auto) 1.5 x10^3/uL Monocytes # (Auto) 0.8 x10^3/uL Eosinophils # (Auto) 0.1 x10^3/uL Basophils # (Auto) 0.1 x10^3/uL Sodium Level 131 mmol/L Potassium Level 3.8 mmol/L Chloride Level 95 mmol/L Carbon Dioxide Level 20 mmol/L Anion Gap 16 Blood Urea Nitrogen 33 mg/dL Creatinine 4.1 mg/dL Estimated GFR (Cockcroft-Gault) 10.8 Glucose Level 86 mg/dL Calcium Level 6.8 mg/dL Phosphorus Level 5.4 mg/dL Magnesium Level 2.2 mg/dL Albumin 2.1 g/dL Imaging: DESTIN 01/11 <Conclusion> The left ventricular systolic function is normal and the ejection fraction is within normal range. The Ejection Fraction is 55-60%. There is normal LV segmental wall motion. A catheter is seen in the right atrium consistent with history. Doppler and Color-flow revealed mild to moderate mitral regurgitation. No evidence of vegetation on this study. PE: GEN: dialyzing, was sleeping LUNGS: clear anteriorly HEART: irregular ABD: distended/tight, large hernia NEURO/PSYCH: A & O x 3 A/P: MSSA bacteremia - no vegetation on DESTIN as above Cirrhosis (alcohol - sober since 11/17/20), recurrent ascites (paracentesis 01/05 and 01/09), ?hepatorenal syndrome (getting HD) A Fib - new Abd wall hernia containing SB - poor surgical candidate COVID negative 01/04 -- Will ask for paracentesis again, recheck LFTs and INR, await possible transfer - she has seen hepatology at in the past. Justicifation of Admission Dx: Justifications for Admission: Justification of Admission Dx: N/A KATHIE CLEMENTS Jan 12, 2021 11:18
--- NOTE | 2021-01-12 11:22 | PDOC ---
[employer] PROGRESS NOTE Date of Service DOS: DATE: 01/12/21 TIME: 11:17 Chief Complaint Chief Complaint sepsis UTI MSSA bacteremia, abd ascites, hepatic cirrhosis, liver disease from EtOH abuse for years, MELD 18 now 35 s/p paracentesis URVASHI due to vasomotor nephropathy, possible hepatorenal syndrome Acute electrolyte derangementhyperkalemia, hyponatremia Hyperbilirubinemia Severe protein malnutrition New onset A. fib RVR IR consult today for repeat paracentesis IR consult for temporary dialysis catheter placement Nephrology consult Hold diuretics Avoid nephrotoxic agents Pending DESTIN planned for History of Present Illness History of Present Illness 01/12/2021 No acute events overnight. Patient had new onset atrial fibrillation during her dialysis session today. Cardiology is consulted. Electrolytes are balanced. TSH is ordered. Patient is reaccumulating fluid in her abdomen due to her refractory ascites. IR is consulted. Patient's chart, labs, images were reviewed and discussed with RN 01/11/2021 No acute events overnight. Patient did get a temp HD catheter placed and had dialysis. Electrolytes are improved. Pending DESTIN today. Will discuss with [facility] for possible placing the patient on transplant list. Patient's chart, labs, images were reviewed and discussed with RN 01/09/2021 No acute events overnight. Patient appears to be refractory to diuresis. URVASHI today and some hyperkalemia. Nephrology is consulted. Pending paracentesis. Pending DESTIN. Patient's chart, labs, images were reviewed and discussed with RN 01/08/2021 No acute events overnight. Patient seen and examined bedside. Patient did have an episode of vomiting that required IV antiemetics. Patient's abdominal distention also worsening. Will defer to GI for possible repeat paracentesis before discharge. Advance care planning: A total time of > 17 minutes was spent from 1130 to 1150 face to face in discussion with the patient and family regarding their goals of care, transplantation, hospice. As of now, there is no final decision of whether the patient wants to go through transplant evaluation or hospice care. Detailed instructions and goals were discussed with the brother and sister regarding strict I's and O's, daily weights, low-sodium diet and fluid restriction. Patient will also need to consider being on diuretics and repeat routine paracentesis until a definitive transplant plan can be laid out for them. They have been following with studio control operator Dr. Crystal at [facility] in the past but was lost to follow-up mainly because the patient relapsed into drinking alcohol again. According to the brother the patient has been sober for the last 2 months and felt that it would be a good time to reconsider the transplant route. 01/07 ID consult following, narrowed abx to Nafcillin repeat cx pending echo ordered, May need PICC and IV abx, pt thinks she feels well for DC, need coordination for ID and the abx blood cx showed Gm pos cocci, yesterdaay, VANCOmycin dosed, now today, MSSA pos cult. panchal sens. will stop the vanc, order echo, consult ID, severe malntrition paracentesis yesterday, cont current, that cx is pending, the PMN count is < 250, not likely SBP, risk of secondary staph infection is high Vitals/I&O Vitals/I&O: Vital Signs Date Time Temp Pulse Resp B/P (MAP) Pulse Ox O2 Delivery O2 Flow Rate FiO2 01/12/21 07:00 98.1 92 16 116/63 (80) 94 Room Air 98.1 01/11/21 19:40 2.0 I & O 01/11/21 01/11/21 01/12/21 15:00 23:00 07:00 Intake Total 150 ml 500 ml Balance 150 ml 500 ml Physical Exam Physical Exam: GENERAL: alert, thin, smiling HEENT: Pupils equally round, normal conjunctivae, mild icterus. Oral cavity, pink. No lesions seen. NECK: Supple. Right temporary HDC catheter present LUNGS: Diminished aeration at the bases. No accessory muscle use. HEART: Normal S1, S2. No murmur appreciated. ABDOMEN: Distended, taut, mildly tender with bowel sounds present. Umbilical hernia noted. EXTREMITIES: No gross edema or cyanosis. SKIN: Warm to touch. No signs of rash. NEUROLOGIC: Alert, answering questions appropriately. Peripheral IV looks okay. General: Alert, Oriented X3, Cooperative, No acute distress Heart: Regular rate Lungs: Clear Abdomen: Normal bowel sounds, Other (DISTENDED) Extremities: No edema Skin: No rashes Labs Labs: Laboratory Tests Test 01/12/21 07:30 White Blood Count 11.8 x10^3/uL (4.0-11.0) Red Blood Count 2.55 x10^6/uL (3.50-5.40) Hemoglobin 8.5 g/dL (12.0-15.5) Hematocrit 25.5 % (36.0-47.0) Mean Corpuscular Volume 100 fL (79-100) Mean Corpuscular Hemoglobin 33 pg (25-35) Mean Corpuscular Hemoglobin Concent 33 g/dL (31-37) Red Cell Distribution Width 13.7 % (11.5-14.5) Platelet Count 247 x10^3/uL (140-400) Neutrophils (%) (Auto) 79 % (31-73) Lymphocytes (%) (Auto) 13 % (24-48) Monocytes (%) (Auto) 7 % (0-9) Eosinophils (%) (Auto) 1 % (0-3) Basophils (%) (Auto) 1 % (0-3) Neutrophils # (Auto) 9.3 x10^3/uL (1.8-7.7) Lymphocytes # (Auto) 1.5 x10^3/uL (1.0-4.8) Monocytes # (Auto) 0.8 x10^3/uL (0.0-1.1) Eosinophils # (Auto) 0.1 x10^3/uL (0.0-0.7) Basophils # (Auto) 0.1 x10^3/uL (0.0-0.2) Sodium Level 131 mmol/L (136-145) Potassium Level 3.8 mmol/L (3.5-5.1) Chloride Level 95 mmol/L (98-107) Carbon Dioxide Level 20 mmol/L (21-32) Anion Gap 16 (6-14) Blood Urea Nitrogen 33 mg/dL (7-20) Creatinine 4.1 mg/dL (0.6-1.0) Estimated GFR (Cockcroft-Gault) 10.8 Glucose Level 86 mg/dL (70-99) Calcium Level 6.8 mg/dL (8.5-10.1) Phosphorus Level 5.4 mg/dL (2.6-4.7) Magnesium Level 2.2 mg/dL (1.8-2.4) Albumin 2.1 g/dL (3.4-5.0) Assessment and Plan Assessmemt and Plan Problems Medical Problems: (1) Sepsis Status: Acute Comment Review of Relevant I have reviewed the following items chilo (where applicable) has been applied. Medications: Current Medications Medications (Trade) Dose Ordered Sig/Ramya Route PRN Reason Start Time Stop Time Status Last Admin Dose Admin Albumin Human 100 ml @ 100 mls/hr 1X ONCE IV 01/12/21 10:30 01/12/21 11:29 01/12/21 11:08 Justifications for Admission Other Justification Cirrhosis, abdominal ascites, UTI ANNA VELASQUEZ MD Jan 12, 2021 11:22
[2021-01-12] MEDS ORDERED: METOPROLOL IV PUSH 5 MG/5 ML VIAL. IVP PRN ×2 (11:30→23:45)
--- NOTE | 2021-01-12 11:30 | PDOC ---
Renal-Progress Notes Subjective Notes Notes AWAKE AND ALERT History of Present Illness Hx of present illness NO ACUTE CHANGES Vitals Vitals Vital Signs Date Time Temp Pulse Resp B/P (MAP) Pulse Ox O2 Delivery O2 Flow Rate FiO2 01/12/21 07:00 98.1 92 16 116/63 (80) 94 Room Air 98.1 01/11/21 19:40 2.0 Weight Weight [ ] I.O. Intake and Output Intake and Output 01/12/21 07:00 Intake Total 650 ml Balance 650 ml Intake Oral 500 ml IV Total 150 ml # Voids 2 # Bowel Movements 3 Labs Labs Laboratory Tests Test 01/12/21 07:30 White Blood Count 11.8 x10^3/uL (4.0-11.0) Red Blood Count 2.55 x10^6/uL (3.50-5.40) Hemoglobin 8.5 g/dL (12.0-15.5) Hematocrit 25.5 % (36.0-47.0) Mean Corpuscular Volume 100 fL (79-100) Mean Corpuscular Hemoglobin 33 pg (25-35) Mean Corpuscular Hemoglobin Concent 33 g/dL (31-37) Red Cell Distribution Width 13.7 % (11.5-14.5) Platelet Count 247 x10^3/uL (140-400) Neutrophils (%) (Auto) 79 % (31-73) Lymphocytes (%) (Auto) 13 % (24-48) Monocytes (%) (Auto) 7 % (0-9) Eosinophils (%) (Auto) 1 % (0-3) Basophils (%) (Auto) 1 % (0-3) Neutrophils # (Auto) 9.3 x10^3/uL (1.8-7.7) Lymphocytes # (Auto) 1.5 x10^3/uL (1.0-4.8) Monocytes # (Auto) 0.8 x10^3/uL (0.0-1.1) Eosinophils # (Auto) 0.1 x10^3/uL (0.0-0.7) Basophils # (Auto) 0.1 x10^3/uL (0.0-0.2) Sodium Level 131 mmol/L (136-145) Potassium Level 3.8 mmol/L (3.5-5.1) Chloride Level 95 mmol/L (98-107) Carbon Dioxide Level 20 mmol/L (21-32) Anion Gap 16 (6-14) Blood Urea Nitrogen 33 mg/dL (7-20) Creatinine 4.1 mg/dL (0.6-1.0) Estimated GFR (Cockcroft-Gault) 10.8 Glucose Level 86 mg/dL (70-99) Calcium Level 6.8 mg/dL (8.5-10.1) Phosphorus Level 5.4 mg/dL (2.6-4.7) Magnesium Level 2.2 mg/dL (1.8-2.4) Albumin 2.1 g/dL (3.4-5.0) Micro Micro Microbiology 01/06/21 Blood Culture - Final, Complete NO GROWTH AFTER 5 DAYS 01/05/21 Gram Stain - Final, Complete 01/05/21 Aerobic and Anaerobic Culture - Final, Complete Review of Systems Constitutional: yes: weakness, alert, oriented Ears/Nose/Throat: Yes: no symptom reported Eyes: Yes: no symptom reported Pulmonary: Yes no symptom reported Cardiovascular: Yes no symptom reported Genitourinary: Yes: no symptom reported Musculoskeletal: Yes: muscle stiffness Skin: Yes no symptom reported Psychiatric/Neurological: Yes: no symptom reported Endocrine: Yes: no symptom reported Physical Exam General Appearance: no apparent distress Skin: warm Respiratory: decreased breath sounds Heart: S1S2 Abdomen: soft, distension Genitourinary: bladder flat, acevedo catheter Extremities: pulses present, no edema Neurology: alert Assessment Assessment IMP DYSPNEA URVASHI PROB CONTRAST RELATED MSSA BACTEREMIA SEPSIS UTI HEP CIRRHOSIS FROM ETOH ABUSE S/P LARGE VOLUME PARACENTESIS TWICE HYPERKALEMIA HYPONATREMIA PLAN POSSIBLE HEPATORENAL BUT CAN MOST LIKELY CAN ALBUMIN INFUSION NEEDED STOP SALINE INFUSION ANTIBIOTICS DESTIN PENDING NEG MONITOR FOR RENAL RECOVERY HD TODAY UF MINIMAL TOLERATED LONG D/W BROTHER DOREEN EDMOND HAVE [facility] SHE WILL NEED HER 3RD PARACENTESIS TODAY SINCE ADMISSION STOP PRN NSAIDS RESUME DIURETICS POOR PROGNOSIS WILL FOLLOW JOHN AYALA MD Jan 12, 2021 11:30
[2021-01-12 11:35] LABS: PROTHROMBIN TIME PATIENT 16.7 SEC (11.7-14.0)
[2021-01-12 11:49] LABS: DIRECT BILIRUBIN 1.1 mg/dL (0.0-0.2); TOTAL BILIRUBIN 2.9 mg/dL (0.2-1.0); TOTAL PROTEIN 5.7 g/dL (6.4-8.2)
[2021-01-12 11:53] LABS: ALBUMIN 2.1 g/dL (3.4-5.0)
--- NOTE | 2021-01-12 11:57 | EKG ---
[facility] [address] [place] [address] Test Date: 2021-01-12 Test Time: 11:53:46 Pat Name: JOSIAH GREENBERG Department: Room: 408 Gender: F Admissions Manager: EUFEMIA : [id number] Requested By: SOFI MORENO Order Number: [id number] Reading MD: Measurements Intervals [place] Rate: 119 P: 90 DC: 158 QRS: -12 QRSD: 68 T: -10 QT: 318 QTc: 454 Interpretive Statements SINUS TACHYCARDIA ATRIAL PREMATURE COMPLEX(ES) LEFTWARD AXIS LOW LIMB LEAD VOLTAGE QRS(T) CONTOUR ABNORMALITY CONSISTENT WITH ANTEROSEPTAL INFARCT AGE UNDETERMINED CONSISTENT WITH INFERIOR INFARCT PROBABLY OLD ABNORMAL ECG RI6.02 No previous ECG available for comparison
--- NOTE | 2021-01-12 12:29 | PDOC2 ---
JOSE DANIEL DILLON DIRECTOR OF PARKS AND RECREATION 01/12/21 1229: CARDIAC CONSULT DATE OF CONSULT Date of Consult DATE: 01/12/21 TIME: 12:09 REASON FOR CONSULT Reason for Consult: New onset AFIB REFERRING PHYSICIAN Referring Physician: Clark SOURCE Source: Chart review HISTORY OF PRESENT ILLNESS HISTORY OF PRESENT ILLNESS This is a 70 yo female admitted for complains of abdominal pain and tachycardia. Further evaluation revealed sepsis, advancing liver cirrhosis and severe URVASHI. Denies any chest pain and SOA. She has paracentesis and being treated with antibiotics and no fever currently. She was initially seen by me for DESTIN need and no endocarditis was noted. Pt was noted with irregular rhythm and was suspected for AFIB and requested cardiology consult. She is due to have paracentesis again as her ascites is increasing again and has some SOA. No chest pain and no palpitations. She is currently finishing up her HD. PAST MEDICAL HISTORY Past Medical History Cardiovascular: HTN Heme/Onc: No pertinent hx Hepatobiliary: Cirrhosis Psych: Addictions Rheumatologic: No pertinent hx Infectious disease: No pertinent hx Renal/: No pertinent hx Endocrine: No pertinent hx Dermatology: No pertinent hx PAST SURGICAL HISTORY Past Surgical History: Hernia Repair FAMILY HISTORY Family History noncontributory SOCIAL HISTORY Smoke: Quit ALCOHOL: none Drugs: None Lives: Alone CURRENT MEDICATIONS CURRENT MEDICATIONS Current Medications Medications (Trade) Dose Ordered Sig/Ramya Route PRN Reason Start Time Stop Time Status Last Admin Dose Admin Albumin Human 100 ml @ 100 mls/hr 1X ONCE IV 01/12/21 10:30 01/12/21 11:29 DC 01/12/21 11:08 ALLERGIES ALLERGIES: Coded Allergies: No Known Drug Allergies (Unverified , 01/11/21) ROS Review of System 14 point ROS evaluated with pertinent positives noted per HPI PHYSICAL EXAM General: Alert, Oriented X3, Cooperative, No acute distress HEENT: Atraumatic, Mucous membr. moist/pink Lungs: Other (diminished bases) Heart: Normal S1, Normal S2, No murmurs, Other (SR/ST with PACs per EKG) Abdomen: Soft, Other (ascites) Extremities: No cyanosis Skin: No breakdown Neuro: Normal speech, Sensation intact Psych/Mental Status: Mental status NL, Mood NL MUSCULOSKELETAL: Osteoarthritic changes both hands VITALS/I&O VITALS/I&O: Vital Signs Date Time Temp Pulse Resp B/P (MAP) Pulse Ox O2 Delivery O2 Flow Rate FiO2 01/12/21 07:00 98.1 92 16 116/63 (80) 94 Room Air 98.1 01/11/21 19:40 2.0 I & O 01/11/21 01/11/21 01/12/21 15:00 23:00 07:00 Intake Total 150 ml 500 ml Balance 150 ml 500 ml LABS Lab: Laboratory Tests Test 01/12/21 07:30 01/12/21 08:30 White Blood Count 11.8 x10^3/uL (4.0-11.0) H Red Blood Count 2.55 x10^6/uL (3.50-5.40) L Hemoglobin 8.5 g/dL (12.0-15.5) L Hematocrit 25.5 % (36.0-47.0) L Mean Corpuscular Volume 100 fL (79-100) Mean Corpuscular Hemoglobin 33 pg (25-35) Mean Corpuscular Hemoglobin Concent 33 g/dL (31-37) Red Cell Distribution Width 13.7 % (11.5-14.5) Platelet Count 247 x10^3/uL (140-400) Neutrophils (%) (Auto) 79 % (31-73) H Lymphocytes (%) (Auto) 13 % (24-48) L Monocytes (%) (Auto) 7 % (0-9) Eosinophils (%) (Auto) 1 % (0-3) Basophils (%) (Auto) 1 % (0-3) Neutrophils # (Auto) 9.3 x10^3/uL (1.8-7.7) H Lymphocytes # (Auto) 1.5 x10^3/uL (1.0-4.8) Monocytes # (Auto) 0.8 x10^3/uL (0.0-1.1) Eosinophils # (Auto) 0.1 x10^3/uL (0.0-0.7) Basophils # (Auto) 0.1 x10^3/uL (0.0-0.2) Prothrombin Time 16.7 SEC (11.7-14.0) H Prothrombin Time INR 1.4 (0.8-1.1) H Sodium Level 131 mmol/L (136-145) L Potassium Level 3.8 mmol/L (3.5-5.1) Chloride Level 95 mmol/L (98-107) L Carbon Dioxide Level 20 mmol/L (21-32) L Anion Gap 16 (6-14) H Blood Urea Nitrogen 33 mg/dL (7-20) H Creatinine 4.1 mg/dL (0.6-1.0) H Estimated GFR (Cockcroft-Gault) 10.8 Glucose Level 86 mg/dL (70-99) Calcium Level 6.8 mg/dL (8.5-10.1) L Phosphorus Level 5.4 mg/dL (2.6-4.7) H Magnesium Level 2.2 mg/dL (1.8-2.4) Total Bilirubin 2.9 mg/dL (0.2-1.0) H Direct Bilirubin 1.1 mg/dL (0.0-0.2) H Aspartate Amino Transferase (AST) 29 U/L (15-37) Alanine Aminotransferase (ALT) 11 U/L (14-59) L Alkaline Phosphatase 77 U/L (46-116) Total Protein 5.7 g/dL (6.4-8.2) L Albumin 2.1 g/dL (3.4-5.0) L Thyroid Stimulating Hormone (TSH) 1.784 uIU/mL (0.358-3.74) Laboratory Tests 01/12/21 07:30 Laboratory Tests 01/12/21 07:30 ECHOCARDIOGRAM ECHOCARDIOGRAM <Conclusion> DESTIN The left ventricular systolic function is normal and the ejection fraction is within normal range. The Ejection Fraction is 55%. There is normal LV segmental wall motion. The mitral valve is mildly thickened. The mitral valve appears thickened but no clear vegetation noted. DATE: 01/08/21 [id number] ASSESSMENT/PLAN ASSESSMENT/PLAN 1. ETOH cirrhosis/ascites and esophageal varices: S/P Paracentesis GI following 2. Sepsis with UTI and MSSA bacteremia. No endocarditis/vegetation per DESTIN 3. URVASHI: hepatorenal syndrome, nephrology following 4. Arrhythmia: No AFIB. EKG reveiwed and noted with SR/ST with PACs 5. Chronic anemia Recommendations 1. BP stable. Lytes are stable. No AFIB. Frequent PACs with associated metabolic issues. No need for CVC may transfer to [facility] 2. Continue hepatorenal optimization. Diuretic therapy per nephrology. Further fluid off loading per HD. Paracentesis pending today 3. Monitor lytes. EF and WM nml per recent DESTIN. Nothing further cardiac kenney. DONNELL REYES MD 01/12/21 9604: CARDIAC CONSULT ASSESSMENT/PLAN ASSESSMENT/PLAN The patient was seen and interviewed as well as examined at the bedside. The chart was reviewed. The case was discussed. Agree with the plan of care. JOSE DANIEL DILLON APRN Jan 12, 2021 12:29 DONNELL REYES MD Jan 12, 2021 22:44
[2021-01-12] MEDS ORDERED: LIDOCAINE WITH 8.4% SOD BICARB 3 ML DISP.SYRIN. INJ ONE (12:30)
--- NOTE | 2021-01-12 12:32 | NUR ---
per Yenifer Marsh, patient is not in afib, patient is currently sinus tachycardia with PAC's, will make patient a med tele and can transfer to [address] [place] [address].
[2021-01-12] MEDS ORDERED: LIDOCAINE WITH 8.4% SOD BICARB 3 ML DISP.SYRIN. ONE (12:53)
[2021-01-12] MEDS: FUROSEMIDE 40 MG TABLET. PO SCH (15:53)
[2021-01-12] MEDS: SPIRONOLACTONE 25 MG TABLET PO SCH (15:53)
--- NOTE | 2021-01-12 16:24 | NUR ---
The patient arrived on at 1400, AOx 4, on 3 liters of oxygen per nasal cannula, tachycardic at 120s to 130s. She denies pain. Paracentesis site on the RLQ, clean, dry and intact.
--- NOTE | 2021-01-12 16:33 | RAD ---
Procedure: Ultrasound guided paracentesis Clinical Indication: Adult female with recurrent abdominal ascites Sedation: Local anesthesia only Antibiotics: None Fluoro Time: None Contrast: Not applicable Sterility: The procedure was performed in its entirety using appropriate elements of sterile technique. Consent: The procedure was explained in its entirety to the patient or the patients designated insurance verification representative by a member of the treatment team, including a discussion of the risks, benefits and commonly accepted alternatives to the procedure, as well as the expected consequences of no therapy whatsoever. Discussion of the risks included, but was not limited to, those that are most frequent and those that are rare but possibly severe or life-threatening, as well as the possibility of unforeseen complications. Technique and Findings: Following informed consent, the patient was prepped and draped in the usual sterile fashion. Ultrasound interrogation of the abdomen revealed abdominal ascites. A hard copy ultrasound image was recorded. 1% Lidocaine was used to achieve local anesthesia over the area of interest, and a 6 [place] [id number]-A-[id number] catheter was advanced into the peritoneal cavity under ultrasound guidance. 1600 cc of thin yellow ascites was then withdrawn. The catheter was removed and hemostasis was achieved with manual compression. Complications: No immediate Impression: 1. Ultrasound-guided paracentesis as described
[2021-01-12] MEDS: ceFAZolin SODIUM IV Push 1 GM VIAL. IVP SCH (16:50)
--- NOTE | 2021-01-12 23:40 | NUR ---
NURSING NOTE Pt c/o increasing SOA and anxiety, feeling like can't catch her breath. Oxygen level on 3L/NC is 93%, RR at 34, HR at 125. Dr. Hernandez called and notified. Orders received. Will monitor. Addendum: 01/13/21 at 0103 by ZAIDA WATTS RN Pts lung sounds are wheezy/coarse at this time.
[2021-01-13] MEDS ORDERED: FUROSEMIDE 40 MG/4 ML VIAL. IVP ONE
--- NOTE | 2021-01-13 01:59 | RAD ---
Study: XR CHEST 1V Indication: Shortness of air. Comparison: 01/03/2021 Findings: Large bore central venous catheter tip projects at the upper right atrium. Mildly increased pleural effusion on the right. Newly developed plethoric central vasculature and mor e noticeable increased interstitial markings. Peribronchial cuffing. Asymmetric haziness at the mid l eft lung favored interstitial/alveolar edema summating with the scapula. No pneumothorax. Unchanged c ardiomediastinal silhouette. Impression: Constellation of findings typical of worsening volume overload/congestive heart failure to include pl ethoric central vasculature, an increasing right pleural effusion and more pronounced interstitial ma rkings/peribronchial cuffing. Electronically signed by: CAYDEN KERNS MD (01/13/2021 1:56 AM) [facility]
[2021-01-13] MEDS ORDERED: ALPRAZolam 0.5 MG TABLET PO PRN (03:15)
[2021-01-13 03:22] VITALS: BP 120/80
[2021-01-13 04:52] LABS: CALCIUM 8.2 mg/dL (8.5-10.1); CREATININE 2.8 mg/dL (0.6-1.0); GFR 16.8; POTASSIUM 3.9 mmol/L (3.5-5.1)
[2021-01-13 04:58] LABS: ALBUMIN 2.9 g/dL (3.4-5.0); ALBUMIN/GLOBULIN RATIO 0.9 (1.0-1.7); TOTAL BILIRUBIN 2.8 mg/dL (0.2-1.0)
[2021-01-13 05:05] LABS: MAGNESIUM 2.4 mg/dL (1.8-2.4); PHOSPHORUS 4.2 mg/dL (2.6-4.7)
[2021-01-13 07:00] VITALS: BP 139/84
--- NOTE | 2021-01-13 08:21 | PDOC ---
Infectious Disease Note Subjective: Subjective Patient complains of abdominal distension and abdominal discomfort Denies fever or chills,nausea or vomiting Vital Signs: Vital Signs Vital Signs Date Time Temp Pulse Resp B/P (MAP) Pulse Ox O2 Delivery O2 Flow Rate FiO2 01/13/21 07:00 95.9 121 20 139/84 (102) 96 Nasal Cannula 3.0 95.9 Physical Exam: PHYSICAL EXAM GENERAL: alert, thin, smiling HEENT: Pupils equally round, normal conjunctivae, mild icterus. Oral cavity, pink. No lesions seen. NECK: Supple. Right temporary HDC catheter present LUNGS: Diminished aeration at the bases. No accessory muscle use. HEART: Normal S1, S2. No murmur appreciated. ABDOMEN: Distended, taut, mildly tender with bowel sounds present. Umbilical hernia noted. EXTREMITIES: No gross edema or cyanosis. SKIN: Warm to touch. No signs of rash. NEUROLOGIC: Alert, answering questions appropriately. Peripheral IV looks okay. Medications: Inpatient Meds: Medications reviewed. Labs: Lab Laboratory Tests Test 01/12/21 08:30 01/13/21 04:00 Thyroid Stimulating Hormone (TSH) 1.784 uIU/mL (0.358-3.74) Sodium Level 137 mmol/L (136-145) Potassium Level 3.9 mmol/L (3.5-5.1) Chloride Level 99 mmol/L (98-107) Carbon Dioxide Level 20 mmol/L (21-32) Anion Gap 18 (6-14) Blood Urea Nitrogen 17 mg/dL (7-20) Creatinine 2.8 mg/dL (0.6-1.0) Estimated GFR (Cockcroft-Gault) 16.8 BUN/Creatinine Ratio 6 (6-20) Glucose Level 106 mg/dL (70-99) Calcium Level 8.2 mg/dL (8.5-10.1) Phosphorus Level 4.2 mg/dL (2.6-4.7) Magnesium Level 2.4 mg/dL (1.8-2.4) Total Bilirubin 2.8 mg/dL (0.2-1.0) Aspartate Amino Transf (AST/SGOT) 26 U/L (15-37) Alanine Aminotransferase (ALT/SGPT) 8 U/L (14-59) Alkaline Phosphatase 71 U/L (46-116) Total Protein 6.0 g/dL (6.4-8.2) Albumin 2.9 g/dL (3.4-5.0) Albumin/Globulin Ratio 0.9 (1.0-1.7) Micro Micro Final GROWTH OF GRAM POSITIVE COCCI FINAL ID= [STAPHYLOCOCCUS AUREUS] STAPHYLOCOCCUS AUREUS ANTIMICROBIAL SUSCEPTIBILITY Final Comment POS ISSAC TYPE 38 STAPHYLOCOCCUS AUREUS ANTIBIOTIC RESULT INTERPRETATION AZITHROMYCIN <=2 S CLINDAMYCIN <=0.25 S CEFOXITIN SCREEN <=4 NEG CIPROFLOXACIN <=1 S CEFTAROLINE <=0.5 S DAPTOMYCIN <=0.5 S ERYTHROMYCIN <=0.25 S GENTAMICIN <=4 S LINEZOLID 2 S LEVOFLOXACIN <=1 S OXACILLIN <=0.25 S PENICILLIN >2 Hyun RIFAMPIN <=1 S TRIMETHOPRIM/SULFAMETHOXAZOLE <=0.5/9.5 S TETRACYCLINE <=4 S VANCOMYCIN 1 S LINN: 01/05/21 STATUS: RES REQ #: [id number] ABDOMINAL FLUID GRAM STAIN Final Final NO ORGANISMS SEEN. SQUAMOUS EPI CELL:NOT APPLICABLE PMN (WBCs):RARE ANAEROBIC-AEROBIC CULTURE final No Growth on 01/06/21 at 0958 No Growth on 01/07/21 at 1038 Unless otherwise specified, Testing Performed by: [address] [address] For Inquires, the Physician may contact the Microbiology department at [phone] 2D echo The left ventricular systolic function is normal and the ejection fraction is within normal range. The Ejection Fraction is 55%. There is normal LV segmental wall motion. The mitral valve is mildly thickened. The mitral valve appears thickened but no clear vegetation noted. If there is high clinical suspicion for endocarditis, consider DESTIN. Objective: Assessment: MSSA bacteremia from 01/03/2021. DESTIN negative for vegetation on 01/11/21 MSSA peritonitis from 12/05/2020. Repeat paracentesis on 01/05/2021 also indicative peritonitis with 1100 wbc's. -Cult neg so far -Repeat paracentesis 01/09/2021 Leukocytosis. Alcoholic liver disease with recurrent ascites. Umbilical hernia. Weight loss. Coagulopathy Hyponatremia, Abd wall hernia containing SB COVID negative 01/04 URVASHI s/p temporary HDC ( 01/10) Plan: Plan of Care Cont cefazolin, renal dosing ( 01/11), was on nafcillin hold picc line placement for now Repeat BC 01/06 neg so far Peritoneal fluid cultures negative DESTIN neg for vegetation Monitor lab values and cultures monitor abdo distention closely, may need repeat paracentesis Maintain aspiration precaution Supportive care CJ HUMPHRIES MD Jan 13, 2021 08:21
[2021-01-13] MEDS: FUROSEMIDE 40 MG TABLET. PO SCH ×2 (09:03→13:59)
[2021-01-13] MEDS: CHOLECALCIFEROL (VITAMIN D3) 5,000 UNIT CAPSULE PO SCH (09:03)
[2021-01-13] MEDS: LACTOBACILLUS RHAMNOSUS GG 1 CAPSULE. PO SCH ×2 (09:03→20:11)
[2021-01-13] MEDS: VITAMIN B12,B9,B6 COMPLEX 1 TABLET. PO SCH (09:03)
[2021-01-13] MEDS: SPIRONOLACTONE 25 MG TABLET PO SCH (09:04)
[2021-01-13] MEDS: PANTOPRAZOLE IV PUSH 40 MG VIAL. IVP SCH (09:04)
[2021-01-13] MEDS: ceFAZolin SODIUM IV Push 1 GM VIAL. IVP SCH ×2 (09:04→20:11)
[2021-01-13] MEDS: HEPARIN for SUB-Q USE 5,000 UNIT/ML VIAL. SQ SCH ×2 (09:24→20:13)
[2021-01-13 11:00] VITALS: BP 127/78
--- NOTE | 2021-01-13 11:46 | PDOC ---
[employer] PROGRESS NOTE Date of Service DOS: DATE: 01/13/21 TIME: 11:24 Chief Complaint Chief Complaint sepsis UTI MSSA bacteremia, abd ascites, hepatic cirrhosis, liver disease from EtOH abuse for years, MELD 19 now 35 s/p paracentesis URVASHI due to vasomotor nephropathy, possible hepatorenal syndrome Acute electrolyte derangementhyperkalemia, hyponatremia Hyperbilirubinemia Severe protein malnutrition New onset A. fib RVR History of Present Illness History of Present Illness 01/13/21 Pt seen and examined Discussed next steps regarding hospice with pt's brother and DPEDD [place] as well as her sisters. Pt states she is interested in hospice. Pt and family would like a drain inserted for home management of ascites. - Dr. Mcclelland agreed place Pleurx device after discussion today. DWRN Chart reviewed 01/12/2021 No acute events overnight. Patient had new onset atrial fibrillation during her dialysis session today. Cardiology is consulted. Electrolytes are balanced. TSH is ordered. Patient is reaccumulating fluid in her abdomen due to her refractory ascites. IR is consulted. Patient's chart, labs, images were reviewed and discussed with RN 01/11/2021 No acute events overnight. Patient did get a temp HD catheter placed and had dialysis. Electrolytes are improved. Pending DESTIN today. Will discuss with transfer [facility] for possible placing the patient on transplant list. Patient's chart, labs, images were reviewed and discussed with RN 01/09/2021 No acute events overnight. Patient appears to be refractory to diuresis. URVASHI today and some hyperkalemia. Nephrology is consulted. Pending paracentesis. Pending DESTIN. Patient's chart, labs, images were reviewed and discussed with RN 01/08/2021 No acute events overnight. Patient seen and examined bedside. Patient did have an episode of vomiting that required IV antiemetics. Patient's abdominal distention also worsening. Will defer to GI for possible repeat paracentesis before discharge. Advance care planning: A total time of > 17 minutes was spent from 1130 to 1150 face to face in discussion with the patient and family regarding their goals of care, transplantation, hospice. As of now, there is no final decision of whether the patient wants to go through transplant evaluation or hospice care. Detailed instructions and goals were discussed with the brother and sister regarding strict I's and O's, daily weights, low-sodium diet and fluid restricti on. Patient will also need to consider being on diuretics and repeat routine paracentesis until a definitive transplant plan can be laid out for them. They have been following with real estate investor Dr. Crystal at [facility] in the past but was lost to follow-up mainly because the patient relapsed into drinking alcohol again. According to the brother the patient has been sober for the last 2 months and felt that it would be a good time to reconsider the transplant route. 01/07 ID consult following, narrowed abx to Nafcillin repeat cx pending echo ordered, May need PICC and IV abx, pt thinks she feels well for DC, need coordination for ID and the abx blood cx showed Gm pos cocci, yesterdaay, VANCOmycin dosed, now today, MSSA pos cult. panchal sens. will stop the vanc, order echo, consult ID, severe malntrition paracentesis yesterday, cont current, that cx is pending, the PMN count is < 250, not likely SBP, risk of secondary staph infection is high Vitals/I&O Vitals/I&O: Vital Signs Date Time Temp Pulse Resp B/P (MAP) Pulse Ox O2 Delivery O2 Flow Rate FiO2 01/13/21 11:00 95.6 113 18 127/78 (94) 96 Nasal Cannula 3.0 95.6 I & O 01/12/21 01/12/21 01/13/21 15:00 23:00 07:00 Intake Total 250 ml 100 ml Output Total 1600 ml 50 ml 10 ml Balance -1600 ml 200 ml 90 ml Physical Exam Physical Exam: GENERAL: alert, thin, smiling HEENT: Pupils equally round, normal conjunctivae, mild icterus. Oral cavity, pink. No lesions seen. NECK: Supple. Right temporary HDC catheter present LUNGS: Diminished aeration at the bases. No accessory muscle use. HEART: Normal S1, S2. No murmur appreciated. ABDOMEN: Distended, taut, mildly tender with bowel sounds present. Umbilical hernia noted. EXTREMITIES: No gross edema or cyanosis. SKIN: Warm to touch. No signs of rash. NEUROLOGIC: Alert, answering questions appropriately. Peripheral IV looks okay. General: Alert, Oriented X3, Cooperative, No acute distress Heart: Normal S1, Normal S2, No murmurs, Other (SR/ST with PACs per EKG) Lungs: Clear Abdomen: Soft, Other (ascites) Extremities: No cyanosis Skin: No breakdown Labs Labs: Laboratory Tests Test 01/13/21 04:00 Sodium Level 137 mmol/L (136-145) Potassium Level 3.9 mmol/L (3.5-5.1) Chloride Level 99 mmol/L (98-107) Carbon Dioxide Level 20 mmol/L (21-32) Anion Gap 18 (6-14) Blood Urea Nitrogen 17 mg/dL (7-20) Creatinine 2.8 mg/dL (0.6-1.0) Estimated GFR (Cockcroft-Gault) 16.8 BUN/Creatinine Ratio 6 (6-20) Glucose Level 106 mg/dL (70-99) Calcium Level 8.2 mg/dL (8.5-10.1) Phosphorus Level 4.2 mg/dL (2.6-4.7) Magnesium Level 2.4 mg/dL (1.8-2.4) Total Bilirubin 2.8 mg/dL (0.2-1.0) Aspartate Amino Transf (AST/SGOT) 26 U/L (15-37) Alanine Aminotransferase (ALT/SGPT) 8 U/L (14-59) Alkaline Phosphatase 71 U/L (46-116) Total Protein 6.0 g/dL (6.4-8.2) Albumin 2.9 g/dL (3.4-5.0) Albumin/Globulin Ratio 0.9 (1.0-1.7) Review of Systems Review of Systems: Denies chest pain Denies headache Assessment and Plan Assessmemt and Plan Problems Medical Problems: (1) Sepsis Status: Acute sepsis UTI MSSA bacteremia, abd ascites, hepatic cirrhosis, liver disease from EtOH abuse for years, MELD 19 now 35 s/p paracentesis URVASHI due to vasomotor nephropathy, possible hepatorenal syndrome Acute electrolyte derangementhyperkalemia, hyponatremia Hyperbilirubinemia Severe protein malnutrition New onset A. fib RVR Plan: Pt requesting comfort medication Ordered Morphine 2 mg IV q2 hours and Ativan IV q4 hours Consult IR for PleurX drain placement - Dr. Mcclelland Probable d/c with hospice once arranged. - Family would like Hospice. Monitor ascites Begin metoprolol 25 mg PO BID for rate control HD per nephrology? Cardiac monitoring Home meds DVT prophylaxis Full code Comment Review of Relevant I have reviewed the following items chilo (where applicable) has been applied. Medications: Current Medications Medications (Trade) Dose Ordered Sig/Ramya Route PRN Reason Start Time Stop Time Status Last Admin Dose Admin Metoprolol Tartrate (Lopressor Vial) 5 mg PRN Q5MIN PRN IVP TACHYCARDIA 01/12/21 11:30 01/12/21 23:43 DC 01/12/21 21:02 Furosemide (Lasix) 40 mg [id number] PO 01/12/21 14:00 01/13/21 09:03 Spironolactone (Aldactone) 50 mg DAILY PO 01/12/21 14:00 01/13/21 09:04 Lidocaine HCl (Buffered Lidocaine 1%) 6 ml 1X ONCE INJ 01/12/21 12:30 01/12/21 12:31 DC 01/12/21 12:50 Furosemide (Lasix) 40 mg 1X ONCE IVP 01/13/21 00:00 01/13/21 00:01 DC 01/13/21 00:01 Metoprolol Tartrate (Lopressor Vial) 5 mg PRN Q2HR PRN IVP TACHYCARDIA 01/12/21 23:45 01/13/21 02:52 Alprazolam (Xanax) 0.5 mg PRN Q8HRS PRN PO ANXIETY / AGITATION 01/13/21 03:15 01/13/21 03:18 Cefazolin Sodium (Ancef) 1 gm Q12HR IVP 01/13/21 09:00 01/13/21 09:04 Lorazepam (Ativan Inj) 1 mg PRN Q4HRS PRN IVP ANXIETY / AGITATION 01/13/21 11:15 01/13/21 11:20 Justifications for Admission Other Justification Cirrhosis, abdominal ascites, UTI CASTLE,NIAL K III DO Jan 13, 2021 11:46
[2021-01-13] MEDS: METOPROLOL TART IMMED RELEASE 25 MG TABLET. PO SCH ×2 (13:59→20:12)
[2021-01-13] MEDS: MORPHINE SULFATE 2 MG/ML VIAL. IV PRN (14:06)
--- NOTE | 2021-01-13 14:40 | PDOC ---
Renal-Progress Notes Subjective Notes Notes ABD DISTENDED AGAIN History of Present Illness Hx of present illness ABD PAIN Vitals Vitals Vital Signs Date Time Temp Pulse Resp B/P (MAP) Pulse Ox O2 Delivery O2 Flow Rate FiO2 01/13/21 14:06 16 96 Nasal Cannula 3.0 01/13/21 13:59 113 127/78 01/13/21 11:00 95.6 95.6 Weight Weight [ ] I.O. Intake and Output Intake and Output 01/13/21 07:00 Intake Total 350 ml Output Total 1660 ml Balance -1310 ml Intake Oral 350 ml Output Urine Total 10 ml Drainage Total 1650 ml # Voids 2 # Bowel Movements 2 Labs Labs Laboratory Tests Test 01/13/21 04:00 Sodium Level 137 mmol/L (136-145) Potassium Level 3.9 mmol/L (3.5-5.1) Chloride Level 99 mmol/L (98-107) Carbon Dioxide Level 20 mmol/L (21-32) Anion Gap 18 (6-14) Blood Urea Nitrogen 17 mg/dL (7-20) Creatinine 2.8 mg/dL (0.6-1.0) Estimated GFR (Cockcroft-Gault) 16.8 BUN/Creatinine Ratio 6 (6-20) Glucose Level 106 mg/dL (70-99) Calcium Level 8.2 mg/dL (8.5-10.1) Phosphorus Level 4.2 mg/dL (2.6-4.7) Magnesium Level 2.4 mg/dL (1.8-2.4) Total Bilirubin 2.8 mg/dL (0.2-1.0) Aspartate Amino Transf (AST/SGOT) 26 U/L (15-37) Alanine Aminotransferase (ALT/SGPT) 8 U/L (14-59) Alkaline Phosphatase 71 U/L (46-116) Total Protein 6.0 g/dL (6.4-8.2) Albumin 2.9 g/dL (3.4-5.0) Albumin/Globulin Ratio 0.9 (1.0-1.7) Micro Micro Microbiology 01/06/21 Blood Culture - Final, Complete NO GROWTH AFTER 5 DAYS 01/05/21 Gram Stain - Final, Complete 01/05/21 Aerobic and Anaerobic Culture - Final, Complete Review of Systems Constitutional: yes: weakness, alert, oriented Ears/Nose/Throat: Yes: no symptom reported Eyes: Yes: no symptom reported Pulmonary: Yes no symptom reported Cardiovascular: Yes no symptom reported Genitourinary: Yes: no symptom reported Musculoskeletal: Yes: muscle stiffness Skin: Yes no symptom reported Psychiatric/Neurological: Yes: no symptom reported Endocrine: Yes: no symptom reported Physical Exam General Appearance: no apparent distress Skin: warm Respiratory: decreased breath sounds Heart: S1S2 Abdomen: soft, distension Genitourinary: bladder flat, acevedo catheter Extremities: pulses present, no edema Neurology: alert Assessment Assessment IMP DYSPNEA URVASHI PROB CONTRAST RELATED MSSA BACTEREMIA SEPSIS UTI HEP CIRRHOSIS FROM ETOH ABUSE S/P LARGE VOLUME PARACENTESIS TWICE HYPERKALEMIA HYPONATREMIA PLAN POSSIBLE HEPATORENAL BUT CAN MOST LIKELY CAN ALBUMIN INFUSION NEEDED STOP SALINE INFUSION ANTIBIOTICS DESTIN PENDING NEG MONITOR FOR RENAL RECOVERY LONG D/W BROTHER DOREEN EDMOND [facility] SHE WILL NEED HER 3RD PARACENTESIS TODAY SINCE ADMISSION STOP PRN NSAIDS RESUMED DIURETICS POOR PROGNOSIS WILL FOLLOW JOHN AYALA MD Jan 13, 2021 14:40
[2021-01-13 15:00] VITALS: BP 110/56
[2021-01-13 19:35] VITALS: BP 121/77
[2021-01-13 20:08] LABS: UR POTASSIUM 33.9 mmol/L (Not Estab.)
[2021-01-13 23:00] VITALS: BP 113/59
[2021-01-14 03:00] VITALS: BP 114/64
[2021-01-14 07:00] VITALS: BP 99/58
[2021-01-14] MEDS: SPIRONOLACTONE 25 MG TABLET PO SCH (08:19)
[2021-01-14] MEDS: LACTOBACILLUS RHAMNOSUS GG 1 CAPSULE. PO SCH ×2 (08:19→21:05)
[2021-01-14] MEDS: FUROSEMIDE 40 MG TABLET. PO SCH ×2 (08:19→13:30)
[2021-01-14] MEDS: PANTOPRAZOLE IV PUSH 40 MG VIAL. IVP SCH (08:19)
[2021-01-14] MEDS: CHOLECALCIFEROL (VITAMIN D3) 5,000 UNIT CAPSULE PO SCH (08:19)
[2021-01-14] MEDS: VITAMIN B12,B9,B6 COMPLEX 1 TABLET. PO SCH (08:19)
[2021-01-14] MEDS: METOPROLOL TART IMMED RELEASE 25 MG TABLET. PO SCH ×2 (08:20→21:05)
[2021-01-14] MEDS: ceFAZolin SODIUM IV Push 1 GM VIAL. IVP SCH ×2 (08:20→21:05)
[2021-01-14] MEDS: HEPARIN for SUB-Q USE 5,000 UNIT/ML VIAL. SQ SCH ×2 (08:22→21:14)
--- NOTE | 2021-01-14 09:55 | PDOC ---
Infectious Disease Note Subjective: Subjective Patient feels better Still has some abdominal distension and abdominal discomfort Denies fever or chills,nausea or vomiting Vital Signs: Vital Signs Vital Signs Date Time Temp Pulse Resp B/P (MAP) Pulse Ox O2 Delivery O2 Flow Rate FiO2 01/14/21 08:20 88 99/58 01/14/21 07:00 97.5 18 94 Nasal Cannula 3.0 97.5 Physical Exam: PHYSICAL EXAM GENERAL: alert, thin, smiling HEENT: Pupils equally round, normal conjunctivae, mild icterus. Oral cavity, pink. No lesions seen. NECK: Supple. Right temporary HDC catheter present LUNGS: Diminished aeration at the bases. No accessory muscle use. HEART: Normal S1, S2. No murmur appreciated. ABDOMEN: Distended, taut, mildly tender with bowel sounds present. Umbilical hernia noted. EXTREMITIES: No gross edema or cyanosis. SKIN: Warm to touch. No signs of rash. NEUROLOGIC: Alert, answering questions appropriately. Peripheral IV looks okay. Medications: Inpatient Meds: Medications reviewed. Labs: Micro Micro Final GROWTH OF GRAM POSITIVE COCCI FINAL ID= [STAPHYLOCOCCUS AUREUS] STAPHYLOCOCCUS AUREUS ANTIMICROBIAL SUSCEPTIBILITY Final Comment POS ISSAC TYPE 38 STAPHYLOCOCCUS AUREUS ANTIBIOTIC RESULT INTERPRETATION AZITHROMYCIN <=2 S CLINDAMYCIN <=0.25 S CEFOXITIN SCREEN <=4 NEG CIPROFLOXACIN <=1 S CEFTAROLINE <=0.5 S DAPTOMYCIN <=0.5 S ERYTHROMYCIN <=0.25 S GENTAMICIN <=4 S LINEZOLID 2 S LEVOFLOXACIN <=1 S OXACILLIN <=0.25 S PENICILLIN >2 Hyun RIFAMPIN <=1 S TRIMETHOPRIM/SULFAMETHOXAZOLE <=0.5/9.5 S TETRACYCLINE <=4 S VANCOMYCIN 1 S LINN: 01/05/21 STATUS: RES REQ #: [id number] ABDOMINAL FLUID GRAM STAIN Final Final NO ORGANISMS SEEN. SQUAMOUS EPI CELL:NOT APPLICABLE PMN (WBCs):RARE ANAEROBIC-AEROBIC CULTURE final No Growth on 01/06/21 at 0958 No Growth on 01/07/21 at 1038 Unless otherwise specified, Testing Performed by: [address] [address] For Inquires, the Physician may contact the Microbiology department at [phone] 2D echo The left ventricular systolic function is normal and the ejection fraction is within normal range. The Ejection Fraction is 55%. There is normal LV segmental wall motion. The mitral valve is mildly thickened. The mitral valve appears thickened but no clear vegetation noted. If there is high clinical suspicion for endocarditis, consider DESTIN. Objective: Assessment: MSSA bacteremia from 01/03/2021. DESTIN negative for vegetation on 01/11/21 MSSA peritonitis from 12/05/2020. Repeat paracentesis on 01/05/2021 also indicative peritonitis with 1100 wbc's. -Cult neg so far -Repeat paracentesis 01/09/2021 Leukocytosis. Alcoholic liver disease with recurrent ascites. Umbilical hernia. Weight loss. Coagulopathy Hyponatremia, Abd wall hernia containing SB COVID negative 01/04 URVASHI s/p temporary HDC ( 01/10) Plan: Plan of Care Cont cefazolin, renal dosing ( 01/11), was on nafcillin hold picc line placement Repeat BC 01/06 neg Peritoneal fluid cultures negative DESTIN neg for vegetation Monitor lab values and cultures monitor abdo distention closely, may need repeat paracentesis Maintain aspiration precaution Supportive care CJ HUMPHRIES MD Jan 14, 2021 09:55
[2021-01-14 11:00] VITALS: BP 102/57
--- NOTE | 2021-01-14 11:10 | PDOC ---
[employer] PROGRESS NOTE Date of Service DOS: DATE: 01/14/21 TIME: 11:07 Chief Complaint Chief Complaint sepsis UTI MSSA bacteremia, abd ascites, hepatic cirrhosis, liver disease from EtOH abuse for years, MELD 19 now 35 s/p paracentesis URVASHI due to vasomotor nephropathy, possible hepatorenal syndrome Acute electrolyte derangementhyperkalemia, hyponatremia Hyperbilirubinemia Severe protein malnutrition New onset A. fib RVR History of Present Illness History of Present Illness 01/14/21 Pt seen and examined Pt resting upon examination, more comfortable today. DWRN Chart reviewed 01/13/21 Pt seen and examined Discussed next steps regarding hospice with pt's brother and DPOA Lan as well as her sisters. Pt states she is interested in hospice. Pt and family would like a drain inserted for home management of ascites. - Dr. Mcclelland agreed place Pleurx device after discussion today. DWRN Chart reviewed 01/12/2021 No acute events overnight. Patient had new onset atrial fibrillation during her dialysis session today. Cardiology is consulted. Electrolytes are balanced. TSH is ordered. Patient is reaccumulating fluid in her abdomen due to her refractory ascites. IR is consulted. Patient's chart, labs, images were reviewed and discussed with RN 01/11/2021 No acute events overnight. Patient did get a temp HD catheter placed and had dialysis. Electrolytes are improved. Pending DESTIN today. Will discuss with transfer [facility] for possible placing the patient on transplant list. Patient's chart, labs, images were reviewed and discussed with RN 01/09/2021 No acute events overnight. Patient appears to be refractory to diuresis. URVASHI today and some hyperkalemia. Nephrology is consulted. Pending paracentesis. Pending DESTIN. Patient's chart, labs, images were reviewed and discussed with RN 01/08/2021 No acute events overnight. Patient seen and examined bedside. Patient did have an episode of vomiting that required IV antiemetics. Patient's abdominal distention also worsening. Will defer to GI for possible repeat paracentesis be fore discharge. Advance care planning: A total time of > 17 minutes was spent from 1130 to 1150 face to face in discussion with the patient and family regarding their goals of care, transplantation, hospice. As of now, there is no final decision of whet her the patient wants to go through transplant evaluation or hospice care. Detailed instructions and goals were discussed with the brother and sister regarding strict I's and O's, daily weights, low-sodium diet and fluid restriction. Patient will also need to consider being on diuretics and repeat routine paracentesis until a definitive transplant plan can be laid out for them. They have been following with air quality technician Dr. Crystal at [facility] in the past but was lost to follow-up mainly because the patient relapsed into drinking alcohol again. According to the brother the patient has been sober for the last 2 months and felt that it would be a good time to reconsider the transplant route. 01/07 ID consult following, narrowed abx to Nafcillin repeat cx pending echo ordered, May need PICC and IV abx, pt thinks she feels well for DC, need coordination for ID and the abx blood cx showed Gm pos cocci, yesterdaay, VANCOmycin dosed, now today, MSSA pos cult. panchal sens. will stop the vanc, order echo, consult ID, severe malntrition paracentesis yesterday, cont current, that cx is pending, the PMN count is < 250, not likely SBP, risk of secondary staph infection is high Vitals/I&O Vitals/I&O: Vital Signs Date Time Temp Pulse Resp B/P (MAP) Pulse Ox O2 Delivery O2 Flow Rate FiO2 01/14/21 08:20 88 99/58 01/14/21 08:00 Nasal Cannula 3.0 01/14/21 07:00 97.5 18 94 97.5 I & O 01/13/21 01/13/21 01/14/21 15:00 23:00 07:00 Intake Total 200 ml Output Total 100 ml 20 ml 30 ml Balance -100 ml -20 ml 170 ml Physical Exam Physical Exam: GENERAL: alert, thin, smiling HEENT: Pupils equally round, normal conjunctivae, mild icterus. Oral cavity, pink. No lesions seen. NECK: Supple. Right temporary HDC catheter present LUNGS: Diminished aeration at the bases. No accessory muscle use. HEART: Normal S1, S2. No murmur appreciated. ABDOMEN: Distended, taut, mildly tender with bowel sounds present. Umbilical hernia noted. EXTREMITIES: No gross edema or cyanosis. SKIN: Warm to touch. No signs of rash. NEUROLOGIC: Alert, answering questions appropriately. Peripheral IV looks okay. General: Alert, Oriented X3, Cooperative, No acute distress Heart: Normal S1, Normal S2, No murmurs, Other (SR/ST with PACs per EKG) Lungs: Clear Abdomen: Soft, Other (ascites) Extremities: No cyanosis Skin: No breakdown Review of Systems Review of Systems: Denies SOB Denies chest pain Assessment and Plan Assessmemt and Plan Problems Medical Problems: (1) Sepsis Status: Acute sepsis UTI MSSA bacteremia, abd ascites, hepatic cirrhosis, liver disease from EtOH abuse for years, MELD 19 now 35 s/p paracentesis URVASHI due to vasomotor nephropathy, possible hepatorenal syndrome Acute electrolyte derangementhyperkalemia, hyponatremia Hyperbilirubinemia Severe protein malnutrition New onset A. fib RVR Plan: Continue current treatment Awaiting PleurX drain placement - Dr. Mcclelland Probable d/c with hospice once arranged. - Family would like Hospice. Monitor ascites Continue metoprolol 25 mg PO BID for rate control Continue plan per ID and nephrology Cardiac monitoring Home meds DVT prophylaxis Full code Comment Review of Relevant I have reviewed the following items chilo (where applicable) has been applied. Medications: Current Medications Medications (Trade) Dose Ordered Sig/Ramya Route PRN Reason Start Time Stop Time Status Last Admin Dose Admin Morphine Sulfate (Morphine Sulfate) 2 mg PRN Q2HR PRN IV PAIN 01/13/21 11:15 01/13/21 14:06 Lorazepam (Ativan Inj) 1 mg PRN Q4HRS PRN IVP ANXIETY / AGITATION 01/13/21 11:15 01/13/21 11:20 Metoprolol Tartrate (Lopressor) 25 mg BID PO 01/13/21 12:30 01/14/21 08:20 Justifications for Admission Other Justification Cirrhosis, abdominal ascites, UTI CASTLE,NIAL K III DO Jan 14, 2021 11:10
[2021-01-14] MEDS: MORPHINE SULFATE 2 MG/ML VIAL. IV PRN ×2 (13:44→21:18)
--- NOTE | 2021-01-14 14:56 | PDOC ---
Renal-Progress Notes Subjective Notes Notes SOME ABD PAIN History of Present Illness Hx of present illness NO ACUTE CHANGES Vitals Vitals Vital Signs Date Time Temp Pulse Resp B/P (MAP) Pulse Ox O2 Delivery O2 Flow Rate FiO2 01/14/21 14:14 96 Nasal Cannula 3.0 01/14/21 13:44 16 01/14/21 11:00 98.1 85 102/57 (72) 98.1 Weight Weight [ ] I.O. Intake and Output Intake and Output 01/14/21 07:00 Intake Total 200 ml Output Total 150 ml Balance 50 ml Intake Oral 200 ml Output Urine Total 150 ml # Bowel Movements 1 Micro Micro Microbiology 01/06/21 Blood Culture - Final, Complete NO GROWTH AFTER 5 DAYS 01/05/21 Gram Stain - Final, Complete 01/05/21 Aerobic and Anaerobic Culture - Final, Complete Review of Systems Constitutional: yes: weakness, alert, oriented Ears/Nose/Throat: Yes: no symptom reported Eyes: Yes: no symptom reported Pulmonary: Yes no symptom reported Cardiovascular: Yes no symptom reported Genitourinary: Yes: no symptom reported Musculoskeletal: Yes: muscle stiffness Skin: Yes no symptom reported Psychiatric/Neurological: Yes: no symptom reported Endocrine: Yes: no symptom reported Physical Exam General Appearance: no apparent distress Skin: warm Respiratory: decreased breath sounds Heart: S1S2 Abdomen: soft, distension Genitourinary: bladder flat, acevedo catheter Extremities: pulses present, no edema Neurology: alert Assessment Assessment IMP DYSPNEA URVASHI PROB CONTRAST RELATED MSSA BACTEREMIA SEPSIS UTI HEP CIRRHOSIS FROM ETOH ABUSE S/P LARGE VOLUME PARACENTESIS TWICE HYPERKALEMIA HYPONATREMIA PLAN PT AND FAMILY HAVE DECIDED ON HOSPICE CARE HAVE ASKED STAFF TO REMOVE HER TEMP HD LINE WILL SIGN OFF JOHN AYALA MD Jan 14, 2021 14:55
[2021-01-14 15:00] VITALS: BP 106/63
[2021-01-14 19:00] VITALS: BP 108/57
[2021-01-14 23:00] VITALS: BP 107/60
[2021-01-15 03:00] VITALS: BP 98/57
[2021-01-15 05:03] LABS: CALCIUM 8.5 mg/dL (8.5-10.1); CREATININE 5.2 mg/dL (0.6-1.0); GFR 8.2; POTASSIUM 3.7 mmol/L (3.5-5.1)
[2021-01-15 07:00] VITALS: BP 97/54
[2021-01-15] MEDS: SPIRONOLACTONE 25 MG TABLET PO SCH (09:00)
[2021-01-15] MEDS: HEPARIN for SUB-Q USE 5,000 UNIT/ML VIAL. SQ SCH (09:00)
[2021-01-15] MEDS: FUROSEMIDE 40 MG TABLET. PO SCH ×2 (09:00→15:20)
[2021-01-15] MEDS: METOPROLOL TART IMMED RELEASE 25 MG TABLET. PO SCH (09:00)
[2021-01-15] MEDS: PANTOPRAZOLE IV PUSH 40 MG VIAL. IVP SCH (09:11)
[2021-01-15] MEDS: ceFAZolin SODIUM IV Push 1 GM VIAL. IVP SCH (09:11)
--- NOTE | 2021-01-15 09:46 | PDOC ---
PROGRESS NOTES Date of Service: DATE: 01/15/21 TIME: 09:45 Chief Complaint Chief Complaint sepsis UTI MSSA bacteremia, abd ascites, hepatic cirrhosis, liver disease from EtOH abuse for years, MELD 19 now 35 s/p paracentesis URVASHI due to vasomotor nephropathy, possible hepatorenal syndrome Acute electrolyte derangementhyperkalemia, hyponatremia Hyperbilirubinemia Severe protein malnutrition New onset A. fib RVR History of Present Illness History of Present Illness 01/15,. she had a little trouble remembering me from last week, some encephalopathy, but she was clear on the plan, reviewed, PLUEREX and DC to hospice 01/14/21 Pt seen and examined Pt resting upon examination, more comfortable today. DWRN Chart reviewed 01/13/21 Pt seen and examined Discussed next steps regarding hospice with pt's brother and DPEDD [place] as well as her sisters. Pt states she is interested in hospice. Pt and family would like a drain inserted for home management of ascites. - Dr. Mcclelland agreed place Pleurx device after discussion today. SHRUTHIRN Chart reviewed 01/12/2021 No acute events overnight. Patient had new onset atrial fibrillation during her dialysis session today. Cardiology is consulted. Electrolytes are balanced. TSH is ordered. Patient is reaccumulating fluid in her abdomen due to her refra ctory ascites. IR is consulted. Patient's chart, labs, images were reviewed and discussed with RN 01/11/2021 No acute events overnight. Patient did get a temp HD catheter placed and had dialysis. Electrolytes are improved. Pending DESTIN today. Will discuss with [facility] for possible placing the patient on transplant list. Patient's chart, labs, images were reviewed and discussed with RN 01/09/2021 No acute events overnight. Patient appears to be refractory to diuresis. URVASHI today and some hyperkalemia. Nephrology is consulted. Pending paracentesis. Pending DESTIN. Patient's chart, labs, images were reviewed and discussed with RN 01/08/2021 No acute events overnight. Patient seen and examined bedside. Patient did have an episode of vomiting that required IV antiemetics. Patient's abdominal distention also worsening. Will defer to GI for possible repeat paracentesis before discharge. Advance care planning: A total time of > 17 minutes was spent from 1130 to 1150 face to face in discussion with the patient and family regarding their goals of care, transplantation, hospice. As of now, there is no final decision of whether the patient wants to go through transplant evaluation or hospice care. Detailed instructions and goals were discussed with the brother and sister regarding strict I's and O's, daily weights, low-sodium diet and fluid restriction. Patient will also need to consider being on diuretics and repeat routine paracentesis until a definitive transplant plan can be laid out for the m. They have been following with supervisor electronic testing Dr. Crystal at [facility] in the past but was lost to follow-up mainly because the patient relapsed into drinking alcohol again. According to the brother the patient has been sober for the last 2 months and felt that it would be a good time to reconsider the transplant route. 01/07 ID consult following, narrowed abx to Nafcillin repeat cx pending echo ordered, May need PICC and IV abx, pt thinks she feels well for DC, need coordination for ID and the abx blood cx showed Gm pos cocci, yesterdaay, VANCOmycin dosed, now today, MSSA pos cult. panchal sens. will stop the vanc, order echo, consult ID, severe malntrition paracentesis yesterday, cont current, that cx is pending, the PMN count is < 250, not likely SBP, risk of secondary staph infection is high Vitals Vitals Vital Signs Date Time Temp Pulse Resp B/P (MAP) Pulse Ox O2 Delivery O2 Flow Rate FiO2 01/15/21 07:00 98.0 84 21 97/54 (68) 96 Nasal Cannula 3.0 98.0 Physical Exam Physical Exam GENERAL: alert, thin, smiling HEENT: Pupils equally round, normal conjunctivae, mild icterus. Oral cavity, pink. No lesions seen. NECK: Supple. Right temporary HDC catheter present LUNGS: Diminished aeration at the bases. No accessory muscle use. HEART: Normal S1, S2. No murmur appreciated. ABDOMEN: Distended, taut, mildly tender with bowel sounds present. Umbilical hernia noted. EXTREMITIES: No gross edema or cyanosis. SKIN: Warm to touch. No signs of rash. NEUROLOGIC: Alert, answering questions appropriately. Peripheral IV looks okay. General: Alert, Oriented X3, Cooperative, No acute distress Heart: Normal S1, Normal S2, No murmurs, Other (SR/ST with PACs per EKG) Lungs: Clear Abdomen: Soft, Other (ascites) Extremities: No cyanosis Skin: No breakdown Labs LABS Laboratory Tests Test 01/15/21 04:00 Sodium Level 137 mmol/L (136-145) Potassium Level 3.7 mmol/L (3.5-5.1) Chloride Level 100 mmol/L (98-107) Carbon Dioxide Level 28 mmol/L (21-32) Anion Gap 9 (6-14) Blood Urea Nitrogen 35 mg/dL (7-20) Creatinine 5.2 mg/dL (0.6-1.0) Estimated GFR (Cockcroft-Gault) 8.2 Glucose Level 123 mg/dL (70-99) Calcium Level 8.5 mg/dL (8.5-10.1) Assessment and Plan Assessmemt and Plan Problems Medical Problems: (1) Sepsis Status: Acute Comment Review of Relevant I have reviewed the following items chilo (where applicable) has been applied. Labs Laboratory Tests Test 01/15/21 04:00 Sodium Level 137 mmol/L (136-145) Potassium Level 3.7 mmol/L (3.5-5.1) Chloride Level 100 mmol/L (98-107) Carbon Dioxide Level 28 mmol/L (21-32) Anion Gap 9 (6-14) Blood Urea Nitrogen 35 mg/dL (7-20) Creatinine 5.2 mg/dL (0.6-1.0) Estimated GFR (Cockcroft-Gault) 8.2 Glucose Level 123 mg/dL (70-99) Calcium Level 8.5 mg/dL (8.5-10.1) Laboratory Tests Test 01/15/21 04:00 Sodium Level 137 mmol/L (136-145) Potassium Level 3.7 mmol/L (3.5-5.1) Chloride Level 100 mmol/L (98-107) Carbon Dioxide Level 28 mmol/L (21-32) Anion Gap 9 (6-14) Blood Urea Nitrogen 35 mg/dL (7-20) Creatinine 5.2 mg/dL (0.6-1.0) Estimated GFR (Cockcroft-Gault) 8.2 Glucose Level 123 mg/dL (70-99) Calcium Level 8.5 mg/dL (8.5-10.1) Microbiology 01/06/21 Blood Culture - Final, Complete NO GROWTH AFTER 5 DAYS 01/05/21 Gram Stain - Final, Complete 01/05/21 Aerobic and Anaerobic Culture - Final, Complete Medications Current Medications Piperacillin Sod/ Tazobactam Sod 3.375 gm/Sodium Chloride 50 ml @ 100 mls/hr 1X ONCE IV Last administered on 01/03/21at 19:12; Start 01/03/21 at 18:45; Stop 01/03/21 at 19:14; Status DC Iohexol (Omnipaque 300 Mg/ml) 60 ml 1X ONCE IV Last administered on 01/03/21at 20:00; Start 01/03/21 at 20:00; Stop 01/03/21 at 20:01; Status DC Iohexol (Omnipaque 240 Mg/ml) 50 ml 1X ONCE PO Last administered on 01/03/21at 20:46; Start 01/03/21 at 20:45; Stop 01/03/21 at 20:46; Status DC Info (CONTRAST GIVEN -- Rx MONITORING) 1 each PRN DAILY PRN MC SEE COMMENTS; Start 01/03/21 at 20:45; Stop 01/05/21 at 20:44; Status DC Sodium Chloride 1,000 ml @ 1,000 mls/hr 1X ONCE IV Last administered on 01/03/21at 21:54; Start 01/03/21 at 21:45; Stop 01/03/21 at 22:44; Status DC Ibuprofen (Motrin) 400 mg PRN Q6HRS PRN PO INFLAMMATION; Start 01/04/21 at 00:45; Status Cancel Ondansetron HCl (Zofran) 4 mg PRN Q6HRS PRN IVP NAUSEA/VOMITING Last administered on 01/10/21at 09:37; Start 01/04/21 at 01:30 Al Hydroxide/Mg Hydroxide (Mylanta Plus Xs) 30 ml PRN Q3HRS PRN PO HEARTBURN / GAS; Start 01/04/21 at 01:30 Calcium Carbonate/ Glycine (Tums) 500 mg PRN Q3HRS PRN PO UPSET STOMACH; Start 01/04/21 at 01:30 Ibuprofen (Motrin) 400 mg PRN Q6HRS PRN PO INFLAMMATION Last administered on 01/12/21at 03:01; Start 01/04/21 at 01:30; Stop 01/12/21 at 11:35; Status DC Magnesium Hydroxide (Milk Of Magnesia) 2,400 mg PRN Q12HR PRN PO CONSTIPATION; Start 01/04/21 at 01:30 Bisacodyl (Dulcolax Supp) 10 mg PRN DAILY PRN VT CONSTIPATION; Start 01/04/21 at 01:30 Heparin Sodium (Porcine) (Heparin Sodium) 5,000 unit Q12HR SQ Last administered on 01/14/21at 21:14; Start 01/04/21 at 09:00 Piperacillin Sod/ Tazobactam Sod (Zosyn Per Pharmacy) 1 each PRN DAILY PRN MC SEE COMMENTS; Start 01/04/21 at 09:00; Status Cancel Piperacillin Sod/ Tazobactam Sod 3.375 gm/Sodium Chloride 50 ml @ 100 mls/hr Q6H IV Last administered on 01/06/21at 09:00; Start 01/04/21 at 09:00; Stop 01/06/21 at 09:09; Status DC Sodium Chloride 1,000 ml @ 75 mls/hr [id number] IV Last administered on 01/04/21at 21:10; Start 01/04/21 at 12:00; Stop 01/05/21 at 13:56; Status DC Vancomycin HCl (Vanco Per Pharmacy) 1 each PRN DAILY PRN MC SEE COMMENTS Last administered on 01/05/21at 11:15; Start 01/04/21 at 14:45; Stop 01/06/21 at 09:17; Status DC Vancomycin HCl 1.25 gm/Sodium Chloride 250 ml @ 166.667 mls/hr 1X ONCE IV Last administered on 01/04/21at 15:58; Start 01/04/21 at 15:30; Stop 01/04/21 at 16:59; Status DC Vancomycin HCl 750 mg/Sodium Chloride 250 ml @ 250 mls/hr Q24H IV Last admin istered on 01/05/21at 17:49; Start 01/05/21 at 16:00; Stop 01/06/21 at 09:15; Status DC Vancomycin HCl (Vancomycin Trough Level) 1 each 1X ONCE MC ; Start 01/06/21 at 15:30; Stop 01/06/21 at 09:17; Status DC Lidocaine HCl (Buffered Lidocaine 1%) 3 ml STK-MED ONCE .ROUTE ; Start 01/05/21 at 07:43; Stop 01/05/21 at 07:43; Status DC Lidocaine HCl (Buffered Lidocaine 1%) 3 ml 1X ONCE IJ Last administered on 01/05/21at 08:50; Start 01/05/21 at 08:45; Stop 01/05/21 at 08:46; Status DC Lactobacillus Rhamnosus (Culturelle) 1 cap BID PO Last administered on 01/14/21at 21:05; Start 01/05/21 at 21:00 Vitamin B Complex (Folbic Tablet) 1 tab DAILY PO Last administered on 01/14/21at 08:19; Start 01/05/21 at 14:30 Cyanocobalamin (Vitamin B-12) 1,000 mcg 1X ONCE IM Last administered on 01/05/21at 14:36; Start 01/05/21 at 14:30; Stop 01/05/21 at 14:31; Status DC Potassium Chloride (Klor-Con) 20 meq [id number] PO Last administered on 01/08/21at 10:03; Start 01/06/21 at 08:00; Stop 01/09/21 at 09:59; Status DC Potassium Chloride (Klor-Con) 40 meq 1X ONCE PO Last administered on 01/05/21at 14:35; Start 01/05/21 at 14:30; Stop 01/05/21 at 14:31; Status DC Magnesium Sulfate 50 ml @ 25 mls/hr 1X ONCE IV Last administered on 01/05/21at 14:35; Start 01/05/21 at 15:00; Stop 01/05/21 at 16:59; Status DC Vitamin D (Vitamin D3) 5,000 unit DAILY PO Last administered on 01/14/21at 08:19; Start 01/05/21 at 14:30 Potassium Chloride (Klor-Con) 20 meq 1X ONCE PO Last administered on 01/05/21at 17:49; Start 01/05/21 at 18:00; Stop 01/05/21 at 18:01; Status DC Piperacillin Sod/ Tazobactam Sod (Zosyn Per Pharmacy) 1 each PRN DAILY PRN MC SEE COMMENTS; Start 01/06/21 at 09:15; Stop 01/06/21 at 17:55; Status DC Piperacillin Sod/ Tazobactam Sod 3.375 gm/Sodium Chloride 50 ml @ 100 mls/hr Q6HRS IV Last administered on 01/06/21at 17:43; Start 01/06/21 at 12:00; Stop 01/06/21 at 17:55; Status DC Furosemide (Lasix) 20 mg DAILY PO Last administered on 01/08/21at 10:04; Start 01/06/21 at 10:30; Stop 01/09/21 at 09:36; Status DC Spironolactone (Aldactone) 100 mg DAILY PO Last administered on 01/08/21at 10:04; Start 01/06/21 at 10:30; Stop 01/09/21 at 09:37; Status DC Nafcillin Sodium 2 gm/Dextrose 100 ml @ 200 mls/hr Q4HRS IV Last administered on 01/10/21at 08:14; Start 01/06/21 at 20:00; Stop 01/10/21 at 09:26; Status DC Pantoprazole Sodium (PROTONIX VIAL for IV PUSH) 40 mg DAILYAC IVP Last administered on 01/15/21at 09:11; Start 01/08/21 at 14:30 Sodium Polystyrene Sulfonate (Kayexalate) 15 gm 1X ONCE PO Last administered on 01/09/21at 12:28; Start 01/09/21 at 09:45; Stop 01/09/21 at 09:46; Status DC Lidocaine HCl (Buffered Lidocaine 1%) 3 ml 1X ONCE IJ Last administered on 01/09/21at 11:46; Start 01/09/21 at 11:30; Stop 01/09/21 at 11:31; Status DC Lidocaine HCl (Buffered Lidocaine 1%) 3 ml STK-MED ONCE .ROUTE ; Start 01/09/21 at 11:21; Stop 01/09/21 at 11:22; Status DC Albumin Human 100 ml @ As Directed STK-MED ONCE IV ; Start 01/09/21 at 11:53; Stop 01/09/21 at 11:54; Status DC Albumin Human 100 ml @ 100 mls/hr 1X ONCE IV Last administered on 01/09/21at 12:00; Start 01/09/21 at 12:00; Stop 01/09/21 at 12:59; Status DC Albumin Human 100 ml @ 100 mls/hr 1X ONCE IV Last administered on 01/09/21at 13:12; Start 01/09/21 at 12:15; Stop 01/09/21 at 13:14; Status DC Sodium Chloride 1,000 ml @ 75 mls/hr [id number] IV Last administered on 01/11/21at 14:52; Start 01/09/21 at 13:00; Stop 01/12/21 at 11:31; Status DC Sodium Polystyrene Sulfonate (Kayexalate) 15 gm 1X ONCE PO Last administered on 01/09/21at 18:46; Start 01/09/21 at 18:00; Stop 01/09/21 at 18:01; Status DC Sodium Polystyrene Sulfonate (Kayexalate) 15 gm 1X ONCE PO Last administered on 01/10/21at 09:23; Start 01/10/21 at 07:00; Stop 01/10/21 at 07:01; Status DC Fentanyl Citrate (Fentanyl 2ml Vial) 25 mcg PRN Q5MIN PRN IVP MILD PAIN 1-3; Start 01/11/21 at 06:00; Stop 01/12/21 at 05:59; Status DC Fentanyl Citrate (Fentanyl 2ml Vial) 50 mcg PRN Q5MIN PRN IVP MODERATE PAIN 4- 6; Start 01/11/21 at 06:00; Stop 01/12/21 at 05:59; Status DC Morphine Sulfate (Morphine Sulfate) 1 mg PRN Q10MIN PRN IVP SEVERE PAIN 7-10; Start 01/11/21 at 06:00; Stop 01/12/21 at 05:59; Status DC Ringer's Solution 1,000 ml @ 30 mls/hr Q24H IV ; Start 01/11/21 at 06:00; Stop 01/11/21 at 17:59; Status DC Hydromorphone HCl (Dilaudid) 0.5 mg PRN Q10MIN PRN IVP SEVERE PAIN 7-10, 2nd CHOICE; Start 01/11/21 at 06:00; Stop 01/12/21 at 05:59; Status DC Prochlorperazine Edisylate (Compazine) 5 mg PACU PRN PRN IVP NAUSEA, MRX1; Start 01/11/21 at 06:00; Stop 01/12/21 at 05:59; Status DC Cefazolin Sodium (Ancef) 1 gm DAILY IVP Last administered on 01/12/21at 16:50; Start 01/10/21 at 11:00; Stop 01/13/21 at 08:21; Status DC Lidocaine HCl (Buffered Lidocaine 1%) 3 ml STK-MED ONCE .ROUTE ; Start 01/10/21 at 10:54; Stop 01/10/21 at 10:55; Status DC Lidocaine HCl (Buffered Lidocaine 1%) 6 ml 1X ONCE INJ Last administered on 01/10/21at 11:40; Start 01/10/21 at 11:00; Stop 01/10/21 at 11:01; Status DC Sodium Chloride 150 ml @ 50 mls/hr 1X ONCE IV ; Start 01/10/21 at 12:30; Stop 01/10/21 at 16:49; Status DC Sodium Chloride 1,000 ml @ 1,000 mls/hr Q1H PRN IV hypotension; Start 01/10/21 at 12:30; Stop 01/10/21 at 18:29; Status DC Albumin Human 200 ml @ 200 mls/hr 1X PRN PRN IV Hypotension Last administered on 01/10/21at 14:17; Start 01/10/21 at 12:30; Stop 01/10/21 at 18:29; Status DC Sodium Chloride 1,000 ml @ 400 mls/hr Q2H30M PRN IV PATENCY; Start 01/10/21 at 12:30; Stop 01/11/21 at 00:29; Status DC Info (PHARMACY MONITORING -- do not chart) 1 each PRN DAILY PRN MC SEE COMMENTS; Start 01/10/21 at 13:15; Stop 01/12/21 at 07:34; Status DC Info (PHARMACY MONITORING -- do not chart) 1 each PRN DAILY PRN MC SEE COMMENTS; Start 01/10/21 at 13:15; Stop 01/12/21 at 15:18; Status DC Potassium Chloride (Klor-Con) 10 meq 1X ONCE PO Last administered on 01/10/21at 17:16; Start 01/10/21 at 17:00; Stop 01/10/21 at 17:01; Status DC Benzocaine (Hurricaine One) 2 spray 1X ONCE MM Last administered on 01/11/21at 13:10; Start 01/11/21 at 07:45; Stop 01/11/21 at 07:46; Status DC Lidocaine HCl (Xylocaine 2% Topical 30gm Tube) 1 lauren 1X ONCE TP Last administered on 01/11/21at 13:10; Start 01/11/21 at 07:45; Stop 01/11/21 at 07:46; Status DC Lidocaine HCl (Viscous Lidocaine) 15 ml 1X ONCE SWSW Last administered on 01/11/21at 13:10; Start 01/11/21 at 07:45; Stop 01/11/21 at 07:46; Status DC Benzocaine (Hurricaine One) 1 spray STK-MED ONCE .ROUTE ; Start 01/11/21 at 12:46; Stop 01/11/21 at 12:46; Status DC Lidocaine HCl (Viscous Lidocaine) 15 ml STK-MED ONCE .ROUTE ; Start 01/11/21 at 12:46; Stop 01/11/21 at 12:46; Status DC Lidocaine HCl (Xylocaine 2% Topical 30gm Tube) 30 lauren STK-MED ONCE TP ; Start 01/11/21 at 12:47; Stop 01/11/21 at 12:47; Status DC Propofol (Diprivan) 200 mg STK-MED ONCE IV ; Start 01/11/21 at 13:02; Stop 01/11/21 at 13:03; Status DC Lidocaine HCl (Lidocaine Pf 2% Vial) 5 ml STK-MED ONCE .ROUTE ; Start 01/11/21 at 13:02; Stop 01/11/21 at 13:03; Status DC Lidocaine HCl (Xylocaine 2% Topical 30gm Tube) 1 lauren 1X ONCE TP ; Start 01/11/21 at 13:10; Stop 01/11/21 at 13:29; Status DC Sodium Chloride 1,000 ml @ 1,000 mls/hr Q1H PRN IV hypotension; Start 01/12/21 at 07:30; Stop 01/12/21 at 13:29; Status DC Albumin Human 200 ml @ 200 mls/hr 1X PRN PRN IV Hypotension; Start 01/12/21 at 07:30; Stop 01/12/21 at 13:29; Status DC Sodium Chloride 1,000 ml @ 400 mls/hr Q2H30M PRN IV PATENCY; Start 01/12/21 at 07:30; Stop 01/12/21 at 19:29; Status DC Info (PHARMACY MONITORING -- do not chart) 1 each PRN DAILY PRN MC SEE COMMENTS; Start 01/12/21 at 07:30; Stop 01/12/21 at 07:34; Status DC Info (PHARMACY MONITORING -- do not chart) 1 each PRN DAILY PRN MC SEE COMMENTS; Start 01/12/21 at 07:30 Albumin Human 100 ml @ 100 mls/hr 1X ONCE IV Last administered on 01/12/21at 11:08; Start 01/12/21 at 10:30; Stop 01/12/21 at 11:29; Status DC Metoprolol Tartrate (Lopressor Vial) 5 mg PRN Q5MIN PRN IVP TACHYCARDIA Last administered on 01/12/21at 21:02; Start 01/12/21 at 11:30; Stop 01/12/21 at 23:43; Status DC Furosemide (Lasix) 40 mg [id number] PO Last administered on 01/14/21at 13:30; Start 01/12/21 at 14:00 Spironolactone (Aldactone) 50 mg DAILY PO Last administered on 01/14/21at 08:19; Start 01/12/21 at 14:00 Lidocaine HCl (Buffered Lidocaine 1%) 6 ml 1X ONCE INJ Last administered on 01/12/21at 12:50; Start 01/12/21 at 12:30; Stop 01/12/21 at 12:31; Status DC Lidocaine HCl (Buffered Lidocaine 1%) 3 ml STK-MED ONCE .ROUTE ; Start 01/12/21 at 12:53; Stop 01/12/21 at 12:53; Status DC Furosemide (Lasix) 40 mg 1X ONCE IVP Last administered on 01/13/21at 00:01; Start 01/13/21 at 00:00; Stop 01/13/21 at 00:01; Status DC Metoprolol Tartrate (Lopressor Vial) 5 mg PRN Q2HR PRN IVP TACHYCARDIA Last administered on 01/13/21at 02:52; Start 01/12/21 at 23:45 Alprazolam (Xanax) 0.5 mg PRN Q8HRS PRN PO ANXIETY / AGITATION Last administered on 01/13/21at 03:18; Start 01/13/21 at 03:15 Cefazolin Sodium (Ancef) 1 gm Q12HR IVP Last administered on 01/15/21at 09:11; Start 01/13/21 at 09:00 Morphine Sulfate (Morphine Sulfate) 2 mg PRN Q2HR PRN IV PAIN Last administered on 01/14/21at 21:18; Start 01/13/21 at 11:15 Lorazepam (Ativan Inj) 1 mg PRN Q4HRS PRN IVP ANXIETY / AGITATION Last administered on 01/13/21at 11:20; Start 01/13/21 at 11:15 Metoprolol Tartrate (Lopressor) 25 mg BID PO Last administered on 01/14/21at 21:05; Start 01/13/21 at 12:30 Active Scripts Active Reported Lasix (Furosemide) 20 Mg Tablet 20 Mg PO DAILY B Complex (Vitamin B Complex) 1 Each Tablet 1 Tab PO DAILY 30 Days Spironolactone 100 Mg Tablet 100 Mg PO DAILY Milk Thistle (Milk Thistle Seed Extract) 140 Mg Capsule 140 Mg PO DAILY Ibuprofen 400 Mg Tablet 400 Mg PO PRN Q6HRS PRN D3 + K2 Dots 1,000 Units Tab (Vitamin D3/Vitamin K2) 1 Each Tab.rapdis 1 Tab PO DAILY 30 Days Vitamin A 8,000 Unit Capsule 1 Cap PO DAILY 30 Days Vitals/I & O Vital Sign - Last 24 Hours 01/14/21 01/14/21 01/14/21 01/14/21 11:00 13:44 14:14 15:00 Temp 98.1 97.7 98.1 97.7 Pulse 85 84 Resp 18 16 18 B/P (MAP) 102/57 (72) 106/63 (77) Pulse Ox 96 96 96 98 O2 Delivery Nasal Cannula Nasal Cannula Nasal Cannula Nasal Cannula O2 Flow Rate 3.0 3.0 3.0 3.0 01/14/21 01/14/21 01/14/21 01/14/21 19:00 19:33 21:05 21:18 Temp 96.4 96.4 Pulse 109 109 Resp 20 16 B/P (MAP) 108/57 (74) 108/57 Pulse Ox 96 92 O2 Delivery Nasal Cannula Nasal Cannula Nasal Cannula O2 Flow Rate 3.0 3.0 01/14/21 01/15/21 01/15/21 23:00 03:00 07:00 Temp 97.5 97.5 98.0 97.5 97.5 98.0 Pulse 88 74 84 Resp 18 22 21 B/P (MAP) 107/60 (76) 98/57 (71) 97/54 (68) Pulse Ox 95 94 96 O2 Delivery Nasal Cannula Nasal Cannula Nasal Cannula O2 Flow Rate 3.0 3.0 Intake and Output 01/14/21 01/14/21 01/15/21 15:00 23:00 07:00 Intake Total 380 ml 200 ml 200 ml Balance 380 ml 200 ml 200 ml Nutrition Consultation Dietary Evaluation: Recommendations by RD: Dietary education by RD, Increase Calorie Intake, Protein supplementation Comments: REC Renal diet with Nepro supplements Expected Outcomes/Goals: to meet >75% est nutr needs- goal ongoing Malnutrition Findings: Muscle Mass (Severe): Severe Depletion Weight Status: Underweight Fluid Accumulation (Severe): Severe Justicifation of Admission Dx: Justifications for Admission: Justification of Admission Dx: N/A JENNIFER ARREGUIN MD Jan 15, 2021 09:46
[2021-01-15] MEDS ORDERED: LORA-434 PO (09:50)
[2021-01-15] MEDS ORDERED: MORP20SO PO (09:50)
--- NOTE | 2021-01-15 09:54 | SNU/HH DC ---
DISCHARGE ORDERS DISCHARGE INFORMATION: DISCHARGE DATE: Jan 15, 2021 FINAL DIAGNOSIS liver failure bacteremia sepsis hepatorenal syndrome Problems Medical Problems: (1) Sepsis Status: Acute CONDITION ON DISCHARGE: Stable CODE STATUS: Code Status: DNR/DNI HOSPICE: HOSPICE: Yes HOSPICE EVAL & TREAT: Yes POST DISCHARGE ORDERS: ACTIVITY ORDERS: Activity as tolerated WEIGHT BEARING STATUS: Full weight bearing, As tolerated BATHING ORDERS: Shower-keep dressing dry, No Tub Bath until see DIET AFTER DISCHARGE: Regular CHECKS AFTER DISCHARGE: CHECKS AFTER DISCHARGE: Weigh Yourself Daily FOLLOW-UP: PHYSICIAN FOLLOW-UP: hospice TREATMENT/EQUIPMENT ORDERS: ADAPTIVE EQUIPMENT NEEDED: Commode, Front wheeled walker DISCHARGE MEDICATIONS: Home Meds Active Scripts Amoxicillin/Potassium Clav (AUGMENTIN 500-125 TABLET) 1 Each Tablet, 1 TAB PO DAILY for infection for 10 Days, #10 TAB 0 Refills Prov:JENNIFER ARREGUIN MD 01/15/21 Lorazepam (ATIVAN) 1 Mg Tablet, 1 MG PO TID PRN for ANXIETY / AGITATION, #60 TAB Prov:JENNIFER ARREGUIN MD 01/15/21 Morphine Sulfate (MORPHINE SULFATE) 20 Mg/5 Ml Solution, 10 MG PO Q2HR PRN for PAIN, #150 MISC Prov:JENNIFER ARREGUIN MD 01/15/21 Reported Medications Furosemide (LASIX) 20 Mg Tablet, 20 MG PO DAILY for diuretic, TAB 01/04/21 Spironolactone (SPIRONOLACTONE) 100 Mg Tablet, 100 MG PO DAILY for htn, TAB 01/04/21 Ibuprofen (IBUPROFEN) 400 Mg Tablet, 400 MG PO PRN Q6HRS PRN for INFLAMMATION, TAB 12/05/20 Discontinued Reported Medications Vitamin B Complex (B COMPLEX) 1 Each Tablet, 1 TAB PO DAILY for supplement for 30 Days, #30 TAB 0 Refills 01/04/21 Milk Thistle Seed Extract (MILK THISTLE) 140 Mg Capsule, 140 MG PO DAILY for PRESCRIBED, CAP 12/05/20 Vitamin D3/Vitamin K2 (D3 + K2 DOTS 1,000 UNITS TAB) 1 Each Tab.rapdis, 1 TAB PO DAILY for PRESCRIBED for 30 Days, #30 TAB 0 Refills 12/05/20 Vitamin A (VITAMIN A) 8,000 Unit Capsule, 1 CAP PO DAILY for PRESCRIBED for 30 Days, #30 CAP 0 Refills 12/05/20 JENNIFER ARREGUIN MD Jan 15, 2021 09:54
--- NOTE | 2021-01-15 09:59 | PDOC3 ---
Discharge Summary Visit Information Date of Admission: Jan 03, 2021 Date of Discharge: Jan 15, 2021 Final Diagnosis sepsis UTI MSSA bacteremia, abd ascites, hepatic cirrhosis, liver disease from EtOH abuse for years, MELD to 35 s/p paracentesis URVASHI due to vasomotor nephropathy, possible hepatorenal syndrome Acute electrolyte derangementhyperkalemia, hyponatremia Hyperbilirubinemia Severe protein malnutrition New onset A. fib RVR weakness and debility 01/14/21 Pt seen and examined Pt resting upon examination, more comfortable today. DWRN Chart reviewed 01/13/21 Pt seen and examined Discussed next steps regarding hospice with pt's brother and DPOA Lan as well as her sisters. Pt states she is interested in hospice. Pt and family would like a drain inserted for home management of ascites. - Dr. Mcclelland agreed place Pleurx device after discussion today. DWRN Chart reviewed Problems Medical Problems: (1) Sepsis Status: Acute Brief Hospital Course Allergies Allergies Coded Allergies Type Severity Reaction Last Updated Verified No Known Drug Allergies 01/11/21 No Vital Signs Vital Signs Date Time Temp Pulse Resp B/P (MAP) Pulse Ox O2 Delivery O2 Flow Rate FiO2 01/15/21 07:00 98.0 84 21 97/54 (68) 96 Nasal Cannula 3.0 98.0 Lab Results Laboratory Tests Test 01/15/21 04:00 Sodium Level 137 mmol/L (136-145) Potassium Level 3.7 mmol/L (3.5-5.1) Chloride Level 100 mmol/L (98-107) Carbon Dioxide Level 28 mmol/L (21-32) Anion Gap 9 (6-14) Blood Urea Nitrogen 35 mg/dL (7-20) Creatinine 5.2 mg/dL (0.6-1.0) Estimated GFR (Cockcroft-Gault) 8.2 Glucose Level 123 mg/dL (70-99) Calcium Level 8.5 mg/dL (8.5-10.1) Laboratory Tests Test 01/15/21 04:00 Sodium Level 137 mmol/L (136-145) Potassium Level 3.7 mmol/L (3.5-5.1) Chloride Level 100 mmol/L (98-107) Carbon Dioxide Level 28 mmol/L (21-32) Anion Gap 9 (6-14) Blood Urea Nitrogen 35 mg/dL (7-20) Creatinine 5.2 mg/dL (0.6-1.0) Estimated GFR (Cockcroft-Gault) 8.2 Glucose Level 123 mg/dL (70-99) Calcium Level 8.5 mg/dL (8.5-10.1) Brief Hospital Course Ms. Galeano is a 70 old female, admit with recurrent abd ascites, liver failure, confusion, noted sepsis, bacteremia found TTE And DESTIN OK, no vegetation CV, GI, renal and ID consult pt renal function declined and required dialysis, she was very malnourshed and very weak, confused at times some encephalopathy, plan was reviewed, to place a PLUEREX drain, so fluid can be managed at home, and DC to hospice care Discharge Information Condition at Discharge: Stable Disposition/Orders: D/C to Home w/ Hospice Scheduled Amoxicillin/Potassium Clav (Augmentin 500-125 Tablet) 1 Each Tablet, 1 TAB PO DAILY for infection for 10 Days, #10 Ref 0 Prescribed by: JENNIFER ARREGUIN on 01/15/21 1001 Furosemide (Lasix) 20 Mg Tablet, 20 MG PO DAILY for diuretic, (Reported) Entered as Reported by: SKYLER SAWANT on 01/04/211807 Last Action: Continued on 01/06/21 1005 by JENNIFER ARREGUIN Spironolactone (Spironolactone) 100 Mg Tablet, 100 MG PO DAILY for htn, (Reported) Entered as Reported by: SKYLER SAWANT on 01/04/211804 Last Action: Converted on 01/06/21 1005 by JENNIFER ARREGUIN Scheduled PRN Ibuprofen (Ibuprofen) 400 Mg Tablet, 400 MG PO PRN Q6HRS PRN for INFLAMMATION, (Reported) Entered as Reported by: Brisa Hahn on 12/05/20 1113 Last Action: Reviewed on 01/03/21 4358 by TOYA GREENE, RN Lorazepam (Ativan) 1 Mg Tablet, 1 MG PO TID PRN for ANXIETY / AGITATION, #60 Prescribed by: JENNIFER ARREGUIN on 01/15/21 0950 Morphine Sulfate (Morphine Sulfate) 20 Mg/5 Ml Solution, 10 MG PO Q2HR PRN for PAIN, #150 Prescribed by: JENNIFER ARREGUIN on 01/15/21 0950 Discontinued Medications Milk Thistle Seed Extract (Milk Thistle) 140 Mg Capsule, 140 MG PO DAILY for PRESCRIBED, (Reported) Entered as Reported by: Brisa Hahn on 12/05/20 1113 Last Action: Reviewed on 01/03/212347 by TOYA GREENE RN Vitamin A (Vitamin A) 8,000 Unit Capsule, 1 CAP PO DAILY for PRESCRIBED for 30 Days, #30 Ref 0 (Reported) Entered as Reported by: Brisa Hahn on 12/05/20 1111 Last Action: Reviewed on 01/03/212347 by TOYA GREENE RN Vitamin B Complex (B Complex) 1 Each Tablet, 1 TAB PO DAILY for supplement for 30 Days, #30 Ref 0 (Reported) Entered as Reported by: SKYLER SAWANT on 01/04/211804 Last Action: New Order on 01/04/211804 by SKYLER SAWANT Vitamin D3/Vitamin K2 (D3 + K2 Dots 1,000 Units Tab) 1 Each Tab.rapdis, 1 TAB PO DAILY for PRESCRIBED for 30 Days, #30 Ref 0 (Reported) Entered as Reported by: Brisa Hahn on 12/05/20 111 Last Action: Reviewed on 01/03/212347 by TOYA GREENE RN Patient Instructions Patient Instructions > 30 min face to face exam Justicifation of Admission Dx: Justifications for Admission: Justification of Admission Dx: N/A JENNIFER ARREGUIN MD Jan 15, 2021 09:59
[2021-01-15] MEDS ORDERED: AMOX1TAB58 PO (10:01)
--- NOTE | 2021-01-15 10:29 | PDOC ---
Date of Service: DATE: 01/15/21 TIME: 10:27 Subjective: Subjective: Thirsty, waiting for drain placement. Objective: Objective: Reviewed chart - plans for Hospice, removing HD cath, PleurX placement. Vital Signs: Vital Signs Date Time Temp Pulse Resp B/P (MAP) Pulse Ox O2 Delivery O2 Flow Rate FiO2 01/15/21 07:40 Nasal Cannula 3.0 01/15/21 07:00 98.0 84 21 97/54 (68) 96 98.0 Labs: Laboratory Tests Test 01/15/21 04:00 Sodium Level 137 mmol/L Potassium Level 3.7 mmol/L Chloride Level 100 mmol/L Carbon Dioxide Level 28 mmol/L Anion Gap 9 Blood Urea Nitrogen 35 mg/dL Creatinine 5.2 mg/dL Estimated GFR (Cockcroft-Gault) 8.2 Glucose Level 123 mg/dL Calcium Level 8.5 mg/dL Imaging: Paracentesis 12/12 1600cc CXR 12/12 Impression: Constellation of findings typical of worsening volume overload/congestive heart failure to include plethoric central vasculature, an increasing right pleural effusion and more pronounced interstitial markings/peribronchial cuffing. PE: GEN: NAD, was sleeping LUNGS: NC 3L HEART: RRR ABD: distended w/ ascites, hernia NEURO/PSYCH: A & O 3, probably forgetful A/P: Cirrhosis, recurrent ascites, HRS MSSA bacteremia Abd wall hernia containing SB COVID negative 01/04 -- Plans for Hospice as above, GI will sign off. Justicifation of Admission Dx: Justifications for Admission: Justification of Admission Dx: N/A KATHIE CLEMENTS Jan 15, 2021 10:29
--- NOTE | 2021-01-15 10:45 | NUR ---
SW following for discharge planning. Spoke with RN and reviewed chart. Pt to discharge home today with 24 hour care from family and hospice. Spoke with pt's brother by phone and they would like to use [facility] as their provider. Patient choice of vendor from completed. Referral phoned and faxed to Roxann at [facility]. Clinicals and discharge orders with scripts were faxed and are in a packet to be sent with pt. Copy of scripts on chart. SW met with pt and pt's two sisters at bedside to discuss discharge planning. Pt to have a plurex drain placed today. Pt to discharge via EMS stretcher transport with 02 at 1800. PCS form phoned and faxed and copy placed on chart. SW provided support and answered questions about hospice and what it provides. Roxann with [facility] to coordinate DME delivery with the brother. Pt will need a hospital bed and home 02. RN to call report. No further SW needs at this time. Addendum: 01/15/21 at 1233 by LIBORIO HERNANDEZ MARY spoke with Kerry from [facility] and confirmed orders received. DME to be delivered today and hospice to admit this patient at 2100 upon arrival home. Addendum: 01/15/21 at 1335 by LIBORIO HERNANDEZ Kerry called this SW back and asked if plurex drain supplies could be sent home with pt for this evening as they would have the supplies by tomorrow. RN notified.
--- NOTE | 2021-01-15 10:59 | PDOC ---
Infectious Disease Note Subjective Subjective Patient feels better Still has some abdominal distension and abdominal discomfort Denies fever or chills,nausea or vomiting Hospice decided ROS ROS no n/v/d/ Vital Sign Vital Signs Vital Signs Date Time Temp Pulse Resp B/P (MAP) Pulse Ox O2 Delivery O2 Flow Rate FiO2 01/15/21 07:40 Nasal Cannula 3.0 01/15/21 07:00 98.0 84 21 97/54 (68) 96 98.0 Physical Exam PHYSICAL EXAM GENERAL: alert, thin, smiling HEENT: Pupils equally round, normal conjunctivae, mild icterus. Oral cavity, pink. No lesions seen. NECK: Supple. Right temporary HDC catheter present LUNGS: Diminished aeration at the bases. No accessory muscle use. HEART: Normal S1, S2. No murmur appreciated. ABDOMEN: Distended, taut, mildly tender with bowel sounds present. Umbilical hernia noted. EXTREMITIES: No gross edema or cyanosis. SKIN: Warm to touch. No signs of rash. NEUROLOGIC: Alert, answering questions appropriately. Peripheral IV looks okay. Labs Lab Laboratory Tests Test 01/15/21 04:00 Sodium Level 137 mmol/L (136-145) Potassium Level 3.7 mmol/L (3.5-5.1) Chloride Level 100 mmol/L (98-107) Carbon Dioxide Level 28 mmol/L (21-32) Anion Gap 9 (6-14) Blood Urea Nitrogen 35 mg/dL (7-20) Creatinine 5.2 mg/dL (0.6-1.0) Estimated GFR (Cockcroft-Gault) 8.2 Glucose Level 123 mg/dL (70-99) Calcium Level 8.5 mg/dL (8.5-10.1) Micro Microbiology 01/06/21 Blood Culture - Final, Complete NO GROWTH AFTER 5 DAYS 01/05/21 Gram Stain - Final, Complete 01/05/21 Aerobic and Anaerobic Culture - Final, Complete Objective Assessment MSSA bacteremia from 01/03/2021. DESTIN negative for vegetation on 01/11/21 MSSA peritonitis from 12/05/2020. Repeat paracentesis on 01/05/2021 also indicative peritonitis with 1100 wbc's. -Cult neg so far -Repeat paracentesis 01/09/2021 Leukocytosis. Alcoholic liver disease with recurrent ascites. Umbilical hernia. Weight loss. Coagulopathy Hyponatremia, Abd wall hernia containing SB COVID negative 01/04 URVASHI s/p temporary HDC ( 01/10) Plan Plan of Care pt is on cefazolin, pt is going home on hospice, d/w pt and brother if they decide oral keflex ok HARISH HUMPHRIES MD Jan 15, 2021 10:59
[2021-01-15 11:00] VITALS: BP 102/69
[2021-01-15] MEDS ORDERED: ceFAZolin SODIUM IV Push 1 GM VIAL. IVP ONE ×2 (12:13→12:30)
[2021-01-15] MEDS ORDERED: MIDAZOLAM HCL/PF 2 MG/2 ML VIAL. ONE (12:14)
[2021-01-15] MEDS ORDERED: fentaNYL PF VIAL 100 MCG/2 ML VIAL ONE (12:14)
[2021-01-15] MEDS ORDERED: LIDOCAINE 2%/EPI 1:100,000 20 ML VIAL. ONE (12:18)
[2021-01-15] MEDS ORDERED: fentaNYL PF VIAL 100 MCG/2 ML VIAL IV ONE (12:30)
[2021-01-15] MEDS ORDERED: LIDOCAINE 2%/EPI 1:100,000 20 ML VIAL. IJ ONE (12:30)
[2021-01-15] MEDS ORDERED: MIDAZOLAM HCL/PF 2 MG/2 ML VIAL. IV ONE (12:30)
[2021-01-15 13:13] VITALS: BP 104/50
[2021-01-15] MEDS: CHOLECALCIFEROL (VITAMIN D3) 5,000 UNIT CAPSULE PO SCH (14:13)
[2021-01-15] MEDS: LACTOBACILLUS RHAMNOSUS GG 1 CAPSULE. PO SCH (14:13)
[2021-01-15] MEDS: VITAMIN B12,B9,B6 COMPLEX 1 TABLET. PO SCH (14:13)
--- NOTE | 2021-01-15 14:16 | RAD ---
Ultrasound and fluoroscopically guided placement of a tunneled right peritoneal drainage catheter (Pleurx catheter) 01/15/2021 12:09 PM Indication: Recurrent ascites, patient being discharged on hospice Consent: The procedure was explained in its entirety to the patient or the patients designated sales representative meats by a member of the treatment team, including a discussion of the risks, benefits and commonly accepted alternatives to the procedure, as well as the expected consequences of no therapy whatsoever. Discussion of the risks included, but was not limited to, those that are most frequent and those that are rare but possibly severe or life-threatening, as well as the possibility of unforeseen complications. All elements of maximal sterile barrier technique including the use of a cap, mask, sterile gown, sterile gloves, large sterile sheet, appropriate hand hygiene, and 2% chlorhexidine for cutaneous antisepsis (or acceptable alternative antiseptic per current guidelines) were followed for this procedure. Procedure: A timeout procedure was performed. Sonographic evaluation of the abdomen was performed demonstrating moderate ascites, most prominent in the right lower quadrant. The overlying skin was prepped and draped using lenore maximal sterile barrier technique as described. 1% lidocaine was administered for local anesthesia. A 5 Belgian sheath needle was advanced into the peritoneum. Catheter was tunneled from small dermatotomy several centimeters anterior to the access site, to the sheath. Following dilatation a peel-away sheath was placed into the abdomen, through which the catheter was delivered the catheter was connected to suction, and 3 L of ascites was removed. The catheter was secured in place. Sterile dressings were applied. No immediate complications were identified. Total fluoroscopy time: 0.4 minutes Dose area product 1.3 The procedures performed under conscious sedation including continuous cardiopulmonary monitoring via dedicated sedation nurse. [id number] sedation time: 26 minutes IMPRESSION: Tunneled peritoneal drainage catheter for rapidly recurring ascites in this patient with end-stage liver disease
[2021-01-15 15:00] VITALS: BP 116/58
--- NOTE | 2021-01-15 18:43 | NUR ---
Discharge instructions given to pt and pt's family. Education given over pleurex catheter after care and medications. Pt informed [facility] will be meeting pt at her house around 8 pm. Pleurex care kit and pt belongings sent with family. Awaiting EMS transport at this time. Addendum: 01/15/21 at 1850 by BRY CISSE RN RN 16 fr Gauthier catheter in place as pt has urinary retention and for hospice comfort care. Pt's sister at bedside for education. Pt and family verbalizes understanding of discharge instructions.
== END 2021-01-15 19:20 | disposition hospice, home (50) | DRG 871 ==
LOC: ER 17:20 → 4 NORTH 21:33 → 6 SOUTH 01-12 14:00
PROVIDERS: ADMIT Family Medicine; ATTEND Family Medicine
PROC: 0W9G3ZZ Drainage of Peritoneal Cavity, Percutaneous Approach (ICD-10-PCS; 2021-01-05)
PROC: 0W9G3ZZ Drainage of Peritoneal Cavity, Percutaneous Approach (ICD-10-PCS; 2021-01-09)
PROC: 02H633Z Insertion of Infusion Device into Right Atrium, Percutaneous Approach (ICD-10-PCS; 2021-01-10)
PROC: B5181ZA Fluoroscopy of Superior Vena Cava using Low Osmolar Contrast, Guidance (ICD-10-PCS; 2021-01-10)
PROC: B548ZZA Ultrasonography of Superior Vena Cava, Guidance (ICD-10-PCS; 2021-01-10)
PROC: 5A1D70Z Performance of Urinary Filtration, Intermittent, Less than 6 Hours Per Day (ICD-10-PCS; 2021-01-10)
PROC: B24BZZ4 Ultrasonography of Heart with Aorta, Transesophageal (ICD-10-PCS; principal; 2021-01-11 13:00)
PROC: 0W9G3ZZ Drainage of Peritoneal Cavity, Percutaneous Approach (ICD-10-PCS; 2021-01-12)
PROC: 5A1D70Z Performance of Urinary Filtration, Intermittent, Less than 6 Hours Per Day (ICD-10-PCS; 2021-01-12)
PROC: 0W9G30Z Drainage of Peritoneal Cavity with Drainage Device, Percutaneous Approach (ICD-10-PCS; 2021-01-15)
DX: A41.01 Sepsis due to Methicillin susceptible Staphylococcus aureus (principal); E43 Unspecified severe protein-calorie malnutrition; K65.9 Peritonitis, unspecified; K76.7 Hepatorenal syndrome; N17.0 Acute kidney failure with tubular necrosis; N39.0 Urinary tract infection, site not specified; E87.1 Hypo-osmolality and hyponatremia; D68.9 Coagulation defect, unspecified; G93.40 Encephalopathy, unspecified; I85.10 Secondary esophageal varices without bleeding; K56.609 Unspecified intestinal obstruction, unspecified as to partial versus complete obstruction; E87.5 Hyperkalemia; F10.10 Alcohol abuse, uncomplicated; K70.31 Alcoholic cirrhosis of liver with ascites; D53.9 Nutritional anemia, unspecified; D75.89 Other specified diseases of blood and blood-forming organs; F41.9 Anxiety disorder, unspecified; I11.0 Hypertensive heart disease with heart failure; I48.91 Unspecified atrial fibrillation; I50.9 Heart failure, unspecified; K70.40 Alcoholic hepatic failure without coma; Z20.822 Contact with and (suspected) exposure to COVID-19; Z76.82 Awaiting organ transplant status; Z51.5 Encounter for palliative care; Z79.899 Other long term (current) drug therapy; Z87.891 Personal history of nicotine dependence; F32.9 Major depressive disorder, single episode, unspecified; Z68.20 Body mass index [BMI] 20.0-20.9, adult; Z90.49 Acquired absence of other specified parts of digestive tract
CPT/HCPCS: 32550; 36415; 36556; 49083; 71045; 74177; 75989; 76937; 76942; 77001; 80048; 80053; 80076; 81001; 82105; 82140; 82436; 82607; 83540; 83550; 83605; 83735; 83930; 84100; 84132; 84133; 84145; 84295; 84300; 84443; 85007; 85014; 85018; 85025; 85027; 85610; 86705; 86706; 86709; 86803; 87040; 87071; 87075; 87077; 87186; 87205; 87340; 87426; 88112; 88305; 89050; 93005; 93306; 93312; 93320; 93325; 93976; 96361; 96365; 99152; 99153; 99285; C1729; C1769; C1892; C9113; J0690; J1644; J1940; J2060; J2250; J2270; J2405; J2543; J2704; J3010; J3370; J3420; J3475; J3490; J7030; J7050; J7060; P9046; Q9966; Q9967; U0003; G0378